=== PATIENT | female | born 1980 | race American Indian/Alaskan Native ===

== ENCOUNTER 2020-12-09 10:16 | Emergency (ER) | payer OTHER ==
[2020-12-09 11:27] VITALS: BP 180/98
--- NOTE | 2020-12-09 11:36 | Emergency Department Report ---
ED Back Pain/Injury HPI - General Chief Complaint: Back Pain/Injury Stated Complaint: BACK SPINE Time Seen by Provider: 12/09/20 11:31 Source: patient Limitations: No Limitations - History of Present Illness Initial Comments: The patient was evaluated in the emergency department for symptoms described in the history of present illness. He/she was evaluated in the context of the global COVID-19 pandemic, which necessitated consideration that the patient might be at risk for infection with the virus that causes COVID-19. Institutional protocols and algorithms that pertain to the evaluation of patients at risk for COVID-19 are in a state of rapid change based on information released by regulatory bodies including the CDC and federal and state organizations. These policies and algorithms were followed during the patient's care in the emergency department. Please note that these policies, procedures and recommendations changed on a rapid basis. 40-year-old -Tong[place] female presents to the emergency room complaining of severe back pain to the mid and upper back for 4 days. Patient states she was at work lifting boxes. She denies any falls. States that she does not have a primary care provider at this time. She reports that she has been taking ibuprofen which has not helped. She does have a past medical history of epilepsy and is currently on Keppra 500 mg twice daily. MD Complaint: back pain Onset/Timin -: days(s) Similar Symptoms Previously: No Place: work Quality: sharp, stabbing Consistency: constant Improves With: none Worsens With: none Associated Symptoms: denies other symptoms - Related Data Previous Rx's Medication Instructions Recorded Last Taken Type Baclofen [Lioresal] 10 mg PO TID #30 tab 12/09/20 Unknown Rx Naproxen 500 mg PO BID PRN #20 tablet 12/09/20 Unknown Rx Allergies Allergy/AdvReac Type Severity Reaction Status Date / Time No Known Allergies Allergy Unverified 12/09/20 11:28 ED Review of Systems ROS: Stated complaint: BACK SPINE Other details as noted in HPI Comment: All other systems reviewed and negative ED Past Medical Hx - Medications Home Medications: Home Medications Medication Instructions Recorded Confirmed Last Taken Type Baclofen [Lioresal] 10 mg PO TID #30 tab 12/09/20 Unknown Rx Naproxen 500 mg PO BID PRN #20 tablet 12/09/20 Unknown Rx ED Physical Exam - General Limitations: No Limitations General appearance: alert, in no apparent distress - Head Head exam: Present: atraumatic, normocephalic - Eye Eye exam: Present: normal appearance - ENT ENT exam: Present: mucous membranes moist - Neck Neck exam: Present: normal inspection - Respiratory Respiratory exam: Present: normal lung sounds bilaterally. Absent: accessory muscle use - Cardiovascular Cardiovascular Exam: Present: regular rate - GI/Abdominal GI/Abdominal exam: Present: soft, normal bowel sounds. Absent: distended, tenderness, guarding - Extremities Exam Extremities exam: Present: normal inspection, full ROM - Back Exam Back exam: Present: full ROM, muscle spasm. Absent: vertebral tenderness - Neurological Exam Neurological exam: Present: alert, oriented X3 - Psychiatric Psychiatric exam: Present: normal affect, normal mood - Skin Skin exam: Present: warm, dry, intact, normal color. Absent: rash ED Course Vital Signs 12/09/20 11:25 Temperature 98.3 F Pulse Rate 71 Respiratory 16 Rate Blood Pressure 180/98 [Right] O2 Sat by Pulse 100 Oximetry ED Medical Decision Making - Medical Decision Making 40-year-old -Tong[place] female presents to the emergency room complaining of severe back pain to the mid and upper back for 4 days. Patient states she was at work lifting boxes. She denies any falls. States that she does not have a primary care provider at this time. She reports that she has been taking ibuprofen which has not helped. She does have a past medical history of epilepsy and is currently on Keppra 500 mg twice daily. Patient placed on naproxen 500 mg p.o. twice daily and baclofen 10 mg p.o. 3 times daily as needed. Patient referred to her primary care provider and orthopedics. Instructed patient to increase her water intake. Critical care attestation.: If time is entered above; I have spent that time in minutes in the direct care of this critically ill patient, excluding procedure time. ED Disposition Clinical Impression: Back pain Disposition: HOME / SELF CARE / HOMELESS Is pt being admited?: No Does the pt Need Aspirin: No Condition: Stable Instructions: Acute Back Pain, Adult, Preventing Back Pain for New Parents Additional Instructions: Please take medication as prescribed. Increase your fluid intake. Follow-up with a back specialist or primary care provider Prescriptions: Baclofen [Lioresal] 10 mg PO TID #30 tab Naproxen 500 mg PO BID PRN #20 tablet PRN Reason: Pain , Severe (7-10) Referrals: ALEKS VALDOVINOS MD [Staff Physician] - 3-5 Days [facility] [Provider Group] - 3-5 Days Time of Disposition: 11:40
== END 2020-12-09 12:04 | disposition home or self-care (01) ==
LOC: ED 10:16
DX: M54.9 Dorsalgia, unspecified (principal)
CPT/HCPCS: 99281

== ENCOUNTER 2021-02-17 21:23 | Emergency (ER) | payer SELFPAY ==
[2021-02-17 21:33] VITALS: BP 138/82
[2021-02-17] MEDS ORDERED: levETIRAcetam 1000 MG/NS 0.75% 1,000 MG/100 ML BAG IV ONE (21:34)
--- NOTE | 2021-02-17 21:39 | Emergency Department Report ---
ED Seizure HPI - General Chief Complaint: Seizure Stated Complaint: SEIZURES Time Seen by Provider: 02/17/21 21:28 Source: patient Mode of arrival: Stretcher Limitations: No Limitations - History of Present Illness Initial Comments: Patient is 41 years old female with history of seizure. Patient is noncompliant with her medication. Patient stated that she is out of her Keppra for a while because she does not have insurance. Patient brought to the emergency room via EMS for evaluation of 1 episode of generalized tonic-clonic seizure. Upon arrival to the ER patient is alert, oriented x3 no acute distress. Patient has ecchymosis to the forehead. Patient denied any fever or chills. MD Complaint: seizure -: Sudden Description of Episode: loss of consciousness, tonic-clonic movement, post-event confusion Witnessed:: Yes Trauma: Yes Seizure History: known seizure disorder Possible Precipitating Event: medication Associated Symptoms: denies other symptoms Treatments Prior to Arrival: none - Related Data Previous Rx's Medication Instructions Recorded Last Taken Type Baclofen [Lioresal] 10 mg PO TID #30 tab 12/09/20 Unknown Rx Naproxen 500 mg PO BID PRN #20 tablet 12/09/20 Unknown Rx Allergies Allergy/AdvReac Type Severity Reaction Status Date / Time No Known Allergies Allergy Verified 02/17/21 21:32 ED Review of Systems ROS: Stated complaint: SEIZURES Other details as noted in HPI Comment: All other systems reviewed and negative Constitutional: denies: chills, fever Respiratory: denies: cough, orthopnea, shortness of breath, SOB with exertion, wheezing Cardiovascular: denies: chest pain, palpitations, dyspnea on exertion Gastrointestinal: denies: abdominal pain, nausea, vomiting, diarrhea, constipation, hematemesis, melena, hematochezia Musculoskeletal: denies: back pain Neurological: denies: headache, weakness, numbness, paresthesias, confusion, abnormal gait ED Past Medical Hx - Past Medical History Hx Seizures: Yes - Medications Home Medications: Home Medications Medication Instructions Recorded Confirmed Last Taken Type Baclofen [Lioresal] 10 mg PO TID #30 tab 12/09/20 Unknown Rx Naproxen 500 mg PO BID PRN #20 tablet 12/09/20 Unknown Rx ED Physical Exam - General Limitations: No Limitations General appearance: alert, in no apparent distress - Head Head exam: Present: other (Ecchymosis to the forehead.) - ENT ENT exam: Present: normal exam, normal orophraynx, mucous membranes moist - Neck Neck exam: Present: normal inspection, full ROM. Absent: tenderness, meningismus - Respiratory Respiratory exam: Present: normal lung sounds bilaterally - Cardiovascular Cardiovascular Exam: Present: regular rate, normal rhythm, normal heart sounds - GI/Abdominal GI/Abdominal exam: Present: soft, normal bowel sounds. Absent: distended, te nderness, guarding, rebound, rigid, organomegaly, mass, bruit, pulsatile mass, hernia - Extremities Exam Extremities exam: Present: normal inspection, full ROM, normal capillary refill. Absent: tenderness, pedal edema, joint swelling, calf tenderness - Back Exam Back exam: Present: normal inspection, full ROM. Absent: CVA tenderness (R), CVA tenderness (L) - Neurological Exam Neurological exam: Present: alert, oriented X3, CN II-XII intact, normal gait, reflexes normal. Absent: motor sensory deficit - Psychiatric Psychiatric exam: Present: normal mood - Skin Skin exam: Present: warm, intact, abrasion, ecchymosis ED Course Vital Signs 02/17/21 21:32 Temperature 98.2 F Pulse Rate 120 H Respiratory 16 Rate Blood Pressure 138/82 [Right] O2 Sat by Pulse 96 Oximetry ED Medical Decision Making - Lab Data Result diagrams: 02/17/21 21:41 02/17/21 21:41 - Radiology Data Radiology results: report reviewed - Medical Decision Making Patient is 41 years old female with history of seizure. Patient is noncompliant with her medication. Patient stated that she is out of her Keppra for a while because she does not have insurance. Patient brought to the emergency room via EMS for evaluation of 1 episode of generalized tonic-clonic seizure. Upon arrival to the ER patient is alert, oriented x3 no acute distress. Patient has ecchymosis to the forehead. Patient denied any fever or chills. Patient received Keppra 1 g IV. Labs reviewed and is unremarkable except for mild leukocytosis most likely secondary to seizure. CT brain is negative for acute finding. Patient given prescription for Keppra and advised to follow-up with his neurologist in the next 2 to 3 days and to return to the ER if she develop any new symptoms. Critical care attestation.: If time is entered above; I have spent that time in minutes in the direct care of this critically ill patient, excluding procedure time. ED Disposition Clinical Impression: Seizure, Acute head injury Disposition: 01 HOME / SELF CARE / HOMELESS Is pt being admited?: No Condition: Stable Instructions: Head Injury, Adult, Seizure, Adult Referrals: PRIMARY CARE, [Primary Care Provider] - 3-5 Days ELIZABETH BAGLEY MD [Referring] - 3-5 Days
[2021-02-17 21:52] LABS: Hematocrit 42.1 % (30.3-42.9); Hemoglobin 13.8 gm/dl (10.1-14.3); Mean Corpuscular HGB Conc 33 % (30-34); Mean Corpuscular Volume 92 fl (79-97); Platelet Count 221 K/mm3 (140-440); Red Cell Distribution Width 13.9 % (13.2-15.2)
[2021-02-17 22:14] LABS: Alanine Aminotransferase 26 units/L (7-56); Albumin 4.2 g/dL (3.9-5); Blood Urea Nitrogen 11 mg/dL (7-17); Calcium 9.1 mg/dL (8.4-10.2); Hemolysis Index 10
[2021-02-17 22:15] LABS: BUN/Creatinine Ratio 18; Bilirubin,Direct < 0.2 mg/dL (0-0.2)
--- NOTE | 2021-02-17 22:20 | Cat Scan Report ---
CT HEAD WITHOUT CONTRAST INDICATION / CLINICAL INFORMATION: Seizure/head injury. TECHNIQUE: All CT scans at this location are performed using CT dose reduction for ALARA by means of automated exposure control. COMPARISON: None available. FINDINGS: HEMORRHAGE: None. ACUTE INFARCTION: No Significant Abnormality MASS/MASS EFFECT: No Significant Abnormality CEREBRAL PARENCHYMA: No acute focal attenuation abnormality. VENTRICULAR SYSTEM: Normal in size and morphology for the patient's age. ORBITS: Normal as visualized. SKULL: No significant abnormality. PARANASAL SINUSES / MASTOID AIR CELLS: Normal as visualized. ADDITIONAL FINDINGS: Mild soft tissue swelling of the right forehead.. IMPRESSION: 1. No acute intracranial injury. 2. Mild soft tissue swelling right forehead Signer Name: Oniel Durham MD Signed: 02/17/2021 10:16 PM Workstation Name: [id number]
[2021-02-17] MEDS ORDERED: IBUPROFEN 600 MG TAB PO ONE (23:16)
[2021-02-18 02:01] LABS: Total Cells Counted 100
[2021-02-18 02:02] LABS: Platelet Estimate Consistent w Auto; RBC Morphology Normal
== END 2021-02-18 00:05 | disposition home or self-care (01) ==
LOC: ED 21:23
DX: R56.9 Unspecified convulsions (principal); S09.90XA Unspecified injury of head, initial encounter; X58.XXXA Exposure to other specified factors, initial encounter; Y93.89 Activity, other specified; Y92.89 Other specified places as the place of occurrence of the external cause; Y99.8 Other external cause status
CPT/HCPCS: 36415; 70450; 80048; 80076; 84703; 85007; 85025; 96374; 99284; J1953

== ENCOUNTER 2021-04-29 14:51 | Inpatient (IN) | payer SELFPAY ==
[2021-04-29] MEDS ORDERED: dexAMETHasone 20 MG/5 ML VIAL IV ONE (16:48)
[2021-04-29] MEDS ORDERED: KETOROLAC 30 MG/1 ML INJ IV ONE (16:48)
[2021-04-29] MEDS ORDERED: MORPHINE 4 MG/1 ML INJ IV ONE (16:48)
[2021-04-29] MEDS ORDERED: ONDANSETRON 4 MG/2 ML INJ IV ONE (16:48)
--- NOTE | 2021-04-29 16:59 | Emergency Department Report ---
<ROSAJOHNNY C - Last Filed: 04/29/21 20:02> ED General Adult HPI - General Chief complaint: Sore Throat Stated complaint: SORE THROAT/EAR ACHE Time Seen by Provider: 04/29/21 16:07 - Related Data Previous Rx's Medication Instructions Recorded Last Taken Type Baclofen [Lioresal] 10 mg PO TID #30 tab 12/09/20 Unknown Rx Naproxen 500 mg PO BID PRN #20 tablet 12/09/20 Unknown Rx levETIRAcetam [Keppra TAB] 500 mg PO BID #60 tablet 02/17/21 Unknown Rx Allergies Allergy/AdvReac Type Severity Reaction Status Date / Time No Known Allergies Allergy Verified 02/17/21 21:32 ED Past Medical Hx - Medications Home Medications: Home Medications Medication Instructions Recorded Confirmed Last Taken Type Baclofen [Lioresal] 10 mg PO TID #30 tab 12/09/20 Unknown Rx Naproxen 500 mg PO BID PRN #20 tablet 12/09/20 Unknown Rx levETIRAcetam [Keppra TAB] 500 mg PO BID #60 tablet 02/17/21 Unknown Rx ED Course - Consultations Consultation #1: 04/29/21 19:38 Case discussed with [facility] transfer service. [facility] is on saturation. Awaiting ENT call back to discuss case for possible transfer Consultation #2: 04/29/21 19:57 Case was discussed with [facility] ENT physician environmental services attendant Dr. Santana who advises that since patient does not have a fluid collection she does not require ENT int ervention at this time. Recommend Unasyn and Decadron 8 mg every 8 hours for least 24 to 48 hours. She anticipates that patient will improve within 24 hours. If there is no improvement, worsening, or development of abscess patient may need ENT intervention at that time and reconsideration for transfer ED Medical Decision Making - Lab Data Result diagrams: 04/29/21 17:06 04/29/21 17:06 - Medical Decision Making Went to the bedside to evaluate patient after discussion with treating provider. Patient has a hoarse/muffled voice with significant tonsillar swelling with kissing tonsils with uvula midline. I discussed case with ENT physician environmental services attendant at [facility] who states that patient does not require ENT transfer at this time. Patient will be treated with Unasyn and Decadron and admitted to the hospitalist service for further treatment. Patient also received clindamycin and pain medication. Dr. Hair informed for admission ENT recommendations: Unasyn IV antibiotic and Decadron 8 mg every 8 hours Repeat blood pressure much improved with pain reduction. Ariel informed to start patient on her Keppra doses to prevent seizure activity ED Disposition Clinical Impression: Tonsillitis, Peritonsillitis, Swelling of pharynx, Seizure disorder Disposition: ADMITTED INPATIENT Is pt being admited?: Yes Does the pt Need Aspirin: No Condition: Stable Referrals: PRIMARY CARE, [Primary Care Provider] - 3-5 Days Time of Disposition: 20:01 (Dr. Hair hospitalist, likely will be admitted by Dr Blount.) <ARIEL BUCIO - Last Filed: 04/29/21 20:34> ED General Adult HPI - General Source: patient Mode of arrival: Ambulatory Limitations: No Limitations - History of Present Illness Initial comments: 41-year-old -[place] female patient presents with complaints of throat pain and swelling x2 weeks worsening over the past few days. Past medical history includes seizure disorder. Patient states compliance with her seizure medications. She denies any fever/chills/sweats, chest pain, shortness of breath, cough. She rates her current pain as a 9/10 in severity. She states she is having great difficulty swallowing and speaking. NKDA per patient ED Review of Systems ROS: Stated complaint: SORE THROAT/EAR ACHE Other details as noted in HPI Constitutional: denies: chills, fever, malaise ENT: throat pain Respiratory: denies: cough, shortness of breath Cardiovascular: denies: chest pain Gastrointestinal: denies: nausea, vomiting Skin: denies: change in color Neurological: denies: headache, numbness, paresthesias Hematological/Lymphatic: swollen glands ED Past Medical Hx - Past Medical History Previous Medical History?: Yes Hx Seizures: Yes - Surgical History Past Surgical History?: No ED Physical Exam - General Limitations: No Limitations General appearance: alert, other (Patient appears uncomfortable) - Head Head exam: Present: atraumatic, normocephalic - Eye Eye exam: Present: normal appearance. Absent: scleral icterus - ENT ENT exam: Present: TM's normal bilaterally - Expanded ENT Exam Expanded Mouth exam: Present: muffled voice, tongue normal. Absent: drooling, trismus Throat exam: Positive: tonsillar erythema, tonsillomegaly (3+ bilaterally) - Neck Neck exam: Present: lymphadenopathy (Moderate submandibular swelling with tenderness to palpation noted; no erythema or cellulitic changes noted) - Respiratory Respiratory exam: Present: normal lung sounds bilaterally. Absent: respiratory distress - Cardiovascular Cardiovascular Exam: Present: regular rate, normal rhythm - Neurological Exam Neurological exam: Present: alert, oriented X3 - Psychiatric Psychiatric exam: Present: normal affect, normal mood - Skin Skin exam: Present: warm, dry, intact, normal color. Absent: rash ED Course Vital Signs 04/29/21 04/29/21 04/29/21 15:56 19:35 19:44 Temperature 99.2 F Pulse Rate 102 H 88 Respiratory 16 16 Rate Blood Pressure 219/129 151/89 O2 Sat by Pulse 96 94 Oximetry ED Medical Decision Making - Lab Data Result diagrams: 04/29/21 17:06 04/29/21 17:06 Lab Results 04/29/21 04/29/21 04/29/21 Range/Units 17:06 17:06 19:46 WBC 27.6 H (4.5-11.0) K/mm3 RBC 4.76 (3.65-5.03) M/mm3 Hgb 13.9 (10.1-14.3) gm/dl Hct 44.2 H (30.3-42.9) % MCV 93 (79-97) fl MCH 29 (28-32) pg MCHC 32 (30-34) % RDW 15.8 H (13.2-15.2) % Plt Count 375 (140-440) K/mm3 Add Manual Diff Complete Total Counted 100 Seg Neuts % (Manual) 87.0 H (40.0-70.0) % Band Neutrophils % 4.0 % Lymphocytes % (Manual) 8.0 L (13.4-35.0) % Reactive Lymphs % (Man) 0 % Monocytes % (Manual) 1.0 (0.0-7.3) % Eosinophils % (Manual) 0 (0.0-4.3) % Basophils % (Manual) 0 (0.0-1.8) % Metamyelocytes % 0 % Myelocytes % 0 % Promyelocytes % 0 % Blast Cells % 0 % Nucleated RBC % Not Reportable Seg Neutrophils # Man 24.0 H (1.8-7.7) K/mm3 Band Neutrophils # 1.1 K/mm3 Lymphocytes # (Manual) 2.2 (1.2-5.4) K/mm3 Abs React Lymphs (Man) 0.0 K/mm3 Monocytes # (Manual) 0.3 (0.0-0.8) K/mm3 Eosinophils # (Manual) 0.0 (0.0-0.4) K/mm3 Basophils # (Manual) 0.0 (0.0-0.1) K/mm3 Metamyelocytes # 0.0 K/mm3 Myelocytes # 0.0 K/mm3 Promyelocytes # 0.0 K/mm3 Blast Cells # 0.0 K/mm3 WBC Morphology Not Reportable Hypersegmented Neuts Not Reportable Hyposegmented Neuts Not Reportable Hypogranular Neuts Not Reportable Smudge Cells Not Reportable Toxic Granulation Not Reportable Toxic Vacuolation Not Reportable Dohle Bodies Not Reportable Pelger-Huet Anomaly Not Reportable Renny Rods Not Reportable Platelet Estimate Consistent w auto Clumped Platelets Not Reportable Plt Clumps, EDTA Not Reportable Large Platelets Not Reportable Giant Platelets Not Reportable Platelet Satelliting Not Reportable Plt Morphology Comment Not Reportable RBC Morphology Normal Dimorphic RBCs Not Reportable Polychromasia Not Reportable Hypochromasia Not Reportable Poikilocytosis Not Reportable Anisocytosis Not Reportable Microcytosis Not Reportable Macrocytosis Not Reportable Spherocytes Not Reportable Pappenheimer Bodies Not Reportable Sickle Cells Not Reportable Target Cells Not Reportable Tear Drop Cells Not Reportable Ovalocytes Not Reportable Helmet Cells Not Reportable Dav[place] Bodies Not Reportable [place] Rings Not Reportable Melvin Cells Not Reportable Bite Cells Not Reportable Crenated Cell Not Reportable Elliptocytes Not Reportable Acanthocytes (Spur) Not Reportable Rouleaux Not Reportable Hemoglobin C Crystals Not Reportable Schistocytes Not Reportable Malaria parasites Not Reportable [place] Bodies Not Reportable Hem Pathologist Commnt No Sodium 143 (137-145) mmol/L Potassium 3.5 L (3.6-5.0) mmol/L Chloride 101.7 (98-107) mmol/L Carbon Dioxide 26 (22-30) mmol/L Anion Gap 19 mmol/L BUN 3 L (7-17) mg/dL Creatinine 0.5 L (0.6-1.2) mg/dL Estimated GFR > 60 ml/min BUN/Creatinine Ratio 6 % Glucose 125 H (65-100) mg/dL Lactic Acid 1.40 (0.7-2.0) mmol/L Calcium 9.0 (8.4-10.2) mg/dL - Radiology Data Radiology results: report reviewed CT neck w con INDICATION / CLINICAL INFORMATION: 41 years Female; throat pain, swelling, muffled voice 100 ML OMNI 300 . TECHNIQUE: Contiguous thin cut axial images obtained through the neck following IV contrast. Sagittal and coronal reconstructions performed by the technologist. All CT scans at this location are performed using CT dose reduction for ALARA by means of automated exposure control. COMPARISON: None available. FINDINGS: There is notable enlargement of the left palatine soft tissues with ill-defined focus of decreased attenuation measuring 1.7 cm AP by 2.0 cm transverse by 2.5 similar sagittally and greatest dimensions most consistent with developing abscess at. There is associated mass effect with significant narrowing of the nasopharyngeal airway. MUCOSAL SPACE: The edematous changes are seen extending within the left parapharyngeal soft tissues as well as extending inferiorly with relative effacement of the left pyriform sinus. Mild fluid attenuation is also seen within the retropharyngeal space which is likely reactive given the distribution at. There is no significant surrounding enhancement within this region. The epiglottis appears appropriate in size. The laryngeal structures are otherwise unremarkable. LYMPH NODES: There is associated reactive adenopathy within the left neck, par ticularly along the jugular chain. Milder reactive changes are seen on the right. The largest node within the left jugulodigastric region measures 1.4 cm in short axis dimension. SALIVARY GLANDS: The visualized parotid and submandibular glands demonstrate fairly symmetric attenuation without calcification. THYROID GLAND: There is nodular prominence of the isthmus of the thyroid gland with focus of relative increase attenuation measuring 1 cm AP at. Findings are nonspecific and further evaluation with thyroid ultrasound may be considered. PARANASAL SINUSES: There is focal defect involving medial left orbital wall which may be related to previous trauma or possibly developmental. Otherwise, the visualized paranasal sinuses are clear. There is mild symmetric prominence of the lacrimal glands which is of unclear etiology. No definitive focal lesions are identified. SPINE: No significant abnormality of the cervical spine appreciated. VASCULAR STRUCTURES: Vascular structures are grossly normal in appearance. IMPRESSION: 1. The findings are compatible with developing left peritonsillar abscess with surrounding edema and mass effect as detailed above. - Medical Decision Making 41-year-old -[place] female patient presents with complaints of throat pain and swelling x2 weeks worsening over the past few days. Past medical history includes seizure disorder. Patient states compliance with her seizure medications. She denies any fever/chills/sweats, chest pain, shortness of breath, cough. She rates her current pain as a 9/10 in severity. She states she is having great difficulty swallowing and speaking. NKDA per patient White count is 27 on CBC. HR 102 bpm. Lactic acid is normal. CT neck shows dev eloping L peritonsillar abscess with mass effect and significant narrowing of the nasopharyngeal airway. Pt to be admitted to hospital medicine. She is non toxic appearing at this time. Symptoms somewhat improved with IV decadron and toradol. Keppra orders placed for BID. Critical care attestation.: If time is entered above; I have spent that time in minutes in the direct care of this critically ill patient, excluding procedure time.
[2021-04-29 17:42] LABS: Hematocrit 44.2 % (30.3-42.9); Hemoglobin 13.9 gm/dl (10.1-14.3); Mean Corpuscular HGB Conc 32 % (30-34); Mean Corpuscular Volume 93 fl (79-97); Platelet Count 375 K/mm3 (140-440); Red Blood Count 4.76 M/mm3 (3.65-5.03); Red Cell Distribution Width 15.8 % (13.2-15.2)
[2021-04-29 18:01] LABS: Blood Urea Nitrogen 3 mg/dL (7-17); Hemolysis Index 4
[2021-04-29 18:03] LABS: BUN/Creatinine Ratio 6
--- NOTE | 2021-04-29 19:09 | Cat Scan Report ---
CT neck w con INDICATION / CLINICAL INFORMATION: 41 years Female; throat pain, swelling, muffled voice 100 ML OMNI 300 . TECHNIQUE: Contiguous thin cut axial images obtained through the neck following IV contrast. Sagittal and zazueta l reconstructions performed by the technologist. All CT scans at this location are performed using CT dose reduction for ALARA by means of automated exposure control. COMPARISON: None available. FINDINGS: There is notable enlargement of the left palatine soft tissues with ill-defined focus of de creased attenuation measuring 1.7 cm AP by 2.0 cm transverse by 2.5 similar sagittally and greatest d imensions most consistent with developing abscess at. There is associated mass effect with significan t narrowing of the nasopharyngeal airway. MUCOSAL SPACE: The edematous changes are seen extending within the left parapharyngeal soft tissues a s well as extending inferiorly with relative effacement of the left pyriform sinus. Mild fluid attenu ation is also seen within the retropharyngeal space which is likely reactive given the distribution a t. There is no significant surrounding enhancement within this region. The epiglottis appears appropr iate in size. The laryngeal structures are otherwise unremarkable. LYMPH NODES: There is associated reactive adenopathy within the left neck, particularly along the jug ular chain. Milder reactive changes are seen on the right. The largest node within the left jugulodig astric region measures 1.4 cm in short axis dimension. SALIVARY GLANDS: The visualized parotid and submandibular glands demonstrate fairly symmetric attenua tion without calcification. THYROID GLAND: There is nodular prominence of the isthmus of the thyroid gland with focus of relative increase attenuation measuring 1 cm AP at. Findings are nonspecific and further evaluation with thyr oid ultrasound may be considered. PARANASAL SINUSES: There is focal defect involving medial left orbital wall which may be related to p revious trauma or possibly developmental. Otherwise, the visualized paranasal sinuses are clear. Ther e is mild symmetric prominence of the lacrimal glands which is of unclear etiology. No definitive foc al lesions are identified. SPINE: No significant abnormality of the cervical spine appreciated. VASCULAR STRUCTURES: Vascular structures are grossly normal in appearance. IMPRESSION: 1. The findings are compatible with developing left peritonsillar abscess with surrounding edema and mass effect as detailed above. Signer Name: Nathan Dobbs MD Signed: 04/29/2021 7:05 PM Workstation Name: [id number]
[2021-04-29] MEDS ORDERED: HYDROmorphone 1 MG/1 ML INJ IV ONE (19:34)
[2021-04-29] MEDS ORDERED: AMPICILLIN/SULBACTA 3GM/100ML 3 GM/100 ML BAG IV ONE (19:53)
[2021-04-29 20:22] LABS: Band Neutrophils # (Manual) 1.1 K/mm3; Basophils % (Manual) 0 % (0.0-1.8); Eosinophils % (Manual) 0 % (0.0-4.3); Total Cells Counted 100
[2021-04-29 20:23] LABS: Platelet Estimate Consistent w Auto; RBC Morphology Normal
[2021-04-29] MEDS ORDERED: levETIRAcetam 500 MG/5 ML ORAL LIQD PO SCH (21:00)
[2021-04-29] MEDS ORDERED: levETIRAcetam 500 MG in DEXTROSE 5% IN WATER 100 ML IV SCH (21:00)
[2021-04-29] MEDS ORDERED: ONDANSETRON 4 MG/2 ML INJ IV PRN (21:52)
[2021-04-29] MEDS ORDERED: ALBUTEROL 2.5 MG/3 ML NEBU IH PRN (21:52)
[2021-04-29] MEDS ORDERED: ACETAMINOPHEN 325 MG TAB PO PRN (21:52)
--- NOTE | 2021-04-29 22:01 | History and Physical Report ---
History of Present Illness Date of examination: 04/29/21 Date of admission: 04/29/21 Chief complaint: Throat pain and swelling History of present illness: 41-year-old -[place] female patient presents with complaints of throat pain and swelling x2 weeks worsening over the past few days. Past medical history includes seizure disorder. Patient states compliance with her seizure medications. She denies any fever/chills/sweats, chest pain, shortness of jenni th, cough. She rates her current pain as a 9/10 in severity. She states she is having great difficulty swallowing and speaking. In the emergency room CT scan of the neck shows findings are compatible with developing left peritonsillar abscess with surrounding edema and mass-effect. Went to the bedside to evaluate patient after discussion with treating provider DR sotomayor. Patient has a hoarse/muffled voice with significant tonsillar swelling with kissing tonsils with uvula midline. ER physician discussed case with ENT physician aluminum fabrication supervisor at [facility] who states that patient does not require ENT transfer at this time. Patient will be treated with Unasyn and Decadron and admitted to the hospitalist service for further treatment. Patient also received clindamycin and pain medication. Dr. Hair informed for admission. She anticipates that patient will improve within 24 hours. If there is no improvement, worsening, or development of abscess patient may need ENT intervention at that time and reconsideration for transfer Past History Past Medical History: seizures Medications and Allergies Allergies Allergy/AdvReac Type Severity Reaction Status Date / Time No Known Allergies Allergy Verified 02/17/21 21:32 Home Medications Medication Instructions Recorded Confirmed Last Taken Type Baclofen [Lioresal] 10 mg PO TID #30 tab 12/09/20 Unknown Rx Naproxen 500 mg PO BID PRN #20 tablet 12/09/20 Unknown Rx levETIRAcetam [Keppra TAB] 500 mg PO BID #60 tablet 02/17/21 Unknown Rx Active Meds: Active Medications Levetiracetam 500 mg/ Dextrose 105 mls @ 400 mls/hr IV Q12HR PAIGE Stop: 05/05/21 23:59 Last Admin: 04/29/21 21:03 Dose: 400 mls/hr Review of Systems All systems: negative Ears, nose, mouth and throat: swelling in mouth, swelling in throat, other (Tonsillitis) Exam - Constitutional Vitals: Temp Pulse Resp BP Pulse Ox 99.2 F 88 16 151/89 94 04/29/21 15:56 04/29/21 19:35 04/29/21 19:44 04/29/21 19:35 04/29/21 19:35 General appearance: Present: no acute distress, well-nourished - EENT Eyes: Present: PERRL ENT: hearing intact, clear oral mucosa, oropharyngeal erythema, other (Tonsillitis, peritonsillitis, perineal swelling) - Neck Neck: Present: supple, normal ROM - Respiratory Respiratory effort: normal Respiratory: bilateral: CTA - Cardiovascular Heart Sounds: Present: S1 & S2. Absent: rub, click - Extremities Extremities: pulses symmetrical, No edema Peripheral Pulses: within normal limits - Abdominal General gastrointestinal: Present: soft, non-tender, non-distended, normal bowel sounds Female genitourinary: Present: normal - Integumentary Integumentary: Present: clear, warm, dry - Musculoskeletal Musculoskeletal: gait normal, strength equal bilaterally - Psychiatric Psychiatric: appropriate mood/affect, intact judgment & insight - Neurologic Neurologic: CNII-XII intact, moves all extremities Results - Labs CBC & Chem 7: 04/29/21 17:06 04/29/21 17:06 Labs: Laboratory Last Values WBC 27.6 K/mm3 (4.5-11.0) H 04/29/21 17:06 RBC 4.76 M/mm3 (3.65-5.03) 04/29/21 17:06 Hgb 13.9 gm/dl (10.1-14.3) 04/29/21 17:06 Hct 44.2 % (30.3-42.9) H 04/29/21 17:06 MCV 93 fl (79-97) 04/29/21 17:06 MCH 29 pg (28-32) 04/29/21 17:06 MCHC 32 % (30-34) 04/29/21 17:06 RDW 15.8 % (13.2-15.2) H 04/29/21 17:06 Plt Count 375 K/mm3 (140-440) 04/29/21 17:06 Add Manual Diff Complete 04/29/21 17:06 Total Counted 100 04/29/21 17:06 Seg Neuts % (Manual) 87.0 % (40.0-70.0) H 04/29/21 17:06 Band Neutrophils % 4.0 % 04/29/21 17:06 Lymphocytes % (Manual) 8.0 % (13.4-35.0) L 04/29/21 17:06 Reactive Lymphs % (Man) 0 % 04/29/21 17:06 Monocytes % (Manual) 1.0 % (0.0-7.3) 04/29/21 17:06 Eosinophils % (Manual) 0 % (0.0-4.3) 04/29/21 17:06 Basophils % (Manual) 0 % (0.0-1.8) 04/29/21 17:06 Metamyelocytes % 0 % 04/29/21 17:06 Myelocytes % 0 % 04/29/21 17:06 Promyelocytes % 0 % 04/29/21 17:06 Blast Cells % 0 % 04/29/21 17:06 Nucleated RBC % Not Reportable 04/29/21 17:06 Seg Neutrophils # Man 24.0 K/mm3 (1.8-7.7) H 04/29/21 17:06 Band Neutrophils # 1.1 K/mm3 04/29/21 17:06 Lymphocytes # (Manual) 2.2 K/mm3 (1.2-5.4) 04/29/21 17:06 Abs React Lymphs (Man) 0.0 K/mm3 04/29/21 17:06 Monocytes # (Manual) 0.3 K/mm3 (0.0-0.8) 04/29/21 17:06 Eosinophils # (Manual) 0.0 K/mm3 (0.0-0.4) 04/29/21 17:06 Basophils # (Manual) 0.0 K/mm3 (0.0-0.1) 04/29/21 17:06 Metamyelocytes # 0.0 K/mm3 04/29/21 17:06 Myelocytes # 0.0 K/mm3 04/29/21 17:06 Promyelocytes # 0.0 K/mm3 04/29/21 17:06 Blast Cells # 0.0 K/mm3 04/29/21 17:06 WBC Morphology Not Reportable 04/29/21 17:06 Hypersegmented Neuts Not Reportable 04/29/21 17:06 Hyposegmented Neuts Not Reportable 04/29/21 17:06 Hypogranular Neuts Not Reportable 04/29/21 17:06 Smudge Cells Not Reportable 04/29/21 17:06 Toxic Granulation Not Reportable 04/29/21 17:06 Toxic Vacuolation Not Reportable 04/29/21 17:06 Dohle Bodies Not Reportable 04/29/21 17:06 Pelger-Huet Anomaly Not Reportable 04/29/21 17:06 Renny Rods Not Reportable 04/29/21 17:06 Platelet Estimate Consistent w auto 04/29/21 17:06 Clumped Platelets Not Reportable 04/29/21 17:06 Plt Clumps, EDTA Not Reportable 04/29/21 17:06 Large Platelets Not Reportable 04/29/21 17:06 Giant Platelets Not Reportable 04/29/21 17:06 Platelet Satelliting Not Reportable 04/29/21 17:06 Plt Morphology Comment Not Reportable 04/29/21 17:06 RBC Morphology Normal 04/29/21 17:06 Dimorphic RBCs Not Reportable 04/29/21 17:06 Polychromasia Not Reportable 04/29/21 17:06 Hypochromasia Not Reportable 04/29/21 17:06 Poikilocytosis Not Reportable 04/29/21 17:06 Anisocytosis Not Reportable 04/29/21 17:06 Microcytosis Not Reportable 04/29/21 17:06 Macrocytosis Not Reportable 04/29/21 17:06 Spherocytes Not Reportable 04/29/21 17:06 Pappenheimer Bodies Not Reportable 04/29/21 17:06 Sickle Cells Not Reportable 04/29/21 17:06 Target Cells Not Reportable 04/29/21 17:06 Tear Drop Cells Not Reportable 04/29/21 17:06 Ovalocytes Not Reportable 04/29/21 17:06 Helmet Cells Not Reportable 04/29/21 17:06 Davison-Chamisal Bodies Not Reportable 04/29/21 17:06 [place] Rings Not Reportable 04/29/21 17:06 [place] Cells Not Reportable 04/29/21 17:06 Bite Cells Not Reportable 04/29/21 17:06 Crenated Cell Not Reportable 04/29/21 17:06 Elliptocytes Not Reportable 04/29/21 17:06 Acanthocytes (Spur) Not Reportable 04/29/21 17:06 Rouleaux Not Reportable 04/29/21 17:06 Hemoglobin C Crystals Not Reportable 04/29/21 17:06 Schistocytes Not Reportable 04/29/21 17:06 Malaria parasites Not Reportable 04/29/21 17:06 Pedro Pablo Bodies Not Reportable 04/29/21 17:06 Hem Pathologist Commnt No 04/29/21 17:06 Sodium 143 mmol/L (137-145) 04/29/21 17:06 Potassium 3.5 mmol/L (3.6-5.0) L 04/29/21 17:06 Chloride 101.7 mmol/L (98-107) 04/29/21 17:06 Carbon Dioxide 26 mmol/L (22-30) 04/29/21 17:06 Anion Gap 19 mmol/L 04/29/21 17:06 BUN 3 mg/dL (7-17) L 04/29/21 17:06 Creatinine 0.5 mg/dL (0.6-1.2) L 04/29/21 17:06 Estimated GFR > 60 ml/min 04/29/21 17:06 BUN/Creatinine Ratio 6 % 04/29/21 17:06 Glucose 125 mg/dL (65-100) H 04/29/21 17:06 Lactic Acid 1.40 mmol/L (0.7-2.0) 04/29/21 19:46 Calcium 9.0 mg/dL (8.4-10.2) 04/29/21 17:06 - Imaging and Cardiology CT scan - chest: report reviewed Assessment and Plan VTE prophylaxis?: Chemical Plan of care discussed with patient/family: Yes - Patient Problems (1) Tonsillitis Current Visit: Yes Status: Acute Plan to address problem: Admit the patient to the medical floor telemetry. NPO. D5 half-normal saline at the rate of 100 cc/h. oxygen by nasal cannula 3 L/min. DuoNeb by nebulizer every 4 hours as needed. Unasyn 3 g IV every every 6 hours. Decadron 8 mg IV every 8 hours as per ENT recommendation. Blood culture throat culture. Get the patient from the evening shift Dr. Hair. ER physician unable to transfer the patient to [facility] and any other facility. As per discussion with ER physician with [facility] ENT physician on-call Dr. Santana who advises that since patient does not have a fluid collection she does not require ENT intervention at this time. Recommend Unasyn and Decadron 8 mg every 8 hours for least 24 to 48 hours. She anticipates that patient will improve within 24 hours. If there is no improvement, worsening, or development of abscess patient may need ENT intervention at that time and reconsideration for transfer (2) Peritonsillitis Current Visit: Yes Status: Acute Plan to address problem: Admit the patient to the medical telemetry. Oxygen by nasal cannula 3 L/min. DuoNeb by nebulizer every 4 hours as needed. Unasyn 3 g IV every every 6 hours. Decadron 8 mg IV every 8 hours as per ENT recommendation. Blood culture throat culture. Get the patient from the evening shift Dr. Hair. ER physician unable to transfer the patient to [facility] and any other facility. As per discussion with ER physician with [facility] ENT physician on-call Dr. Santana who advises that since patient does not have a fluid collection she does not require ENT intervention at this time. Recommend Unasyn and Decadron 8 mg every 8 hours for least 24 to 48 hours. She anticipates that patient will improve within 24 hours. If there is no improvement, worsening, or development of abscess patient may need ENT intervention at that time and reconsideration for transfer (3) Swelling of pharynx Current Visit: Yes Status: Acute Plan to address problem: Oxygen by nasal cannula 3 L/min. DuoNeb by nebulizer every 4 hours as needed. Unasyn 3 g IV every every 6 hours. Decadron 8 mg IV every 8 hours as per ENT recommendation. Blood culture throat culture. Get the patient from the evening shift Dr. Hair. ER physician unable to transfer the patient to [facility] and any other facility. As per discussion with ER physician with [facility] ENT physician on-call Dr. Santana who advises that since patient does not have a fluid collection she does not require ENT intervention at this time. Recommend Unasyn and Decadron 8 mg every 8 hours for least 24 to 48 hours. She anticipates that patient will improve within 24 hours. If there is no improvement, worsening, or development of abscess patient may need ENT intervention at that time and reconsideration for transfer (4) DVT prophylaxis Current Visit: Yes Status: Acute Plan to address problem: Heparin 5000 units subcu every 8 hours for DVT prophylaxis. Pepcid 20 mg IV every 12 hours for GI prophylaxis. Patient is a full code
[2021-04-30] MEDS: dexAMETHasone 4 MG/ML VIAL IV SCH ×3 (01:08→16:02)
[2021-04-30] MEDS: D5W/0.45% NACL 1,000 ML IV SCH ×2 (01:09→13:08)
[2021-04-30] MEDS: HYDROmorphone 1 MG/1 ML INJ IV PRN ×3 (01:09→16:49)
[2021-04-30] MEDS: IPRATROPIUM/ALBUTEROL SULFATE 3 ML AMPUL.NEB IH SCH ×3 (02:11→13:25)
[2021-04-30] MEDS: AMPICILLIN/SULBACTA 3GM/100ML 3 GM/100 ML BAG IV SCH ×3 (03:08→16:02)
[2021-04-30 06:24] LABS: Blood Urea Nitrogen 7 mg/dL (7-17); Calcium 8.9 mg/dL (8.4-10.2); Hemolysis Index 2
[2021-04-30 06:25] LABS: BUN/Creatinine Ratio 12
[2021-04-30] MEDS: MORPHINE 2 MG/1 ML INJ IV PRN ×2 (06:26→21:34)
[2021-04-30] MEDS: HEPARIN 5,000 UNIT/1 ML VIAL SUB-Q SCH ×4 (06:27→21:38)
[2021-04-30 06:28] LABS: Hematocrit 41.2 % (30.3-42.9); Hemoglobin 13.4 gm/dl (10.1-14.3); Mean Corpuscular HGB Conc 33 % (30-34); Mean Corpuscular Volume 93 fl (79-97); Platelet Count 347 K/mm3 (140-440); Red Blood Count 4.41 M/mm3 (3.65-5.03); Red Cell Distribution Width 15.5 % (13.2-15.2)
[2021-04-30] MEDS: FAMOTIDINE 20 MG/2 ML INJ IV SCH ×3 (10:14→21:34)
[2021-04-30] MEDS: levETIRAcetam 500 MG in DEXTROSE 5% IN WATER 100 ML IV SCH ×2 (11:05→21:34)
--- NOTE | 2021-04-30 15:10 | Progress Note ---
Assessment and Plan Assessment and plan: #Left peritonsillar abscess CT neck revealing surrounding edema and mass-effect but without fluid possible for draining [place] [facility] consulted in the ED, and they stated no surgical intervention is necessary at this time as the patient does not have a fluid collection. Patient endorses having multiple fractured teeth with possible overlying infection as a source of abscess Continue Unasyn 3 g every 6 hours and IV dexamethasone exams every 8 hours Continue n.p.o. status Closely monitor patient to ensure respiratory distress is not upper. If so, patient will require transfer to outside hospital for higher level of care ENT. #Possible obstructive sleep apnea #Acute hypoxic respiratory failure - etiology: Patient to be secondary to undiagnosed JUAN - baseline oxygen requirements: None - supplemental oxygen: 2 L nasal cannula when sleeping -Patient would require sleep study to be performed in outpatient setting for further evaluation -Wean oxygen as tolerated. Continue to monitor. #Seizure disorder Continue IV Keppra 500 mg twice daily #Obesity #Weight loss counseling #Exercise counseling - BMI 30.4 - Counseled patient on the importance of weight loss, incorporating exercise, and dietary changes (lean meats, fresh fruits and vegetables, and water intake). Patient expresses understanding. - Time: +10 min Disposition Plan: Continue medical management Total Time Spent with Patient (Minutes): 45 minutes History Interval history: No acute events overnight. Hospitalist Physical - Constitutional Vitals: Temp Pulse Resp BP Pulse Ox 97.4 F L 71 20 131/86 91 04/30/21 08:03 04/30/21 13:25 04/30/21 13:25 04/30/21 08:03 04/30/21 12:51 General appearance: Present: no acute distress, well-nourished - EENT Eyes: Present: PERRL, EOM intact ENT: hearing intact, clear oral mucosa, dentition normal, other (Mild palpable edema of left submandibular angle) - Neck Neck: Present: supple, normal ROM - Respiratory Respiratory effort: normal Respiratory: bilateral: diminished (2 L nasal cannula) - Cardiovascular Rhythm: regular Heart Sounds: Present: S1 & S2 - Extremities Extremities: no ischemia, pulses intact, pulses symmetrical, No edema, normal temperature, normal color, Full ROM Peripheral Pulses: within normal limits - Abdominal General gastrointestinal: soft, non-tender, non-distended, normal bowel sounds - Integumentary Integumentary: Present: clear, warm, dry - Psychiatric Psychiatric: appropriate mood/affect, intact judgment & insight, memory intact, cooperative - Neurologic Neurologic: CNII-XII intact, moves all extremities - Allied Health Allied health notes reviewed: nursing Results - Labs CBC & Chem 7: 04/30/21 05:14 04/30/21 05:14 Labs: Laboratory Last Values WBC 26.0 K/mm3 (4.5-11.0) H 04/30/21 05:14 RBC 4.41 M/mm3 (3.65-5.03) 04/30/21 05:14 Hgb 13.4 gm/dl (10.1-14.3) 04/30/21 05:14 Hct 41.2 % (30.3-42.9) 04/30/21 05:14 MCV 93 fl (79-97) 04/30/21 05:14 MCH 31 pg (28-32) 04/30/21 05:14 MCHC 33 % (30-34) 04/30/21 05:14 RDW 15.5 % (13.2-15.2) H 04/30/21 05:14 Plt Count 347 K/mm3 (140-440) 04/30/21 05:14 Add Manual Diff Complete 04/30/21 05:14 Total Counted 100 04/29/21 17:06 Seg Neutrophils % Director Of Partner Marketing 04/30/21 05:14 Seg Neuts % (Manual) 87.0 % (40.0-70.0) H 04/29/21 17:06 Band Neutrophils % 4.0 % 04/29/21 17:06 Lymphocytes % (Manual) 8.0 % (13.4-35.0) L 04/29/21 17:06 Reactive Lymphs % (Man) 0 % 04/29/21 17:06 Monocytes % (Manual) 1.0 % (0.0-7.3) 04/29/21 17:06 Eosinophils % (Manual) 0 % (0.0-4.3) 04/29/21 17:06 Basophils % (Manual) 0 % (0.0-1.8) 04/29/21 17:06 Metamyelocytes % 0 % 04/29/21 17:06 Myelocytes % 0 % 04/29/21 17:06 Promyelocytes % 0 % 04/29/21 17:06 Blast Cells % 0 % 04/29/21 17:06 Nucleated RBC % Not Reportable 04/30/21 05:14 Seg Neutrophils # Man 98.0 K/mm3 (1.8-7.7) H 04/30/21 05:14 Band Neutrophils # 1.1 K/mm3 04/29/21 17:06 Lymphocytes # (Manual) 1.0 K/mm3 (1.2-5.4) L 04/30/21 05:14 Abs React Lymphs (Man) 0.0 K/mm3 04/29/21 17:06 Monocytes # (Manual) 1.0 K/mm3 (0.0-0.8) H 04/30/21 05:14 Eosinophils # (Manual) 0.0 K/mm3 (0.0-0.4) 04/29/21 17:06 Basophils # (Manual) 0.0 K/mm3 (0.0-0.1) 04/29/21 17:06 Metamyelocytes # 0.0 K/mm3 04/29/21 17:06 Myelocytes # 0.0 K/mm3 04/29/21 17:06 Promyelocytes # 0.0 K/mm3 04/29/21 17:06 Blast Cells # 0.0 K/mm3 04/29/21 17:06 WBC Morphology Not Reportable 04/30/21 05:14 Hypersegmented Neuts Not Reportable 04/30/21 05:14 Hyposegmented Neuts Not Reportable 04/30/21 05:14 Hypogranular Neuts Not Reportable 04/30/21 05:14 Smudge Cells Not Reportable 04/30/21 05:14 Toxic Granulation Not Reportable 04/30/21 05:14 Toxic Vacuolation Not Reportable 04/30/21 05:14 Dohle Bodies Not Reportable 04/30/21 05:14 Pelger-Huet Anomaly Not Reportable 04/30/21 05:14 Renny Rods Not Reportable 04/30/21 05:14 Platelet Estimate Not Reportable 04/30/21 05:14 Clumped Platelets Not Reportable 04/30/21 05:14 Plt Clumps, EDTA Not Reportable 04/30/21 05:14 Large Platelets Not Reportable 04/30/21 05:14 Giant Platelets Not Reportable 04/30/21 05:14 Platelet Satelliting Not Reportable 04/30/21 05:14 Plt Morphology Comment Not Reportable 04/30/21 05:14 RBC Morphology Not Reportable 04/30/21 05:14 Dimorphic RBCs Not Reportable 04/30/21 05:14 Polychromasia Not Reportable 04/30/21 05:14 Hypochromasia Not Reportable 04/30/21 05:14 Poikilocytosis Not Reportable 04/30/21 05:14 Anisocytosis Not Reportable 04/30/21 05:14 Microcytosis Not Reportable 04/30/21 05:14 Macrocytosis Not Reportable 04/30/21 05:14 Spherocytes Not Reportable 04/30/21 05:14 Pappenheimer Bodies Not Reportable 04/30/21 05:14 Sickle Cells Not Reportable 04/30/21 05:14 Target Cells Not Reportable 04/30/21 05:14 Tear Drop Cells Not Reportable 04/30/21 05:14 Ovalocytes Not Reportable 04/30/21 05:14 Helmet Cells Not Reportable 04/30/21 05:14 Davison-Stearns Bodies Not Reportable 04/30/21 05:14 [place] Rings Not Reportable 04/30/21 05:14 [place] Cells Not Reportable 04/30/21 05:14 Bite Cells Not Reportable 04/30/21 05:14 Crenated Cell Not Reportable 04/30/21 05:14 Elliptocytes Not Reportable 04/30/21 05:14 Acanthocytes (Spur) Not Reportable 04/30/21 05:14 Rouleaux Not Reportable 04/30/21 05:14 Hemoglobin C Crystals Not Reportable 04/30/21 05:14 Schistocytes Not Reportable 04/30/21 05:14 Malaria parasites Not Reportable 04/30/21 05:14 Pedro Pablo Bodies Not Reportable 04/30/21 05:14 Hem Pathologist Commnt No 04/30/21 05:14 Sodium 138 mmol/L (137-145) 04/30/21 05:14 Potassium 3.8 mmol/L (3.6-5.0) 04/30/21 05:14 Chloride 97.7 mmol/L (98-107) L 04/30/21 05:14 Carbon Dioxide 26 mmol/L (22-30) 04/30/21 05:14 Anion Gap 18 mmol/L 04/30/21 05:14 BUN 7 mg/dL (7-17) 04/30/21 05:14 Creatinine 0.6 mg/dL (0.6-1.2) 04/30/21 05:14 Estimated GFR > 60 ml/min 04/30/21 05:14 BUN/Creatinine Ratio 12 % 04/30/21 05:14 Glucose 207 mg/dL (65-100) H 04/30/21 05:14 Lactic Acid 1.40 mmol/L (0.7-2.0) 04/29/21 19:46 Calcium 8.9 mg/dL (8.4-10.2) 04/30/21 05:14 Steven/IV: Voiding Method Toilet Active Medications - Current Medications Current Medications: Generic Name Dose Route Start Last Admin Trade Name Freq PRN Reason Stop Dose Admin Acetaminophen 650 mg 04/29/21 21:52 Acetaminophen 325 Mg Tab PO Q4H PRN Pain MILD(1-3)/Fever >100.5/WEBB Albuterol 2.5 mg 04/29/21 21:52 Albuterol 2.5 Mg/3 Ml Nebu IH Q3HRT PRN Shortness Of Breath Albuterol/Ipratropium 1 ampul 04/30/21 02:00 04/30/21 13:25 Ipratropium/Albuterol Sulfate 3 Ml Ampul.Neb IH 1 ampul Q6HRT PAIGE Administration Dexamethasone 8 mg 04/30/21 01:00 04/30/21 10:51 Dexamethasone 4 Mg/Ml Vial IV 8 mg Q8H PAIGE Administration Famotidine 20 mg 04/29/21 22:00 04/30/21 10:16 Famotidine 20 Mg/2 Ml Inj IV Not Given BID PAIGE Heparin Sodium (Porcine) 5,000 unit 04/29/21 22:00 04/30/21 13:08 Heparin 5,000 Unit/1 Ml Vial SUB-Q 5,000 unit Q8HR PAIGE Administration Hydromorphone HCl 0.5 mg 04/29/21 21:52 04/30/21 10:51 Hydromorphone 1 Mg/1 Ml Inj IV 0.5 mg Q3H PRN Administration Pain , Severe (7-10) Dextrose/Sodium Chloride 1,000 mls @ 100 mls/hr 04/29/21 22:00 04/30/21 13:08 D5/0.45ns IV 100 mls/hr DIRECT PAIGE Administration Ampicillin Sodium/Sulbactam Sodium 3 gm in 100 mls @ 200 mls/hr 04/30/21 03:00 04/30/21 10:13 Unasyn/Ns 3 Gm/100 Ml IV 200 mls/hr Q6H PAIGE Administration Protocol Levetiracetam 500 mg/ Dextrose 105 mls @ 400 mls/hr 04/30/21 10:00 04/30/21 11:05 IV 400 mls/hr Q12HR PAIGE Administration Morphine Sulfate 2 mg 04/29/21 21:52 04/30/21 06:26 Morphine 2 Mg/1 Ml Inj IV 2 mg Q4H PRN Administration Pain, Moderate (4-6) Ondansetron HCl 4 mg 04/29/21 21:52 Ondansetron 4 Mg/2 Ml Inj IV Q8H PRN Nausea And Vomiting Sodium Chloride 10 ml 04/29/21 22:00 04/30/21 10:15 Sodium Chloride 0.9% 10 Ml Flush Syringe IV Not Given BID PAIGE Sodium Chloride 10 ml 04/29/21 21:52 Sodium Chloride 0.9% 10 Ml Flush Syringe IV PRN PRN LINE FLUSH
[2021-05-01] MEDS: IPRATROPIUM/ALBUTEROL SULFATE 3 ML AMPUL.NEB IH SCH ×4 (00:30→15:03)
[2021-05-01] MEDS: D5W/0.45% NACL 1,000 ML IV SCH (01:18)
[2021-05-01] MEDS: dexAMETHasone 4 MG/ML VIAL IV SCH ×3 (01:18→17:28)
[2021-05-01] MEDS: HEPARIN 5,000 UNIT/1 ML VIAL SUB-Q SCH ×3 (05:52→23:11)
[2021-05-01 07:44] LABS: Hemoglobin 13.3 gm/dl (10.1-14.3); Mean Corpuscular HGB Conc 32 % (30-34); Mean Corpuscular Volume 94 fl (79-97); Platelet Count 327 K/mm3 (140-440); Red Blood Count 4.46 M/mm3 (3.65-5.03); Red Cell Distribution Width 15.6 % (13.2-15.2)
[2021-05-01 08:15] LABS: Blood Urea Nitrogen 8 mg/dL (7-17); Calcium 9.6 mg/dL (8.4-10.2); Hemolysis Index 1
[2021-05-01 08:24] LABS: BUN/Creatinine Ratio 11
[2021-05-01] MEDS: AMPICILLIN/SULBACTA 3GM/100ML 3 GM/100 ML BAG IV SCH ×2 (10:34→15:42)
[2021-05-01] MEDS: MORPHINE 2 MG/1 ML INJ IV PRN ×2 (10:38→14:18)
[2021-05-01] MEDS: FAMOTIDINE 20 MG/2 ML INJ IV SCH ×2 (10:54→23:11)
[2021-05-01] MEDS: levETIRAcetam 500 MG in DEXTROSE 5% IN WATER 100 ML IV SCH (11:12)
[2021-05-01 11:52] LABS: Basophils % (Manual) 0 % (0.0-1.8); Eosinophils % (Manual) 0 % (0.0-4.3); Monocytes % (Manual) 0 % (0.0-7.3); Platelet Estimate Consistent w Auto; RBC Morphology Normal; Total Cells Counted 100
--- NOTE | 2021-05-01 12:58 | Progress Note ---
Assessment and Plan Assessment and plan: #Left peritonsillar abscess CT neck revealing surrounding edema and mass-effect but without fluid possible for draining [place] [facility] consulted in the ED, and they stated no surgical intervention is necessary at this time as the patient does not have a fluid collection. Patient endorses having multiple fractured teeth with possible overlying infection as a source of abscess Continue Unasyn 3 g every 6 hours and IV dexamethasone exams every 8 hours Consulting infectious disease; pending recs Continue n.p.o. status Closely monitor patient to ensure respiratory distress is not upper. If so, patient will require transfer to outside hospital for higher level of care ENT. #Possible obstructive sleep apnea #Acute hypoxic respiratory failure - etiology: Patient to be secondary to undiagnosed JUAN - baseline oxygen requirements: None - supplemental oxygen: 2 L nasal cannula when sleeping -Patient would require sleep study to be performed in outpatient setting for further evaluation -Wean oxygen as tolerated. Continue to monitor. #Seizure disorder Continue IV Keppra 500 mg twice daily #Obesity #Weight loss counseling #Exercise counseling - BMI 30.4 - Counseled patient on the importance of weight loss, incorporating exercise, and dietary changes (lean meats, fresh fruits and vegetables, and water intake). Patient expresses understanding. - Time: +10 min Disposition Plan: Continue medical management Total Time Spent with Patient (Minutes): 45 min History Interval history: No acute events overnight. Hospitalist Physical - Constitutional Vitals: Temp Pulse Resp BP Pulse Ox 97.3 F L 72 20 131/66 94 05/01/21 11:38 05/01/21 11:38 05/01/21 11:38 05/01/21 11:38 05/01/21 11:38 General appearance: Present: no acute distress, well-nourished - EENT Eyes: Present: PERRL, EOM intact ENT: hearing intact, clear oral mucosa, dentition normal - Neck Neck: Present: supple, normal ROM - Respiratory Respiratory effort: normal Respiratory: bilateral: CTA - Cardiovascular Rhythm: regular Heart Sounds: Present: S1 & S2 - Extremities Extremities: no ischemia, pulses intact, pulses symmetrical, No edema, normal temperature, normal color, Full ROM Peripheral Pulses: within normal limits - Abdominal General gastrointestinal: soft, non-tender, non-distended, normal bowel sounds - Integumentary Integumentary: Present: clear, warm, dry - Psychiatric Psychiatric: appropriate mood/affect, intact judgment & insight, memory intact, cooperative - Neurologic Neurologic: CNII-XII intact, moves all extremities - Allied Health Allied health notes reviewed: nursing Results - Labs CBC & Chem 7: 05/01/21 06:58 05/01/21 06:58 Labs: Laboratory Last Values WBC 23.5 K/mm3 (4.5-11.0) H 05/01/21 06:58 RBC 4.46 M/mm3 (3.65-5.03) 05/01/21 06:58 Hgb 13.3 gm/dl (10.1-14.3) 05/01/21 06:58 Hct 42.0 % (30.3-42.9) 05/01/21 06:58 MCV 94 fl (79-97) 05/01/21 06:58 MCH 30 pg (28-32) 05/01/21 06:58 MCHC 32 % (30-34) 05/01/21 06:58 RDW 15.6 % (13.2-15.2) H 05/01/21 06:58 Plt Count 327 K/mm3 (140-440) 05/01/21 06:58 Add Manual Diff Complete 05/01/21 06:58 Total Counted 100 05/01/21 06:58 Seg Neutrophils % Hydraulic Controls Technician 05/01/21 06:58 Seg Neuts % (Manual) 87.0 % (40.0-70.0) H 04/29/21 17:06 Band Neutrophils % 0 % 05/01/21 06:58 Lymphocytes % (Manual) 3.0 % (13.4-35.0) L 05/01/21 06:58 Reactive Lymphs % (Man) 4.0 % 05/01/21 06:58 Monocytes % (Manual) 0 % (0.0-7.3) 05/01/21 06:58 Eosinophils % (Manual) 0 % (0.0-4.3) 05/01/21 06:58 Basophils % (Manual) 0 % (0.0-1.8) 05/01/21 06:58 Metamyelocytes % 0 % 05/01/21 06:58 Myelocytes % 0 % 05/01/21 06:58 Promyelocytes % 0 % 05/01/21 06:58 Blast Cells % 0 % 05/01/21 06:58 Nucleated RBC % Not Reportable 05/01/21 06:58 Seg Neutrophils # Man 21.9 K/mm3 (1.8-7.7) H 05/01/21 06:58 Band Neutrophils # 0.0 K/mm3 05/01/21 06:58 Lymphocytes # (Manual) 0.7 K/mm3 (1.2-5.4) L 05/01/21 06:58 Abs React Lymphs (Man) 0.9 K/mm3 05/01/21 06:58 Monocytes # (Manual) 0.0 K/mm3 (0.0-0.8) 05/01/21 06:58 Eosinophils # (Manual) 0.0 K/mm3 (0.0-0.4) 05/01/21 06:58 Basophils # (Manual) 0.0 K/mm3 (0.0-0.1) 05/01/21 06:58 Metamyelocytes # 0.0 K/mm3 05/01/21 06:58 Myelocytes # 0.0 K/mm3 05/01/21 06:58 Promyelocytes # 0.0 K/mm3 05/01/21 06:58 Blast Cells # 0.0 K/mm3 05/01/21 06:58 WBC Morphology Not Reportable 05/01/21 06:58 Hypersegmented Neuts Not Reportable 05/01/21 06:58 Hyposegmented Neuts Not Reportable 05/01/21 06:58 Hypogranular Neuts Not Reportable 05/01/21 06:58 Smudge Cells Not Reportable 05/01/21 06:58 Toxic Granulation Not Reportable 05/01/21 06:58 Toxic Vacuolation Not Reportable 05/01/21 06:58 Dohle Bodies Not Reportable 05/01/21 06:58 Pelger-Huet Anomaly Not Reportable 05/01/21 06:58 Renny Rods Not Reportable 05/01/21 06:58 Platelet Estimate Consistent w auto 05/01/21 06:58 Clumped Platelets Not Reportable 05/01/21 06:58 Plt Clumps, EDTA Not Reportable 05/01/21 06:58 Large Platelets Not Reportable 05/01/21 06:58 Giant Platelets Not Reportable 05/01/21 06:58 Platelet Satelliting Not Reportable 05/01/21 06:58 Plt Morphology Comment Not Reportable 05/01/21 06:58 RBC Morphology Normal 05/01/21 06:58 Dimorphic RBCs Not Reportable 05/01/21 06:58 Polychromasia Not Reportable 05/01/21 06:58 Hypochromasia Not Reportable 05/01/21 06:58 Poikilocytosis Not Reportable 05/01/21 06:58 Anisocytosis Not Reportable 05/01/21 06:58 Microcytosis Not Reportable 05/01/21 06:58 Macrocytosis Not Reportable 05/01/21 06:58 Spherocytes Not Reportable 05/01/21 06:58 Pappenheimer Bodies Not Reportable 05/01/21 06:58 Sickle Cells Not Reportable 05/01/21 06:58 Target Cells Not Reportable 05/01/21 06:58 Tear Drop Cells Not Reportable 05/01/21 06:58 Ovalocytes Not Reportable 05/01/21 06:58 Helmet Cells Not Reportable 05/01/21 06:58 Davison-[place] Bodies Not Reportable 05/01/21 06:58 [place] Rings Not Reportable 05/01/21 06:58 Melvin Cells Not Reportable 05/01/21 06:58 Bite Cells Not Reportable 05/01/21 06:58 Crenated Cell Not Reportable 05/01/21 06:58 Elliptocytes Not Reportable 05/01/21 06:58 Acanthocytes (Spur) Not Reportable 05/01/21 06:58 Rouleaux Not Reportable 05/01/21 06:58 Hemoglobin C Crystals Not Reportable 05/01/21 06:58 Schistocytes Not Reportable 05/01/21 06:58 Malaria parasites Not Reportable 05/01/21 06:58 Pedro [place] Bodies Not Reportable 05/01/21 06:58 Hem Pathologist Commnt No 05/01/21 06:58 Sodium 139 mmol/L (137-145) 05/01/21 06:58 Potassium 4.1 mmol/L (3.6-5.0) 05/01/21 06:58 Chloride 102.1 mmol/L (98-107) 05/01/21 06:58 Carbon Dioxide 28 mmol/L (22-30) 05/01/21 06:58 Anion Gap 13 mmol/L 05/01/21 06:58 BUN 8 mg/dL (7-17) 05/01/21 06:58 Creatinine 0.7 mg/dL (0.6-1.2) 05/01/21 06:58 Estimated GFR > 60 ml/min 05/01/21 06:58 BUN/Creatinine Ratio 11 % 05/01/21 06:58 Glucose 161 mg/dL (65-100) H 05/01/21 06:58 Lactic Acid 1.40 mmol/L (0.7-2.0) 04/29/21 19:46 Calcium 9.6 mg/dL (8.4-10.2) 05/01/21 06:58 Steven/IV: Voiding Method Toilet Active Medications - Current Medications Current Medications: Generic Name Dose Route Start Last Admin Trade Name Freq PRN Reason Stop Dose Admin Acetaminophen 650 mg 04/29/21 21:52 Acetaminophen 325 Mg Tab PO Q4H PRN Pain MILD(1-3)/Fever >100.5/WEBB Albuterol 2.5 mg 04/29/21 21:52 Albuterol 2.5 Mg/3 Ml Nebu IH Q3HRT PRN Shortness Of Breath Albuterol/Ipratropium 1 ampul 04/30/21 02:00 05/01/21 08:11 Ipratropium/Albuterol Sulfate 3 Ml Ampul.Neb IH 1 ampul Q6HRT PAIGE Administration Dexamethasone 8 mg 04/30/21 01:00 05/01/21 10:36 Dexamethasone 4 Mg/Ml Vial IV 8 mg Q8H PAIGE Administration Famotidine 20 mg 04/29/21 22:00 05/01/21 10:54 Famotidine 20 Mg/2 Ml Inj IV 20 mg BID PAIGE Administration Heparin Sodium (Porcine) 5,000 unit 04/29/21 22:00 05/01/21 05:52 Heparin 5,000 Unit/1 Ml Vial SUB-Q Not Given Q8HR PAIGE Hydromorphone HCl 0.5 mg 04/29/21 21:52 04/30/21 16:49 Hydromorphone 1 Mg/1 Ml Inj IV 0.5 mg Q3H PRN Administration Pain , Severe (7-10) Dextrose/Sodium Chloride 1,000 mls @ 100 mls/hr 04/29/21 22:00 05/01/21 01:18 D5/0.45ns IV 100 mls/hr DIRECT PAIGE Administration Ampicillin Sodium/Sulbactam Sodium 3 gm in 100 mls @ 200 mls/hr 04/30/21 03:00 05/01/21 10:34 Unasyn/Ns 3 Gm/100 Ml IV 200 mls/hr Q6H PAIGE Administration Protocol Levetiracetam 500 mg/ Dextrose 105 mls @ 400 mls/hr 04/30/21 10:00 05/01/21 11:12 IV 400 mls/hr Q12HR PAIGE Administration Morphine Sulfate 2 mg 04/29/21 21:52 05/01/21 10:38 Morphine 2 Mg/1 Ml Inj IV 2 mg Q4H PRN Administration Pain, Moderate (4-6) Ondansetron HCl 4 mg 04/29/21 21:52 Ondansetron 4 Mg/2 Ml Inj IV Q8H PRN Nausea And Vomiting Sodium Chloride 10 ml 04/29/21 22:00 05/01/21 10:35 Sodium Chloride 0.9% 10 Ml Flush Syringe IV 10 ml BID PAIGE Administration Sodium Chloride 10 ml 04/29/21 21:52 Sodium Chloride 0.9% 10 Ml Flush Syringe IV PRN PRN LINE FLUSH
[2021-05-01] MEDS: HYDROmorphone 1 MG/1 ML INJ IV PRN (23:05)
[2021-05-02] MEDS: levETIRAcetam 500 MG in DEXTROSE 5% IN WATER 100 ML IV SCH ×4 (01:21→22:33)
[2021-05-02] MEDS: IPRATROPIUM/ALBUTEROL SULFATE 3 ML AMPUL.NEB IH SCH ×5 (02:57→21:54)
[2021-05-02 06:33] LABS: Basophils % (Auto) 0.2 % (0.0-1.8); Hemoglobin 11.9 gm/dl (10.1-14.3); Lymphocytes # (Auto) 1.8 K/mm3 (1.2-5.4); Lymphocytes % (Auto) 12.5 % (13.4-35.0); Mean Corpuscular HGB Conc 32 % (30-34); Mean Corpuscular Volume 94 fl (79-97); Monocytes # (Auto) 0.8 K/mm3 (0.0-0.8); Monocytes % (Auto) 5.7 % (0.0-7.3); Platelet Count 279 K/mm3 (140-440); Red Blood Count 3.95 M/mm3 (3.65-5.03); Red Cell Distribution Width 15.5 % (13.2-15.2)
[2021-05-02 06:55] LABS: Blood Urea Nitrogen 9 mg/dL (7-17); Calcium 8.8 mg/dL (8.4-10.2); Hemolysis Index 5
[2021-05-02 06:56] LABS: BUN/Creatinine Ratio 13
[2021-05-02] MEDS: HEPARIN 5,000 UNIT/1 ML VIAL SUB-Q SCH ×3 (06:56→22:32)
[2021-05-02] MEDS: dexAMETHasone 4 MG/ML VIAL IV SCH ×3 (06:59→18:47)
[2021-05-02] MEDS: MORPHINE 2 MG/1 ML INJ IV PRN ×3 (07:12→22:33)
[2021-05-02] MEDS: FAMOTIDINE 20 MG/2 ML INJ IV SCH ×2 (10:15→22:32)
[2021-05-02] MEDS: HYDROmorphone 1 MG/1 ML INJ IV PRN (10:28)
[2021-05-02] MEDS: AMPICILLIN/SULBACTA 3GM/100ML 3 GM/100 ML BAG IV SCH ×3 (10:31→22:47)
--- NOTE | 2021-05-02 12:40 | Progress Note ---
Assessment and Plan Assessment and plan: #Left peritonsillar abscess CT neck revealing surrounding edema and mass-effect but without fluid possible for draining [place] [facility] consulted in the ED, and they stated no surgical intervention is necessary at this time as the patient does not have a fluid collection. Patient endorses having multiple fractured teeth with possible overlying infection as a source of abscess Continue Unasyn 3 g every 6 hours and IV dexamethasone exams every 8 hours Consulting infectious disease; pending recs Starting clear liquid diet Closely monitor patient to ensure respiratory distress is not upper. If so, patient will require transfer to outside hospital for higher level of care ENT. #Possible obstructive sleep apnea #Acute hypoxic respiratory failure - etiology: Patient to be secondary to undiagnosed JUAN - baseline oxygen requirements: None - supplemental oxygen: 2 L nasal cannula when sleeping -Patient would require sleep study to be performed in outpatient setting for further evaluation -Wean oxygen as tolerated. Continue to monitor. #Seizure disorder Continue IV Keppra 500 mg twice daily #Obesity #Weight loss counseling #Exercise counseling - BMI 30.4 - Counseled patient on the importance of weight loss, incorporating exercise, and dietary changes (lean meats, fresh fruits and vegetables, and water intake). Patient expresses understanding. - Time: +10 min Disposition Plan: Continue medical management Total Time Spent with Patient (Minutes): 45 min History Interval history: No acute events overnight. Hospitalist Physical - Constitutional Vitals: Temp Pulse Resp BP Pulse Ox 98.0 F 68 14 132/79 92 05/02/21 06:17 05/02/21 12:04 05/02/21 12:04 05/02/21 06:17 05/02/21 06:17 General appearance: Present: no acute distress, well-nourished - EENT Eyes: Present: PERRL, EOM intact ENT: hearing intact, clear oral mucosa - Neck Neck: Present: supple, normal ROM - Respiratory Respiratory effort: normal Respiratory: bilateral: CTA - Cardiovascular Rhythm: regular Heart Sounds: Present: S1 & S2 - Extremities Extremities: no ischemia, pulses intact, pulses symmetrical, No edema, normal temperature, normal color, Full ROM Peripheral Pulses: within normal limits - Abdominal General gastrointestinal: soft, non-tender, non-distended, normal bowel sounds - Integumentary Integumentary: Present: clear, warm, dry - Psychiatric Psychiatric: appropriate mood/affect, intact judgment & insight, memory intact, cooperative - Neurologic Neurologic: CNII-XII intact, moves all extremities - Allied Health Allied health notes reviewed: nursing Results - Labs CBC & Chem 7: 05/02/21 04:29 05/02/21 04:29 Labs: Laboratory Last Values WBC 14.3 K/mm3 (4.5-11.0) H 05/02/21 04:29 RBC 3.95 M/mm3 (3.65-5.03) 05/02/21 04:29 Hgb 11.9 gm/dl (10.1-14.3) 05/02/21 04:29 Hct 37.0 % (30.3-42.9) 05/02/21 04:29 MCV 94 fl (79-97) 05/02/21 04:29 MCH 30 pg (28-32) 05/02/21 04:29 MCHC 32 % (30-34) 05/02/21 04:29 RDW 15.5 % (13.2-15.2) H 05/02/21 04:29 Plt Count 279 K/mm3 (140-440) 05/02/21 04:29 Lymph % (Auto) 12.5 % (13.4-35.0) L 05/02/21 04:29 [place] % (Auto) 5.7 % (0.0-7.3) 05/02/21 04:29 Eos % (Auto) 0.0 % (0.0-4.3) 05/02/21 04:29 Baso % (Auto) 0.2 % (0.0-1.8) 05/02/21 04:29 Lymph # (Auto) 1.8 K/mm3 (1.2-5.4) 05/02/21 04:29 [place] # (Auto) 0.8 K/mm3 (0.0-0.8) 05/02/21 04:29 Eos # (Auto) 0.0 K/mm3 (0.0-0.4) 05/02/21 04:29 Baso # (Auto) 0.0 K/mm3 (0.0-0.1) 05/02/21 04:29 Add Manual Diff Complete 05/01/21 06:58 Total Counted 100 05/01/21 06:58 Seg Neutrophils % 81.6 % (40.0-70.0) H 05/02/21 04:29 Seg Neuts % (Manual) 87.0 % (40.0-70.0) H 04/29/21 17:06 Band Neutrophils % 0 % 05/01/21 06:58 Lymphocytes % (Manual) 3.0 % (13.4-35.0) L 05/01/21 06:58 Reactive Lymphs % (Man) 4.0 % 05/01/21 06:58 Monocytes % (Manual) 0 % (0.0-7.3) 05/01/21 06:58 Eosinophils % (Manual) 0 % (0.0-4.3) 05/01/21 06:58 Basophils % (Manual) 0 % (0.0-1.8) 05/01/21 06:58 Metamyelocytes % 0 % 05/01/21 06:58 Myelocytes % 0 % 05/01/21 06:58 Promyelocytes % 0 % 05/01/21 06:58 Blast Cells % 0 % 05/01/21 06:58 Nucleated RBC % Not Reportable 05/01/21 06:58 Seg Neutrophils # 11.7 K/mm3 (1.8-7.7) H 05/02/21 04:29 Seg Neutrophils # Man 21.9 K/mm3 (1.8-7.7) H 05/01/21 06:58 Band Neutrophils # 0.0 K/mm3 05/01/21 06:58 Lymphocytes # (Manual) 0.7 K/mm3 (1.2-5.4) L 05/01/21 06:58 Abs React Lymphs (Man) 0.9 K/mm3 05/01/21 06:58 Monocytes # (Manual) 0.0 K/mm3 (0.0-0.8) 05/01/21 06:58 Eosinophils # (Manual) 0.0 K/mm3 (0.0-0.4) 05/01/21 06:58 Basophils # (Manual) 0.0 K/mm3 (0.0-0.1) 05/01/21 06:58 Metamyelocytes # 0.0 K/mm3 05/01/21 06:58 Myelocytes # 0.0 K/mm3 05/01/21 06:58 Promyelocytes # 0.0 K/mm3 05/01/21 06:58 Blast Cells # 0.0 K/mm3 05/01/21 06:58 WBC Morphology Not Reportable 05/01/21 06:58 Hypersegmented Neuts Not Reportable 05/01/21 06:58 Hyposegmented Neuts Not Reportable 05/01/21 06:58 Hypogranular Neuts Not Reportable 05/01/21 06:58 Smudge Cells Not Reportable 05/01/21 06:58 Toxic Granulation Not Reportable 05/01/21 06:58 Toxic Vacuolation Not Reportable 05/01/21 06:58 Dohle Bodies Not Reportable 05/01/21 06:58 Pelger-Huet Anomaly Not Reportable 05/01/21 06:58 Renny Rods Not Reportable 05/01/21 06:58 Platelet Estimate Consistent w auto 05/01/21 06:58 Clumped Platelets Not Reportable 05/01/21 06:58 Plt Clumps, EDTA Not Reportable 05/01/21 06:58 Large Platelets Not Reportable 05/01/21 06:58 Giant Platelets Not Reportable 05/01/21 06:58 Platelet Satelliting Not Reportable 05/01/21 06:58 Plt Morphology Comment Not Reportable 05/01/21 06:58 RBC Morphology Normal 05/01/21 06:58 Dimorphic RBCs Not Reportable 05/01/21 06:58 Polychromasia Not Reportable 05/01/21 06:58 Hypochromasia Not Reportable 05/01/21 06:58 Poikilocytosis Not Reportable 05/01/21 06:58 Anisocytosis Not Reportable 05/01/21 06:58 Microcytosis Not Reportable 05/01/21 06:58 Macrocytosis Not Reportable 05/01/21 06:58 Spherocytes Not Reportable 05/01/21 06:58 Pappenheimer Bodies Not Reportable 05/01/21 06:58 Sickle Cells Not Reportable 05/01/21 06:58 Target Cells Not Reportable 05/01/21 06:58 Tear Drop Cells Not Reportable 05/01/21 06:58 Ovalocytes Not Reportable 05/01/21 06:58 Helmet Cells Not Reportable 05/01/21 06:58 Davison-[place] Bodies Not Reportable 05/01/21 06:58 [place] Rings Not Reportable 05/01/21 06:58 Melvin Cells Not Reportable 05/01/21 06:58 Bite Cells Not Reportable 05/01/21 06:58 Crenated Cell Not Reportable 05/01/21 06:58 Elliptocytes Not Reportable 05/01/21 06:58 Acanthocytes (Spur) Not Reportable 05/01/21 06:58 Rouleaux Not Reportable 05/01/21 06:58 Hemoglobin C Crystals Not Reportable 05/01/21 06:58 Schistocytes Not Reportable 05/01/21 06:58 Malaria parasites Not Reportable 05/01/21 06:58 [place] Bodies Not Reportable 05/01/21 06:58 Hem Pathologist Commnt No 05/01/21 06:58 Sodium 142 mmol/L (137-145) 05/02/21 04:29 Potassium 3.7 mmol/L (3.6-5.0) 05/02/21 04:29 Chloride 102.4 mmol/L (98-107) 05/02/21 04:29 Carbon Dioxide 26 mmol/L (22-30) 05/02/21 04:29 Anion Gap 17 mmol/L 05/02/21 04:29 BUN 9 mg/dL (7-17) 05/02/21 04:29 Creatinine 0.7 mg/dL (0.6-1.2) 05/02/21 04:29 Estimated GFR > 60 ml/min 05/02/21 04:29 BUN/Creatinine Ratio 13 % 05/02/21 04:29 Glucose 185 mg/dL (65-100) H 05/02/21 04:29 Lactic Acid 1.40 mmol/L (0.7-2.0) 04/29/21 19:46 Calcium 8.8 mg/dL (8.4-10.2) 05/02/21 04:29 Steven/IV: Voiding Method Toilet Active Medications - Current Medications Current Medications: Generic Name Dose Route Start Last Admin Trade Name Freq PRN Reason Stop Dose Admin Acetaminophen 650 mg 04/29/21 21:52 Acetaminophen 325 Mg Tab PO Q4H PRN Pain MILD(1-3)/Fever >100.5/WEBB Albuterol 2.5 mg 04/29/21 21:52 Albuterol 2.5 Mg/3 Ml Nebu IH Q3HRT PRN Shortness Of Breath Albuterol/Ipratropium 1 ampul 04/30/21 02:00 05/02/21 12:07 Ipratropium/Albuterol Sulfate 3 Ml Ampul.Neb IH 1 ampul Q6HRT PAIGE Administration Dexamethasone 8 mg 04/30/21 01:00 05/02/21 10:15 Dexamethasone 4 Mg/Ml Vial IV 8 mg Q8H PAIGE Administration Famotidine 20 mg 04/29/21 22:00 05/02/21 10:15 Famotidine 20 Mg/2 Ml Inj IV 20 mg BID PAIGE Administration Heparin Sodium (Porcine) 5,000 unit 04/29/21 22:00 05/02/21 06:56 Heparin 5,000 Unit/1 Ml Vial SUB-Q 5,000 unit Q8HR PAIGE Administration Hydromorphone HCl 0.5 mg 04/29/21 21:52 05/02/21 10:28 Hydromorphone 1 Mg/1 Ml Inj IV 0.5 mg Q3H PRN Administration Pain , Severe (7-10) Dextrose/Sodium Chloride 1,000 mls @ 100 mls/hr 04/29/21 22:00 05/01/21 23:24 D5/0.45ns IV Infused DIRECT PAIGE Infusion Ampicillin Sodium/Sulbactam Sodium 3 gm in 100 mls @ 200 mls/hr 04/30/21 03:00 05/02/21 10:31 Unasyn/Ns 3 Gm/100 Ml IV 200 mls/hr Q6H PAIGE Administration Protocol Levetiracetam 500 mg/ Dextrose 105 mls @ 400 mls/hr 04/30/21 10:00 05/02/21 10:18 IV 400 mls/hr Q12HR PAIGE Administration Morphine Sulfate 2 mg 04/29/21 21:52 05/02/21 07:12 Morphine 2 Mg/1 Ml Inj IV 2 mg Q4H PRN Administration Pain, Moderate (4-6) Ondansetron HCl 4 mg 04/29/21 21:52 Ondansetron 4 Mg/2 Ml Inj IV Q8H PRN Nausea And Vomiting Sodium Chloride 10 ml 04/29/21 22:00 05/02/21 10:31 Sodium Chloride 0.9% 10 Ml Flush Syringe IV 10 ml BID PAIGE Administration Sodium Chloride 10 ml 04/29/21 21:52 Sodium Chloride 0.9% 10 Ml Flush Syringe IV PRN PRN LINE FLUSH
[2021-05-02] MEDS: D5W/0.45% NACL 1,000 ML IV SCH (15:23)
[2021-05-03] MEDS: dexAMETHasone 4 MG/ML VIAL IV SCH ×2 (01:13→09:37)
[2021-05-03] MEDS: HYDROmorphone 1 MG/1 ML INJ IV PRN ×2 (01:22→08:45)
[2021-05-03] MEDS: D5W/0.45% NACL 1,000 ML IV SCH (02:54)
[2021-05-03 05:23] LABS: Basophils % (Auto) 0.1 % (0.0-1.8); Blood Urea Nitrogen 6 mg/dL (7-17); Calcium 8.2 mg/dL (8.4-10.2); Hematocrit 36.3 % (30.3-42.9); Hemoglobin 11.7 gm/dl (10.1-14.3); Hemolysis Index 2; Lymphocytes # (Auto) 1.3 K/mm3 (1.2-5.4); Lymphocytes % (Auto) 12.7 % (13.4-35.0); Mean Corpuscular HGB Conc 32 % (30-34); Mean Corpuscular Volume 94 fl (79-97); Monocytes # (Auto) 0.3 K/mm3 (0.0-0.8); Monocytes % (Auto) 2.7 % (0.0-7.3); Platelet Count 238 K/mm3 (140-440); Red Blood Count 3.88 M/mm3 (3.65-5.03); Red Cell Distribution Width 15.4 % (13.2-15.2)
[2021-05-03 05:34] LABS: BUN/Creatinine Ratio 9
[2021-05-03] MEDS: HEPARIN 5,000 UNIT/1 ML VIAL SUB-Q SCH (05:35)
[2021-05-03] MEDS: AMPICILLIN/SULBACTA 3GM/100ML 3 GM/100 ML BAG IV SCH ×3 (05:35→09:38)
[2021-05-03] MEDS: FAMOTIDINE 20 MG/2 ML INJ IV SCH (09:36)
--- NOTE | 2021-05-03 09:51 | Discharge Summary ---
Providers - Providers Date of Admission: 04/29/21 21:52 Date of discharge: 05/03/21 Attending physician: RAYMOND MORENO MD 05/01/21 12:58 Consult to Physician [CONS] Routine Comment: Consulting Provider: NICKY HAMILTON Physician Instructions: Reason For Exam: L peritonsillar abscess Primary care physician: [employer] Hospitalization Reason for admission: Left peritonsillar abscess Condition: Stable Pertinent studies: Reviewed. Procedures: None. Hospital course: The patient is a 41-year-old female with past medical history of seizure disorder and obesi who presented with worsening bilateral throat pain, edema, and difficulty with swallowing oral intake for approximately 2 weeks. As a result, the patient was unable to tolerate oral intake. The patient was evaluated in the emergency room with CT neck with contrast revealing a left peritonsillar abscess with surrounding edema and mass-effect without purulent drainage present. The ER physician discussed the case with ENT [place] who did not recommend ENT transfer at this point in time the patient was initiated on Unasyn and Decadron for management. The patient was made n.p.o. and was monitored in order to assess for possible respiratory distress. The patient has seen a slight improvement of symptoms, and yesterday was able to tolerate clear liquid diet. The patient will be discharged home with an additional 6-day course of Augmentin 875 mg every 12 hours and p.o. dexamethasone 4 mg daily for 6 days. The patient was counseled on monitoring for worsening symptoms such as respiratory distress, worsening pain, inability to tolerate oral intake, and she expresses understanding. During her hospitalization, the patient was found to become hypoxic when sleeping, which ends at possible obstructive sleep apnea. This will need to be evaluated with a sleep study in the outpatient setting. Patient expresses understanding. Patient is medically cleared for discharge. Disposition: HOME / SELF CARE / HOMELESS Final Discharge Diagnosis (Prints w/discharge instructions): Left peritonsillar abscess, possible obstructive sleep apnea, seizure disorder, obesity. Time spent for discharge: 45 min Core Measure Documentation - Palliative Care Palliative Care/ Comfort Measures: Not Applicable - Core Measures Any of the following diagnoses?: none Exam - Constitutional Vitals: Temp Pulse Resp BP Pulse Ox 97.9 F 42 L 16 130/68 97 05/03/21 04:59 05/03/21 04:59 05/03/21 04:59 05/03/21 04:59 05/03/21 04:59 General appearance: Present: no acute distress, well-nourished - EENT Eyes: Present: PERRL, EOM intact ENT: hearing intact, clear oral mucosa, other (Mild tenderness and swelling of left anterior neck) - Neck Neck: Present: supple, normal ROM - Respiratory Respiratory effort: normal Respiratory: bilateral: CTA - Cardiovascular Rhythm: regular Heart Sounds: Present: S1 & S2 - Extremities Extremities: no ischemia, pulses intact, pulses symmetrical, No edema, normal temperature, normal color, Full ROM Peripheral Pulses: within normal limits - Abdominal General gastrointestinal: Present: soft, non-tender, non-distended, normal bowel sounds Female genitourinary: Present: deferred - Rectal Rectal Exam: deferred - Integumentary Integumentary: Present: clear, warm, dry - Musculoskeletal Musculoskeletal: strength equal bilaterally - Psychiatric Psychiatric: appropriate mood/affect, intact judgment & insight, memory intact, cooperative - Neurologic Neurologic: CNII-XII intact, moves all extremities - Allied Health Allied health notes reviewed: nursing Plan Activity: no restrictions Diet: regular, advance as tolerated Additional Instructions: The patient is a 41-year-old female with past medical history of seizure disorder and obesi who presented with worsening bilateral throat pain, edema, and difficulty with swallowing oral intake for approximately 2 weeks. As a result, the patient was unable to tolerate oral intake. The patient was evaluated in the emergency room with CT neck with contrast revealing a left peritonsillar abscess with surrounding edema and mass-effect without purulent drainage present. The ER physician discussed the case with ENT [place] who did not recommend ENT transfer at this point in time the patient was initiated on Unasyn and Decadron for management. The patient was made n.p.o. and was monitored in order to assess for possible respiratory distress. The patient has seen a slight improvement of symptoms, and yesterday was able to tolerate clear liquid diet. The patient will be discharged home with an additional 6-day course of Augmentin 875 mg every 12 hours and p.o. dexamethasone 4 mg daily for 6 days. The patient was counseled on monitoring for worsening symptoms such as respiratory distress, worsening pain, inability to tolerate oral intake, and she expresses understanding. During her hospitalization, the patient was found to become hypoxic when sleeping, which ends at possible obstructive sleep apnea. This will need to be evaluated with a sleep study in the outpatient setting. Patient expresses understanding. Patient is medically cleared for discharge. Care Plan Goals: Patient is medically cleared for discharge Health Concerns: If the patient experiences shortness of breath, difficulty breathing, worsening pain, or inability to tolerate oral intake, the patient should return to the emergency room of a hospital that has ENT subspecialty ([facility], [facility], [facility], [facility], [facility]). Assessment: The patient is a 41-year-old female with past medical history of seizure d isorder and obesi who presented with worsening bilateral throat pain, edema, and difficulty with swallowing oral intake for approximately 2 weeks. As a result, the patient was unable to tolerate oral intake. The patient was evaluated in the emergency room with CT neck with contrast revealing a left peritonsillar abscess with surrounding edema and mass-effect without purulent drainage present. The ER physician discussed the case with ENT [place] who did not recommend ENT transfer at this point in time the patient was initiated on Unasyn and Decadron for management. The patient was made n.p.o. and was monitored in order to assess for possible respiratory distress. The patient has seen a slight improvement of symptoms, and yesterday was able to tolerate clear liquid diet. The patient will be discharged home with an additional 6-day course of Augmentin 875 mg every 12 hours and p.o. dexamethasone 4 mg daily for 6 days. The patient was counseled on monitoring for worsening symptoms such as respiratory distress, worsening pain, inability to tolerate oral intake, and she expresses understanding. During her hospitalization, the patient was found to become hypoxic when sleeping, which ends at possible obstructive sleep apnea. This will need to be evaluated with a sleep study in the outpatient setting. Patient expresses understanding. Patient is medically cleared for discharge. Follow up with: PRIMARY CAREMD [Primary Care Provider] - 3-5 Days Forms: Work/School Release Form
[2021-05-03] MEDS: levETIRAcetam 500 MG in DEXTROSE 5% IN WATER 100 ML IV SCH (10:34)
[2021-05-03] MEDS: MORPHINE 2 MG/1 ML INJ IV PRN (10:34)
[2021-05-03 12:21] VITALS: BP 129/90
--- NOTE | 2021-05-03 14:44 | Consultation ---
History of Present Illness - Reason for Consult Consult date: 05/03/21 - History of Present Illness 41-year-old female past medical history seizure presented to the hospital complaining of throat pain swelling for 2 weeks which is been acutely worse. She otherwise denies any other complaints aside from pain on swallowing and speaking. CT scan was compatible with peritonsillar abscess. Emergency room discussed with ENT and MRI to define transfer for surgical treatment. Afebrile, white count resolved after being elevated 27.6 on admission. She is currently on Unasyn. Imaging personally viewed: Neck CT: Left peritonsillar abscess Review of Systems: Bold if positive, otherwise negative General: fevers, chills, rigors HEENT: visual disturbance, diplopia, eye pain Respiratory: cough, sputum, hemoptysis, shortness of breath Cardiovascular: chest pain, syncope Gastrointestinal: nausea, vomiting, diarrhea, abdominal pain Genitourinary: dysuria, hematuria, flank pain Musculoskeletal: neck pain, back pain, joint pain, edema Neurologic: headaches, seizures Hematologic: easy bruising or bleeding Endocrine: night sweats, acute weight loss Skin: rash, jaundice, redness Psychiatric: suicidal, homicidal ideation Past History Past Medical History: seizures Past Surgical History: No surgical history Social history: no significant social history Family history: hypertension Medications and Allergies Allergies Allergy/AdvReac Type Severity Reaction Status Date / Time No Known Allergies Allergy Verified 04/30/21 08:16 Home Medications Medication Instructions Recorded Confirmed Last Taken Type Baclofen [Lioresal] 10 mg PO TID #30 tab 12/09/20 04/30/21 04/28/21 Rx levETIRAcetam [Keppra TAB] 500 mg PO BID #60 tablet 02/17/21 04/30/21 04/29/21 Rx Aspirin/Caffeine [Bc Pain Relief 2 each PO QDAY 04/30/21 04/30/21 04/29/21 History Powder Packet] Amoxicillin/K Clav Tab [Augmentin 1 tab PO Q12HR #12 tab 05/03/21 Unknown Rx 875 mg] HYDROcodone/APAP 5-325 [[place] 1 each PO Q6HR PRN #24 tablet 05/03/21 Unknown Rx 5/325] dexAMETHasone [Decadron] 4 mg PO DAILY #6 tab 05/03/21 Unknown Rx Active Meds: Active Medications Acetaminophen (Acetaminophen 325 Mg Tab) 650 mg PO Q4H PRN PRN Reason: Pain MILD(1-3)/Fever >100.5/WEBB Albuterol (Albuterol 2.5 Mg/3 Ml Nebu) 2.5 mg IH Q3HRT PRN PRN Reason: Shortness Of Breath Dexamethasone (Dexamethasone 4 Mg/Ml Vial) 8 mg IV Q8H [facility] Last Admin: 05/03/21 09:37 Dose: 8 mg Famotidine (Famotidine 20 Mg/2 Ml Inj) 20 mg IV BID [facility] Last Admin: 05/03/21 09:36 Dose: 20 mg Heparin Sodium (Porcine) (Heparin 5,000 Unit/1 Ml Vial) 5,000 unit SUB-Q Q8HR [facility] Last Admin: 05/03/21 05:35 Dose: 5,000 unit Hydromorphone HCl (Hydromorphone 1 Mg/1 Ml Inj) 0.5 mg IV Q3H PRN PRN Reason: Pain , Severe (7-10) Last Admin: 05/03/21 08:45 Dose: 0.5 mg Dextrose/Sodium Chloride (D5/0.45ns) 1,000 mls @ 100 mls/hr IV DIRECT [facility] Last Admin: 05/03/21 02:54 Dose: 100 mls/hr Ampicillin Sodium/Sulbactam Sodium (Unasyn/Ns 3 Gm/100 Ml) 3 gm in 100 mls @ 200 mls/hr IV Q6H [facility]; Protocol Last Admin: 05/03/21 09:38 Dose: 200 mls/hr Levetiracetam 500 mg/ Dextrose 105 mls @ 400 mls/hr IV Q12HR [facility] Last Admin: 05/03/21 10:34 Dose: 400 mls/hr Morphine Sulfate (Morphine 2 Mg/1 Ml Inj) 2 mg IV Q4H PRN PRN Reason: Pain, Moderate (4-6) Last Admin: 05/03/21 10:34 Dose: 2 mg Ondansetron HCl (Ondansetron 4 Mg/2 Ml Inj) 4 mg IV Q8H PRN PRN Reason: Nausea And Vomiting Sodium Chloride (Sodium Chloride 0.9% 10 Ml Flush Syringe) 10 ml IV BID [facility] Last Admin: 05/03/21 09:37 Dose: 10 ml Sodium Chloride (Sodium Chloride 0.9% 10 Ml Flush Syringe) 10 ml IV PRN PRN PRN Reason: LINE FLUSH Last Admin: 05/03/21 01:14 Dose: 10 ml Physical Examination - Physical Exam Narrative exam: Physical Exam: Constitutional: Alert, cooperative. No acute distress Head, Ears, Nose: Normocephalic, atraumatic. External ears, nose normal Eyes: Conjunctivae/corneas clear. No icterus. No ptosis. Neck: Swollen Oral: dentition fair, no thrush Cardiovascular: S1, S2 normal. Respiratory: Good air entry, clear to auscultation bilaterally GI: Soft, non-tender; bowel sounds normal. No peritoneal signs. Musculoskeletal: No pedal edema, no cyanosis. Skin: No rash or abscess Hem/Lymphatic: No palpable cervical or supraclavicular nodes. No lymphangitis Psych: Mood ok. Affect normal Neurological: Awake, alert, oriented. No gross abnormality - Constitutional Vitals: Vital Signs Temp Pulse Resp BP Pulse Ox 98.7 F 49 L 98 H 129/90 98 05/03/21 12:15 05/03/21 12:15 05/03/21 12:15 05/03/21 12:15 05/03/21 12:15 Temperature -Last 24 Hours Temperature 98.7 F Temperature 97.9 F Temperature 98.1 F Temperature 97.9 F Temperature 98.3 F Results - Labs CBC & Chem 7: 05/03/21 04:25 05/03/21 04:25 Labs: Abnormal lab results 05/03/21 05/03/21 Range/Units 04:25 04:25 RDW 15.4 H (13.2-15.2) % Lymph % (Auto) 12.7 L (13.4-35.0) % Seg Neutrophils % 84.5 H (40.0-70.0) % Seg Neutrophils # 8.9 H (1.8-7.7) K/mm3 Sodium 135 L (137-145) mmol/L BUN 6 L (7-17) mg/dL Glucose 283 H (65-100) mg/dL Calcium 8.2 L (8.4-10.2) mg/dL Assessment and Plan Cultures: None A/P: 41-year-old female past medical history seizure disorder presents with left peritonsillar abscess. #Acute sepsis: Present on admission with tachycardia and leukocytosis. Secondary to peritonsillar abscess. Resolved #Left peritonsillar abscess: No surgical intervention planned #Seizure disorder: compliant with medications Recs: -Continue Unsyn while inpatient -Would discharge with Augmentin 875/125mg q12h x10 days Thank you for the consult, we will continue to follow. Abhay Acevedo MD [facility] O: [phone] F: [phone]
== END 2021-05-03 17:48 | disposition home or self-care (01) | DRG 871 ==
LOC: ED 14:51 → 4A 21:52
PROVIDERS: ADMIT Hospitalist; ATTEND Student in an Organized Health Care Education/Training Program
DX: A41.9 Sepsis, unspecified organism (principal); J96.01 Acute respiratory failure with hypoxia; J36 Peritonsillar abscess; G47.33 Obstructive sleep apnea (adult) (pediatric); G40.909 Epilepsy, unspecified, not intractable, without status epilepticus; E66.9 Obesity, unspecified; Z68.30 Body mass index [BMI] 30.0-30.9, adult; Z71.89 Other specified counseling; Z82.49 Family history of ischemic heart disease and other diseases of the circulatory system
CPT/HCPCS: 36415; 70491; 80048; 82140; 85007; 85025; 94640; G0378; J3490; J7060; J7070; J7502; J0295; J1100; J1170; J1644; J1885; J1953; J2270; J2405; Q9967

== ENCOUNTER 2021-07-01 22:57 | Emergency (ER) | payer SELFPAY ==
[2021-07-02] MEDS ORDERED: KETOROLAC 30 MG/1 ML INJ IV ONE (01:04)
[2021-07-02] MEDS ORDERED: SODIUM CHLORIDE 0.9% 500 ML 500 ML IV ONE (01:09)
[2021-07-02 01:21] LABS: Amphetamine Screen,Urine Negative; Benzodiazepines Screen,Urine Negative; Cannabinoid Screen,Urine Negative; Cocaine Screen,Urine Negative; Methadone Screen,Urine Negative; Opiate Screen,Urine Negative
[2021-07-02 01:26] LABS: Bilirubin,Urine NEG (Negative); Blood,Urine LG (Negative); Color,Urine Yellow (Yellow); Hyaline Casts,Urine 11 /LPF; Mucus,Urine 3+ /HPF; Urobilinogen,Urine < 2.0 mg/dL (<2.0)
[2021-07-02] MEDS ORDERED: levETIRAcetam 500 MG in DEXTROSE 5% IN WATER 100 ML IV ONE (01:36)
[2021-07-02 02:03] LABS: Basophils % (Auto) 0.2 % (0.0-1.8); Eosinophils % (Auto) 0.2 % (0.0-4.3); Lymphocytes # (Auto) 2.2 K/mm3 (1.2-5.4); Lymphocytes % (Auto) 13.1 % (13.4-35.0); Mean Corpuscular HGB Conc 33 % (30-34); Mean Corpuscular Volume 93 fl (79-97); Monocytes # (Auto) 0.8 K/mm3 (0.0-0.8); Monocytes % (Auto) 4.8 % (0.0-7.3); Platelet Count 291 K/mm3 (140-440); Red Blood Count 4.96 M/mm3 (3.65-5.03); Red Cell Distribution Width 15.3 % (13.2-15.2)
[2021-07-02 02:22] LABS: Alanine Aminotransferase 20 units/L (7-56); Albumin 4.1 g/dL (3.9-5); Blood Urea Nitrogen 7 mg/dL (7-17); Calcium 9.1 mg/dL (8.4-10.2); Hemolysis Index 10
[2021-07-02 02:26] LABS: BUN/Creatinine Ratio 10
[2021-07-02] MEDS ORDERED: KETOROLAC 30 MG/1 ML INJ ONE ×2 (03:17→03:18)
--- NOTE | 2021-07-02 07:39 | Emergency Department Report ---
ED General Adult HPI - General Chief complaint: Seizure Stated complaint: SEIZURE Source: patient, EMS Mode of arrival: Stretcher Limitations: No Limitations - History of Present Illness Initial comments: This patient thinks he has a seizure this morning. She is on Keppra and states that she is compliant with the medication. The patient apparently has a history of sickle cell. She denies fever chills nausea or vomiting. Review of nurse's notes show that the patient had not been compliant with her seizure medication. The seizure apparently lasted approximately 1 minute per the daughter. -: Sudden Location: back Radiation: non-radiation Severity scale (0 -10): 8 Quality: aching Improves with: none Worsens with: movement Associated Symptoms: denies: confusion, chest pain, cough, diaphoresis, fever/chills - Related Data Home Medications Medication Instructions Recorded Confirmed Last Taken Aspirin/Caffeine [Bc Pain Relief 2 each PO QDAY 04/30/21 04/30/21 04/29/21 Powder Packet] Previous Rx's Medication Instructions Recorded Last Taken Type Baclofen [Lioresal] 10 mg PO TID #30 tab 12/09/20 04/28/21 Rx levETIRAcetam [Keppra TAB] 500 mg PO BID #60 tablet 02/17/21 04/29/21 Rx Amoxicillin/K Clav Tab [Augmentin 1 tab PO Q12HR #12 tab 05/03/21 Unknown Rx 875 mg] HYDROcodone/APAP 5-325 [[place] 1 each PO Q6HR PRN #24 tablet 05/03/21 Unknown Rx 5/325] dexAMETHasone [Decadron] 4 mg PO DAILY #6 tab 05/03/21 Unknown Rx Ketorolac [Toradol] 10 mg PO Q6H PRN #10 tab 07/02/21 Unknown Rx Allergies Allergy/AdvReac Type Severity Reaction Status Date / Time No Known Allergies Allergy Verified 04/30/21 08:16 ED Review of Systems ROS: Stated complaint: SEIZURE Other details as noted in HPI Comment: All other systems reviewed and negative Constitutional: denies: chills, fever Eyes: denies: eye pain, eye discharge, vision change Respiratory: denies: cough, shortness of breath, wheezing Cardiovascular: denies: chest pain, palpitations Neurological: denies: headache, weakness, paresthesias, confusion, abnormal gait Psychiatric: denies: anxiety, depression Hematological/Lymphatic: denies: easy bleeding ED Past Medical Hx - Past Medical History Hx Seizures: Yes Hx HIV: No - Social History Smoking Status: Current Every Day Smoker - Medications Home Medications: Home Medications Medication Instructions Recorded Confirmed Last Taken Type Baclofen [Lioresal] 10 mg PO TID #30 tab 12/09/20 04/30/21 04/28/21 Rx levETIRAcetam [Keppra TAB] 500 mg PO BID #60 tablet 02/17/21 04/30/21 04/29/21 Rx Aspirin/Caffeine [Bc Pain Relief 2 each PO QDAY 04/30/21 04/30/21 04/29/21 History Powder Packet] Amoxicillin/K Clav Tab [Augmentin 1 tab PO Q12HR #12 tab 05/03/21 Unknown Rx 875 mg] HYDROcodone/APAP 5-325 [[place] 1 each PO Q6HR PRN #24 tablet 05/03/21 Unknown Rx 5/325] dexAMETHasone [Decadron] 4 mg PO DAILY #6 tab 05/03/21 Unknown Rx Ketorolac [Toradol] 10 mg PO Q6H PRN #10 tab 07/02/21 Unknown Rx ED Physical Exam - General Limitations: No Limitations General appearance: alert, in no apparent distress - Head Head exam: Present: atraumatic, normocephalic - Eye Eye exam: Present: normal appearance, PERRL, EOMI - ENT ENT exam: Present: normal exam, mucous membranes moist - Neck Neck exam: Present: normal inspection, full ROM. Absent: tenderness - Respiratory Respiratory exam: Present: normal lung sounds bilaterally. Absent: respiratory distress - Cardiovascular Cardiovascular Exam: Present: regular rate, normal rhythm. Absent: systolic murmur, diastolic murmur, rubs, gallop - GI/Abdominal GI/Abdominal exam: Present: soft. Absent: distended, tenderness - Rectal Rectal exam: Present: deferred - Extremities Exam Extremities exam: Present: normal inspection, full ROM - Back Exam Back exam: Present: normal inspection, full ROM, tenderness (Mild to palpation of the upper back). Absent: CVA tenderness (R), CVA tenderness (L) - Neurological Exam Neurological exam: Present: alert, oriented X3 - Psychiatric Psychiatric exam: Present: normal affect, normal mood - Skin Skin exam: Present: warm, dry, intact, normal color. Absent: rash ED Course Vital Signs 07/01/21 07/02/21 23:19 04:31 Temperature 97.6 F 97.9 F Pulse Rate 95 H 79 Respiratory 18 16 Rate Blood Pressure 143/94 142/80 [Left] O2 Sat by Pulse 100 100 Oximetry ED Medical Decision Making - Lab Data Result diagrams: 07/02/21 01:16 07/02/21 01:16 Critical care attestation.: If time is entered above; I have spent that time in minutes in the direct care of this critically ill patient, excluding procedure time. ED Disposition Clinical Impression: Seizure, Back pain Disposition: HOME / SELF CARE / HOMELESS Is pt being admited?: No Does the pt Need Aspirin: No Condition: Stable Additional Instructions: Please take your seizure medications as prescribed. Follow-up with your neurologist or primary care physician next available appointment. Return to the emergency department if any problems Prescriptions: Ketorolac [Toradol] 10 mg PO Q6H PRN #10 tab PRN Reason: Pain Referrals: ALEKS VALDOVINOS MD [Primary Care Provider] - 3-5 Days
[2021-07-02 08:29] VITALS: BP 130/78
== END 2021-07-02 07:35 | disposition home or self-care (01) ==
LOC: ED 22:57
DX: R56.9 Unspecified convulsions (principal); M54.6 Pain in thoracic spine; F17.200 Nicotine dependence, unspecified, uncomplicated; Z79.82 Long term (current) use of aspirin; Z79.899 Other long term (current) drug therapy
CPT/HCPCS: 36415; 80053; 80307; 81001; 85025; 96374; 96375; 99284; J1885; J1953; J7040; J7060; 96361

== ENCOUNTER 2021-09-06 13:34 | Emergency (ER) | payer SELFPAY ==
[2021-09-06] MEDS ORDERED: levETIRAcetam 1000 MG/NS 0.75% 1,000 MG/100 ML BAG IV ONE (14:01)
--- NOTE | 2021-09-06 14:04 | Emergency Department Report ---
ED Seizure HPI - General Chief Complaint: Seizure Stated Complaint: SEIZURE Time Seen by Provider: 09/06/21 14:01 Source: patient, EMS Mode of arrival: Stretcher Limitations: No Limitations - History of Present Illness Initial Comments: Patient is 41 years old female with history of seizure on Keppra. Patient is not compliant with her medication. Patient brought to the emergency room via EMS from home for evaluation after 1 episode of seizure that happened this morning. Patient daughter stated that her mother is noncompliant with her Keppra. She denies any fever or chills. No head injury. MD Complaint: seizure, loss of consciousness -: Sudden, This morning Description of Episode: loss of consciousness, tonic-clonic movement, bladder incontinence, post-event confusion Witnessed:: No Seizure History: known seizure disorder Place: home - Related Data Home Medications Medication Instructions Recorded Confirmed Last Taken Aspirin/Caffeine [Bc Pain Relief 2 each PO QDAY 04/30/21 04/30/21 04/29/21 Powder Packet] Previous Rx's Medication Instructions Recorded Last Taken Type Baclofen [Lioresal] 10 mg PO TID #30 tab 12/09/20 04/28/21 Rx levETIRAcetam [Keppra TAB] 500 mg PO BID #60 tablet 02/17/21 09/06/21 09:00 Rx HYDROcodone/APAP 5-325 [[place] 1 each PO Q6HR PRN #24 tablet 05/03/21 Unknown Rx 5/325] dexAMETHasone [Decadron] 4 mg PO DAILY #6 tab 05/03/21 Unknown Rx Ketorolac [Toradol] 10 mg PO Q6H PRN #10 tab 07/02/21 Unknown Rx Allergies Allergy/AdvReac Type Severity Reaction Status Date / Time No Known Allergies Allergy Verified 04/30/21 08:16 ED Review of Systems ROS: Stated complaint: SEIZURE Other details as noted in HPI Comment: All other systems reviewed and negative Constitutional: denies: chills, fever Respiratory: denies: cough, shortness of breath, SOB with exertion Cardiovascular: denies: chest pain, palpitations Gastrointestinal: denies: abdominal pain, nausea, vomiting, diarrhea Musculoskeletal: denies: back pain Neurological: denies: headache, weakness, numbness, paresthesias, confusion ED Past Medical Hx - Past Medical History Previous Medical History?: Yes Hx Seizures: Yes Hx HIV: No - Surgical History Past Surgical History?: No - Social History Smoking Status: Current Every Day Smoker Substance Use Type: None - Medications Home Medications: Home Medications Medication Instructions Recorded Confirmed Last Taken Type Baclofen [Lioresal] 10 mg PO TID #30 tab 12/09/20 04/30/21 04/28/21 Rx levETIRAcetam [Keppra TAB] 500 mg PO BID #60 tablet 02/17/21 04/30/21 09/06/21 09:00 Rx Aspirin/Caffeine [Bc Pain Relief 2 each PO QDAY 04/30/21 04/30/21 04/29/21 History Powder Packet] HYDROcodone/APAP 5-325 [[place] 1 each PO Q6HR PRN #24 tablet 05/03/21 Unknown Rx 5/325] dexAMETHasone [Decadron] 4 mg PO DAILY #6 tab 05/03/21 Unknown Rx Ketorolac [Toradol] 10 mg PO Q6H PRN #10 tab 07/02/21 Unknown Rx ED Physical Exam - General Limitations: No Limitations General appearance: alert, in no apparent distress - Head Head exam: Present: atraumatic, normocephalic, normal inspection - Eye Eye exam: Present: normal appearance - ENT ENT exam: Present: normal exam, normal orophraynx, mucous membranes moist - Neck Neck exam: Present: normal inspection, full ROM. Absent: tenderness, meningismus - Respiratory Respiratory exam: Present: normal lung sounds bilaterally - Cardiovascular Cardiovascular Exam: Present: regular rate, normal rhythm, normal heart sounds - GI/Abdominal GI/Abdominal exam: Present: soft, normal bowel sounds. Absent: distended, te nderness, guarding, rebound, rigid, organomegaly, mass, bruit, pulsatile mass, hernia - Extremities Exam Extremities exam: Present: normal inspection, full ROM, normal capillary refill. Absent: tenderness - Back Exam Back exam: Present: normal inspection, full ROM. Absent: CVA tenderness (R), CVA tenderness (L) - Neurological Exam Neurological exam: Present: alert, oriented X3, CN II-XII intact, normal gait, reflexes normal. Absent: motor sensory deficit - Psychiatric Psychiatric exam: Present: normal mood - Skin Skin exam: Present: warm, intact, normal color, abrasion (tongue) ED Course Vital Signs 09/06/21 18:01 Pulse Rate 80 Respiratory 18 Rate Blood Pressure 105/66 [Left] O2 Sat by Pulse 99 Oximetry ED Medical Decision Making - Lab Data Result diagrams: 09/06/21 14:46 09/06/21 14:46 - Medical Decision Making Patient is 41 years old female with history of seizure on Keppra. Patient is not compliant with her medication. Patient brought to the emergency room via EMS from home for evaluation after 1 episode of seizure that happened this morning. Patient daughter stated that her mother is noncompliant with her Keppra. She denies any fever or chills. No head injury. Patient received Keppra 1 g IV. Labs reviewed and is unremarkable except for mild leukocytosis which is most likely related to her seizure episode. Patient also found to be positive for methamphetamine. Patient counseled about her drug abuse. No seizure activity observed in the ER. Patient advised to follow-up with her neurologist in the next 2 to 3 days and to return to the ER if she develop any new symptoms. Critical care attestation.: If time is entered above; I have spent that time in minutes in the direct care of this critically ill patient, excluding procedure time. ED Disposition Clinical Impression: Seizure, Methamphetamine abuse Disposition: HOME / SELF CARE / HOMELESS Is pt being admited?: No Condition: Stable Instructions: Seizure, Adult, [id number], Amphetamines Use Disorder Referrals: PRIMARY CARE, [Primary Care Provider] - 3-5 Days
[2021-09-06 14:59] LABS: Basophils # (Auto) 0.1 K/mm3 (0.0-0.1); Basophils % (Auto) 0.4 % (0.0-1.8); Eosinophils % (Auto) 0.2 % (0.0-4.3); Hemoglobin 13.9 gm/dl (10.1-14.3); Lymphocytes # (Auto) 1.3 K/mm3 (1.2-5.4); Lymphocytes % (Auto) 10.7 % (13.4-35.0); Mean Corpuscular HGB Conc 32 % (30-34); Mean Corpuscular Volume 95 fl (79-97); Monocytes # (Auto) 0.4 K/mm3 (0.0-0.8); Monocytes % (Auto) 3.1 % (0.0-7.3); Platelet Count 258 K/mm3 (140-440); Red Blood Count 4.54 M/mm3 (3.65-5.03); Red Cell Distribution Width 15.2 % (13.2-15.2)
[2021-09-06 15:22] LABS: Alanine Aminotransferase 27 units/L (7-56); Albumin 4.5 g/dL (3.9-5); Blood Urea Nitrogen 4 mg/dL (7-17); Hemolysis Index 30
[2021-09-06 15:29] LABS: BUN/Creatinine Ratio 6; Bilirubin,Direct < 0.2 mg/dL (0-0.2)
[2021-09-06 17:14] LABS: Bilirubin,Urine NEG (Negative); Blood,Urine SM (Negative); Color,Urine Straw (Yellow); Hyaline Casts,Urine 2 /LPF; Mucus,Urine FEW /HPF; RBC,Urine < 1.0 /HPF (0.0-6.0); Urobilinogen,Urine < 2.0 mg/dL (<2.0); WBC,Urine < 1.0 /HPF (0.0-6.0)
[2021-09-06 17:17] LABS: Benzodiazepines Screen,Urine Negative; Cannabinoid Screen,Urine Negative; Cocaine Screen,Urine Negative; Methadone Screen,Urine Negative; Opiate Screen,Urine Negative
[2021-09-06] MEDS ORDERED: SODIUM CHLORIDE 0.9% 1000 ML 1,000 ML IV ONE (17:32)
[2021-09-06 17:54] LABS: Amphetamine Screen,Urine Positive
[2021-09-06 19:16] VITALS: BP 118/69
== END 2021-09-06 19:16 | disposition home or self-care (01) ==
LOC: ED 13:34
DX: R56.9 Unspecified convulsions (principal); F19.10 Other psychoactive substance abuse, uncomplicated; F17.200 Nicotine dependence, unspecified, uncomplicated; Z79.899 Other long term (current) drug therapy
CPT/HCPCS: 36415; 80048; 80076; 80307; 81001; 84703; 85025; 96361; 96374; 99284; J1953; J7030

== ENCOUNTER 2021-11-11 10:04 | Emergency (ER) | payer SELFPAY ==
[2021-11-11 10:14] VITALS: BP 180/104
[2021-11-11] MEDS ORDERED: KETOROLAC 30 MG/1 ML INJ IM ONE (11:39)
[2021-11-11] MEDS ORDERED: diazePAM 5 MG TAB PO ONE (11:39)
--- NOTE | 2021-11-11 11:44 | Emergency Department Report ---
ED Seizure HPI - General Chief Complaint: Seizure Stated Complaint: SEIZURE Time Seen by Provider: 11/11/21 11:15 Source: EMS Mode of arrival: Ambulatory Limitations: No Limitations - History of Present Illness Initial Comments: 41-year-old female with a history of seizure disorder presents to the emergency department after a witnessed seizure this morning. Patient does not remember that she was, but feels as if she had a seizure because she has a small tongue abrasion and headache and myalgias. Denies any other symptoms. Patient reports compliance with her Keppra, and does not know what brought on the seizure, but has not had a evaluation by a neurologist. Patient states that the seizures happen on and off without any known trigger. Denies any known alleviating or aggravating factors. Patient does not know if she took her Keppra, this morning, does not want any Keppra, now. - Related Data Home Medications Medication Instructions Recorded Confirmed Last Taken Aspirin/Caffeine [Bc Pain Relief 2 each PO QDAY 04/30/21 04/30/21 04/29/21 Powder Packet] Previous Rx's Medication Instructions Recorded Last Taken Type Baclofen [Lioresal] 10 mg PO TID #30 tab 12/09/20 04/28/21 Rx levETIRAcetam [Keppra TAB] 500 mg PO BID #60 tablet 02/17/21 09/06/21 09:00 Rx HYDROcodone/APAP 5-325 [[place] 1 each PO Q6HR PRN #24 tablet 05/03/21 Unknown Rx 5/325] dexAMETHasone [Decadron] 4 mg PO DAILY #6 tab 05/03/21 Unknown Rx Ketorolac [Toradol] 10 mg PO Q6H PRN #10 tab 07/02/21 Unknown Rx Ibuprofen [Motrin] 600 mg PO Q8H PRN #20 tablet 11/11/21 Unknown Rx levETIRAcetam [Keppra TAB] 500 mg PO BID #60 tablet 11/11/21 Unknown Rx Allergies Allergy/AdvReac Type Severity Reaction Status Date / Time No Known Allergies Allergy Verified 11/11/21 10:14 ED Review of Systems ROS: Stated complaint: SEIZURE Other details as noted in HPI Comment: All other systems reviewed and negative Constitutional: denies: chills, fever, weakness Eyes: denies: eye pain, eye discharge, vision change ENT: other (Tongue pain). denies: ear pain, throat pain Respiratory: no symptoms reported. denies: cough, shortness of breath, wheezing Cardiovascular: denies: chest pain, palpitations Endocrine: no symptoms reported Gastrointestinal: denies: abdominal pain, nausea, diarrhea Genitourinary: denies: urgency, dysuria, discharge Musculoskeletal: myalgia. denies: back pain, joint swelling, arthralgia Skin: denies: rash, lesions Neurological: headache, other (Witnessed seizure). denies: weakness, paresthesias Psychiatric: denies: anxiety, depression Hematological/Lymphatic: denies: easy bleeding, easy bruising ED Past Medical Hx - Past Medical History Previous Medical History?: Yes Hx Seizures: Yes - Social History Smoking Status: Current Every Day Smoker Substance Use Type: None - Medications Home Medications: Home Medications Medication Instructions Recorded Confirmed Last Taken Type Baclofen [Lioresal] 10 mg PO TID #30 tab 12/09/20 04/30/21 04/28/21 Rx levETIRAcetam [Keppra TAB] 500 mg PO BID #60 tablet 02/17/21 04/30/21 09/06/21 09:00 Rx Aspirin/Caffeine [Bc Pain Relief 2 each PO QDAY 04/30/21 04/30/21 04/29/21 History Powder Packet] HYDROcodone/APAP 5-325 [[place] 1 each PO Q6HR PRN #24 tablet 05/03/21 Unknown Rx 5/325] dexAMETHasone [Decadron] 4 mg PO DAILY #6 tab 05/03/21 Unknown Rx Ketorolac [Toradol] 10 mg PO Q6H PRN #10 tab 07/02/21 Unknown Rx Ibuprofen [Motrin] 600 mg PO Q8H PRN #20 tablet 11/11/21 Unknown Rx levETIRAcetam [Keppra TAB] 500 mg PO BID #60 tablet 11/11/21 Unknown Rx ED Physical Exam - General Limitations: No Limitations General appearance: alert, in no apparent distress - Head Head exam: Present: atraumatic, normocephalic - Eye Eye exam: Present: normal appearance - ENT ENT exam: Present: mucous membranes moist, other (Abrasions to the left side of the tongue consistent with tongue biting after seizure) - Neck Neck exam: Present: normal inspection - Respiratory Respiratory exam: Present: normal lung sounds bilaterally. Absent: respiratory distress, wheezes - Cardiovascular Cardiovascular Exam: Present: regular rate, normal rhythm. Absent: systolic murmur, diastolic murmur, rubs, gallop - GI/Abdominal GI/Abdominal exam: Present: soft, normal bowel sounds. Absent: distended, tende rness, guarding - Extremities Exam Extremities exam: Present: normal inspection - Back Exam Back exam: Present: normal inspection - Neurological Exam Neurological exam: Present: alert, oriented X3, CN II-XII intact, normal gait, motor sensory deficit - Psychiatric Psychiatric exam: Present: normal affect, normal mood - Skin Skin exam: Present: warm, dry, intact, normal color. Absent: rash ED Course Vital Signs 11/11/21 10:12 Temperature 98.4 F Pulse Rate 90 Respiratory 16 Rate Blood Pressure 180/104 [Left] O2 Sat by Pulse 96 Oximetry - Reevaluation(s) Reevaluation #1: 11/11/21 12:39 Patient did not have another seizure while in the emergency department, and will be discharged home, now. Critical care attestation.: If time is entered above; I have spent that time in minutes in the direct care of this critically ill patient, excluding procedure time. ED Disposition Clinical Impression: Seizure, Tongue biting, Myalgia Disposition: 01 HOME / SELF CARE / HOMELESS Is pt being admited?: No Condition: Stable Instructions: Musculoskeletal Pain, Seizure, Adult Prescriptions: levETIRAcetam [Keppra TAB] 500 mg PO BID #60 tablet Ibuprofen [Motrin] 600 mg PO Q8H PRN #20 tablet PRN Reason: Pain Referrals: PRIMARY CAREMD [Primary Care Provider] - 3-5 Days BAIRON KITCHEN MD [Staff Physician] - 3-5 Days Time of Disposition: 12:41
== END 2021-11-11 12:59 | disposition home or self-care (01) ==
LOC: ED 10:04
DX: G40.909 Epilepsy, unspecified, not intractable, without status epilepticus (principal); S01.552A Open bite of oral cavity, initial encounter; M79.10 Myalgia, unspecified site; F17.200 Nicotine dependence, unspecified, uncomplicated
CPT/HCPCS: 96372; 99283; J1885

== ENCOUNTER 2021-12-10 13:21 | Inpatient (IN) | payer SELFPAY ==
[2021-12-10] MEDS: DOPamine 800 MG/D5W 250ML 800 MG/250 ML BAG IV ONE ×2 (13:30→22:47)
--- NOTE | 2021-12-10 13:44 | Emergency Department Report ---
HPI - General Time Seen by Provider: 12/10/21 13:31 - HPI HPI: Room 2 The patient is a 41-year-old female presenting status post cardiac arrest. 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 Approximately 10 minutes later staff went to check on the patient and found her unresponsive on the ground outside. EMS was called and arrived on scene at 12: 55 to find the patient in PEA. ACLS protocols were initiated and patient was intubated using a Kristian airway. Per EMS they achieved ROSC 3 times the last which just prior to arrival to the ED. Patient was defibrillated once, administered 4 rounds of epi, 1 amp of sodium bicarb, 1 calcium and Narcan 2 mg prior to arrival. Upon arrival to the ED the Kristian airway was removed and the patient was intubated by myself using the glidescope, patient was found in asystole and ACLS protocols were continued with eventual ROSC ED Past Medical Hx - Past Medical History Hx Seizures: Yes - Surgical History Past Surgical History?: No - Family History Family history: no significant - Social History Smoking Status: Unknown if ever smoked Substance Use Type: None - Medications Home Medications: Home Medications Medication Instructions Recorded Confirmed Last Taken Type Baclofen [Lioresal] 10 mg PO TID #30 tab 12/09/20 04/30/21 04/28/21 Rx levETIRAcetam [Keppra TAB] 500 mg PO BID #60 tablet 02/17/21 04/30/21 09/06/21 09:00 Rx Aspirin/Caffeine [Bc Pain Relief 2 each PO QDAY 04/30/21 04/30/21 04/29/21 History Powder Packet] HYDROcodone/APAP 5-325 [Noonan 1 each PO Q6HR PRN #24 tablet 05/03/21 Unknown Rx 5/325] dexAMETHasone [Decadron] 4 mg PO DAILY #6 tab 05/03/21 Unknown Rx Ketorolac [Toradol] 10 mg PO Q6H PRN #10 tab 07/02/21 Unknown Rx Ibuprofen [Motrin] 600 mg PO Q8H PRN #20 tablet 11/11/21 Unknown Rx levETIRAcetam [Keppra TAB] 500 mg PO BID #60 tablet 11/11/21 Unknown Rx ED Review of Systems ROS: Stated complaint: CARDIAC ARREST Other details as noted in HPI Comment: Unobtainable due to pts medical conditions Physical Exam - Physical Exam Physical Exam: GENERAL: The patient is well-developed well-nourished female lying on stretcher being bagged via Kristian airway HEENT: Normocephalic. Atraumatic. NECK: Supple. Trachea midline CHEST/LUNGS: No spontaneous respirations. Breath sounds equally bilaterally with bagging after intubation by myself HEART/CARDIOVASCULAR: No heart sounds. Asystole on monitor ABDOMEN: Abdomen is soft, nontender. Patient has normal bowel sounds. There is no abdominal distention. SKIN: There is no rash. There is no edema. There is no diaphoresis. NEURO: GCS 3 T MUSCULOSKELETAL: There is no evidence of acute injury. - Central Line Placement Right Femoral Consent Obtained: emergent situation Time Out Performed: No Patient Placed on Monitor/Pulse Ox: Yes MD Prep: mask, gown, gloves Central Line Prep: Chlorhexidine scrub Local Anesthesia Used: Lidocaine 1% Amount of Anesthesia Used (mls): 5 Ultrasound Used for Placement: No Central Line Lumen Inserted: triple Reason for Insertion: High Alert Medication Bloods Obtained for Lab: No Central Line Position: good blood return, all ports aspirated, flus Dressing Applied: Tegaderm Patient Tolerated Procedure: well, no complications Complications: none - Intubation Time Out Performed: No Sedative: none Laryngoscope: fiberoptic video scope Size: 3 Assist Device Used: fiberoptic device ET Tube Size: 7 Tube Secured Depth (cm): 21 Tube Secured Location: lips Tube Placement Confirmation: visualized tube passing t, equal breath sounds bilat, no breath sounds over epi, confirmation by capnometr Patient Tolerated Procedure: no complications Intubation Complications: none ED Medical Decision Making - Lab Data Result diagrams: 12/10/21 13:46 12/10/21 13:46 Laboratory Tests 12/10/21 12/10/21 12/10/21 13:27 13:46 13:46 WBC 13.0 H RBC 4.03 Hgb 12.3 Hct 42.4 MCV 105 H MCH 31 MCHC 29 L RDW 18.3 H Plt Count 154 Lymph % (Auto) Investment Advisor Starke % (Auto) Investment Advisor Eos % (Auto) Investment Advisor Baso % (Auto) Investment Advisor Lymph # (Auto) Investment Advisor Starke # (Auto) Investment Advisor Eos # (Auto) Investment Advisor Baso # (Auto) Investment Advisor Add Manual Diff Complete Total Counted 100 Seg Neutrophils % Investment Advisor Seg Neuts % (Manual) 71.0 H Band Neutrophils % 0 Lymphocytes % (Manual) 25.0 Reactive Lymphs % (Man) 0 Monocytes % (Manual) 3.0 Eosinophils % (Manual) 0 Basophils % (Manual) 0 Metamyelocytes % 0 Myelocytes % 1.0 Promyelocytes % 0 Blast Cells % 0 Nucleated RBC % Not Reportable Seg Neutrophils # Investment Advisor Seg Neutrophils # Man 9.2 H Band Neutrophils # 0.0 Lymphocytes # (Manual) 3.3 Abs React Lymphs (Man) 0.0 Monocytes # (Manual) 0.4 Eosinophils # (Manual) 0.0 Basophils # (Manual) 0.0 Metamyelocytes # 0.0 Myelocytes # 0.1 Promyelocytes # 0.0 Blast Cells # 0.0 WBC Morphology Not Reportable Hypersegmented Neuts Not Reportable Hyposegmented Neuts Not Reportable Hypogranular Neuts Not Reportable Smudge Cells Not Reportable Toxic Granulation Not Reportable Toxic Vacuolation Not Reportable Dohle Bodies Not Reportable Pelger-Huet Anomaly Not Reportable Renny Rods Not Reportable Platelet Estimate Consistent w auto Clumped Platelets Not Reportable Plt Clumps, EDTA Not Reportable Large Platelets Not Reportable Giant Platelets Not Reportable Platelet Satelliting Not Reportable Plt Morphology Comment Not Reportable RBC Morphology Normal Dimorphic RBCs Not Reportable Polychromasia Not Reportable Hypochromasia Not Reportable Poikilocytosis Not Reportable Anisocytosis Not Reportable Microcytosis Not Reportable Macrocytosis Not Reportable Spherocytes Not Reportable Pappenheimer Bodies Not Reportable Sickle Cells Not Reportable Target Cells Not Reportable Tear Drop Cells Not Reportable Ovalocytes Not Reportable Helmet Cells Not Reportable Davison-Sholes Bodies Not Reportable Bradshaw Rings Not Reportable Melvin Cells Not Reportable Bite Cells Not Reportable Crenated Cell Not Reportable Elliptocytes Not Reportable Acanthocytes (Spur) Not Reportable Rouleaux Not Reportable Hemoglobin C Crystals Not Reportable Schistocytes Not Reportable Malaria parasites Not Reportable Pedro Pbalo Bodies Not Reportable Hem Pathologist Commnt No ABG pH ABG pCO2 ABG pO2 ABG HCO3 ABG O2 Saturation ABG O2 Content ABG Base Excess ABG Hemoglobin ABG Carboxyhemoglobin ABG Methemoglobin VBG pH Oxyhemoglobin FiO2 Sodium 140 Potassium 3.4 L Chloride 92.6 L Carbon Dioxide 15 L Anion Gap 36 BUN 6 L Creatinine 1.0 Estimated GFR > 60 BUN/Creatinine Ratio 6 Glucose 349 H POC Glucose 354 H Lactic Acid Calcium 11.2 H Magnesium 2.30 Total Bilirubin 0.20 AST 76 H ALT 36 Alkaline Phosphatase 110 Total Creatine Kinase 170 H CK-MB (CK-2) 1.4 CK-MB (CK-2) Rel Index 0.8 Troponin T < 0.010 Total Protein 5.8 L Albumin 3.6 L Albumin/Globulin Ratio 1.6 TSH Free T4 HCG, Qual Urine Color Urine Turbidity Specific [place] (Man) Ur Protein (Man) Ur Ketones (Man) Ur Nitrite (Man) Ur Reducing Substances Urine Bilirubin (Man) Urine Ictotest Leukocyte Esterase (Man) Urine WBC (Auto) Urine RBC (Auto) U Epithel Cells (Auto) Urine Bacteria (Auto) Urine RBC (Manual) Urine Mucus Urine Opiates Screen Urine Methadone Screen Ur Barbiturates Screen Ur Phencyclidine Scrn Ur Amphetamines Screen U Benzodiazepines Scrn Urine Cocaine Screen U Marijuana (THC) Screen Drugs of Abuse Note Plasma/Serum Alcohol 12/10/21 12/10/21 12/10/21 13:46 13:46 14:12 WBC RBC Hgb Hct MCV MCH MCHC RDW Plt Count Lymph % (Auto) Starke % (Auto) Eos % (Auto) Baso % (Auto) Lymph # (Auto) Starke # (Auto) Eos # (Auto) Baso # (Auto) Add Manual Diff Total Counted Seg Neutrophils % Seg Neuts % (Manual) Band Neutrophils % Lymphocytes % (Manual) Reactive Lymphs % (Man) Monocytes % (Manual) Eosinophils % (Manual) Basophils % (Manual) Metamyelocytes % Myelocytes % Promyelocytes % Blast Cells % Nucleated RBC % Seg Neutrophils # Seg Neutrophils # Man Band Neutrophils # Lymphocytes # (Manual) Abs React Lymphs (Man) Monocytes # (Manual) Eosinophils # (Manual) Basophils # (Manual) Metamyelocytes # Myelocytes # Promyelocytes # Blast Cells # WBC Morphology Hypersegmented Neuts Hyposegmented Neuts Hypogranular Neuts Smudge Cells Toxic Granulation Toxic Vacuolation Dohle Bodies Pelger-Huet Anomaly Renny Rods Platelet Estimate Clumped Platelets Plt Clumps, EDTA Large Platelets Giant Platelets Platelet Satelliting Plt Morphology Comment RBC Morphology Dimorphic RBCs Polychromasia Hypochromasia Poikilocytosis Anisocytosis Microcytosis Macrocytosis Spherocytes Pappenheimer Bodies Sickle Cells Target Cells Tear Drop Cells Ovalocytes Helmet Cells Davison-Sholes Bodies Bradshaw Rings Grand[place] Cells Bite Cells Crenated Cell Elliptocytes Acanthocytes (Spur) Rouleaux Hemoglobin C Crystals Schistocytes Malaria parasites Pedro Pablo Bodies Hem Pathologist Commnt ABG pH ABG pCO2 ABG pO2 ABG HCO3 ABG O2 Saturation ABG O2 Content ABG Base Excess ABG Hemoglobin ABG Carboxyhemoglobin ABG Methemoglobin VBG pH Oxyhemoglobin FiO2 Sodium Potassium Chloride Carbon Dioxide Anion Gap BUN Creatinine Estimated GFR BUN/Creatinine Ratio Glucose POC Glucose Lactic Acid Calcium Magnesium Total Bilirubin AST ALT Alkaline Phosphatase Total Creatine Kinase CK-MB (CK-2) CK-MB (CK-2) Rel Index Troponin T Total Protein Albumin Albumin/Globulin Ratio TSH 3.160 Free T4 0.70 L HCG, Qual Negative Urine Color Urine Turbidity Specific [place] (Man) Ur Protein (Man) Ur Ketones (Man) Ur Nitrite (Man) Ur Reducing Substances Urine Bilirubin (Man) Urine Ictotest Leukocyte Esterase (Man) Urine WBC (Auto) Urine RBC (Auto) U Epithel Cells (Auto) Urine Bacteria (Auto) Urine RBC (Manual) Urine Mucus Urine Opiates Screen Urine Methadone Screen Ur Barbiturates Screen Ur Phencyclidine Scrn Ur Amphetamines Screen U Benzodiazepines Scrn Urine Cocaine Screen U Marijuana (THC) Screen Drugs of Abuse Note Plasma/Serum Alcohol < 0.01 12/10/21 12/10/21 12/10/21 14:12 14:12 14:21 WBC RBC Hgb Hct MCV MCH MCHC RDW Plt Count Lymph % (Auto) Starke % (Auto) Eos % (Auto) Baso % (Auto) Lymph # (Auto) Starke # (Auto) Eos # (Auto) Baso # (Auto) Add Manual Diff Total Counted Seg Neutrophils % Seg Neuts % (Manual) Band Neutrophils % Lymphocytes % (Manual) Reactive Lymphs % (Man) Monocytes % (Manual) Eosinophils % (Manual) Basophils % (Manual) Metamyelocytes % Myelocytes % Promyelocytes % Blast Cells % Nucleated RBC % Seg Neutrophils # Seg Neutrophils # Man Band Neutrophils # Lymphocytes # (Manual) Abs React Lymphs (Man) Monocytes # (Manual) Eosinophils # (Manual) Basophils # (Manual) Metamyelocytes # Myelocytes # Promyelocytes # Blast Cells # WBC Morphology Hypersegmented Neuts Hyposegmented Neuts Hypogranular Neuts Smudge Cells Toxic Granulation Toxic Vacuolation Dohle Bodies Pelger-Huet Anomaly Renny Rods Platelet Estimate Clumped Platelets Plt Clumps, EDTA Large Platelets Giant Platelets Platelet Satelliting Plt Morphology Comment RBC Morphology Dimorphic RBCs Polychromasia Hypochromasia Poikilocytosis Anisocytosis Microcytosis Macrocytosis Spherocytes Pappenheimer Bodies Sickle Cells Target Cells Tear Drop Cells Ovalocytes Helmet Cells Davison-Sholes Bodies Bradshaw Rings Grandin Cells Bite Cells Crenated Cell Elliptocytes Acanthocytes (Spur) Rouleaux Hemoglobin C Crystals Schistocytes Malaria parasites Pedro Pablo Bodies Hem Pathologist Commnt ABG pH ABG pCO2 ABG pO2 ABG HCO3 ABG O2 Saturation ABG O2 Content ABG Base Excess ABG Hemoglobin ABG Carboxyhemoglobin ABG Methemoglobin VBG pH 6.888 L* Oxyhemoglobin FiO2 Sodium Potassium Chloride Carbon Dioxide Anion Gap BUN Creatinine Estimated GFR BUN/Creatinine Ratio Glucose POC Glucose Lactic Acid 17.70 H* Calcium Magnesium Total Bilirubin AST ALT Alkaline Phosphatase Total Creatine Kinase CK-MB (CK-2) CK-MB (CK-2) Rel Index Troponin T Total Protein Albumin Albumin/Globulin Ratio TSH Free T4 HCG, Qual Urine Color Yellow Urine Turbidity Slightly cloudy Specific [place] (Man) 1.010 Ur Protein (Man) Negative Ur Ketones (Man) Negative Ur Nitrite (Man) Negative Ur Reducing Substances Not Reportable Urine Bilirubin (Man) Negative Urine Ictotest Not Reportable Leukocyte Esterase (Man) Negative Urine WBC (Auto) 125.0 H Urine RBC (Auto) 14.0 U Epithel Cells (Auto) 7.0 Urine Bacteria (Auto) 2+ Urine RBC (Manual) 2+ Urine Mucus Few Urine Opiates Screen Urine Methadone Screen Ur Barbiturates Screen Ur Phencyclidine Scrn Ur Amphetamines Screen U Benzodiazepines Scrn Urine Cocaine Screen U Marijuana (THC) Screen Drugs of Abuse Note Plasma/Serum Alcohol 12/10/21 12/10/21 12/10/21 14:21 14:40 15:31 WBC RBC Hgb Hct MCV MCH MCHC RDW Plt Count Lymph % (Auto) Starke % (Auto) Eos % (Auto) Baso % (Auto) Lymph # (Auto) Starke # (Auto) Eos # (Auto) Baso # (Auto) Add Manual Diff Total Counted Seg Neutrophils % Seg Neuts % (Manual) Band Neutrophils % Lymphocytes % (Manual) Reactive Lymphs % (Man) Monocytes % (Manual) Eosinophils % (Manual) Basophils % (Manual) Metamyelocytes % Myelocytes % Promyelocytes % Blast Cells % Nucleated RBC % Seg Neutrophils # Seg Neutrophils # Man Band Neutrophils # Lymphocytes # (Manual) Abs React Lymphs (Man) Monocytes # (Manual) Eosinophils # (Manual) Basophils # (Manual) Metamyelocytes # Myelocytes # Promyelocytes # Blast Cells # WBC Morphology Hypersegmented Neuts Hyposegmented Neuts Hypogranular Neuts Smudge Cells Toxic Granulation Toxic Vacuolation Dohle Bodies Pelger-Huet Anomaly Renny Rods Platelet Estimate Clumped Platelets Plt Clumps, EDTA Large Platelets Giant Platelets Platelet Satelliting Plt Morphology Comment RBC Morphology Dimorphic RBCs Polychromasia Hypochromasia Poikilocytosis Anisocytosis Microcytosis Macrocytosis Spherocytes Pappenheimer Bodies Sickle Cells Target Cells Tear Drop Cells Ovalocytes Helmet Cells Davison-Sholes Bodies Bradshaw Rings Melvin Cells Bite Cells Crenated Cell Elliptocytes Acanthocytes (Spur) Rouleaux Hemoglobin C Crystals Schistocytes Malaria parasites Pedro Pablo Bodies Hem Pathologist Commnt ABG pH 6.969 L* ABG pCO2 73.3 ABG pO2 163.5 H ABG HCO3 16.5 L ABG O2 Saturation 98.3 ABG O2 Content 18.1 ABG Base Excess -16.2 L ABG Hemoglobin 13.3 ABG Carboxyhemoglobin 2.8 ABG Methemoglobin 0.7 VBG pH Oxyhemoglobin 94.9 L FiO2 100 Sodium Potassium Chloride Carbon Dioxide Anion Gap BUN Creatinine Estimated GFR BUN/Creatinine Ratio Glucose POC Glucose Lactic Acid 11.40 H* Calcium Magnesium Total Bilirubin AST ALT Alkaline Phosphatase Total Creatine Kinase CK-MB (CK-2) CK-MB (CK-2) Rel Index Troponin T Total Protein Albumin Albumin/Globulin Ratio TSH Free T4 HCG, Qual Urine Color Urine Turbidity Specific [place] (Man) Ur Protein (Man) Ur Ketones (Man) Ur Nitrite (Man) Ur Reducing Substances Urine Bilirubin (Man) Urine Ictotest Leukocyte Esterase (Man) Urine WBC (Auto) Urine RBC (Auto) U Epithel Cells (Auto) Urine Bacteria (Auto) Urine RBC (Manual) Urine Mucus Urine Opiates Screen Negative Urine Methadone Screen Negative Ur Barbiturates Screen Negative Ur Phencyclidine Scrn Negative Ur Amphetamines Screen Negative U Benzodiazepines Scrn Negative Urine Cocaine Screen Negative U Marijuana (THC) Screen Negative Drugs of Abuse Note Disclamer Plasma/Serum Alcohol 12/10/21 16:23 WBC RBC Hgb Hct MCV MCH MCHC RDW Plt Count Lymph % (Auto) Starke % (Auto) Eos % (Auto) Baso % (Auto) Lymph # (Auto) Starke # (Auto) Eos # (Auto) Baso # (Auto) Add Manual Diff Total Counted Seg Neutrophils % Seg Neuts % (Manual) Band Neutrophils % Lymphocytes % (Manual) Reactive Lymphs % (Man) Monocytes % (Manual) Eosinophils % (Manual) Basophils % (Manual) Metamyelocytes % Myelocytes % Promyelocytes % Blast Cells % Nucleated RBC % Seg Neutrophils # Seg Neutrophils # Man Band Neutrophils # Lymphocytes # (Manual) Abs React Lymphs (Man) Monocytes # (Manual) Eosinophils # (Manual) Basophils # (Manual) Metamyelocytes # Myelocytes # Promyelocytes # Blast Cells # WBC Morphology Hypersegmented Neuts Hyposegmented Neuts Hypogranular Neuts Smudge Cells Toxic Granulation Toxic Vacuolation Dohle Bodies Pelger-Huet Anomaly Renny Rods Platelet Estimate Clumped Platelets Plt Clumps, EDTA Large Platelets Giant Platelets Platelet Satelliting Plt Morphology Comment RBC Morphology Dimorphic RBCs Polychromasia Hypochromasia Poikilocytosis Anisocytosis Microcytosis Macrocytosis Spherocytes Pappenheimer Bodies Sickle Cells Target Cells Tear Drop Cells Ovalocytes Helmet Cells Davison-Sholes Bodies Bradshaw Rings Melvin Cells Bite Cells Crenated Cell Elliptocytes Acanthocytes (Spur) Rouleaux Hemoglobin C Crystals Schistocytes Malaria parasites Pedro Pablo Bodies Hem Pathologist Commnt ABG pH ABG pCO2 ABG pO2 ABG HCO3 ABG O2 Saturation ABG O2 Content ABG Base Excess ABG Hemoglobin ABG Carboxyhemoglobin ABG Methemoglobin VBG pH Oxyhemoglobin FiO2 Sodium Potassium Chloride Carbon Dioxide Anion Gap BUN Creatinine Estimated GFR BUN/Creatinine Ratio Glucose POC Glucose Lactic Acid 10.30 H* Calcium Magnesium Total Bilirubin AST ALT Alkaline Phosphatase Total Creatine Kinase CK-MB (CK-2) CK-MB (CK-2) Rel Index Troponin T Total Protein Albumin Albumin/Globulin Ratio TSH Free T4 HCG, Qual Urine Color Urine Turbidity Specific [place] (Man) Ur Protein (Man) Ur Ketones (Man) Ur Nitrite (Man) Ur Reducing Substances Urine Bilirubin (Man) Urine Ictotest Leukocyte Esterase (Man) Urine WBC (Auto) Urine RBC (Auto) U Epithel Cells (Auto) Urine Bacteria (Auto) Urine RBC (Manual) Urine Mucus Urine Opiates Screen Urine Methadone Screen Ur Barbiturates Screen Ur Phencyclidine Scrn Ur Amphetamines Screen U Benzodiazepines Scrn Urine Cocaine Screen U Marijuana (THC) Screen Drugs of Abuse Note Plasma/Serum Alcohol - EKG Data -: EKG Interpreted by Me EKG shows normal: sinus rhythm Rate: normal - EKG Data When compared to previous EKG there are: previous EKG unavailable Interpretation: nonspecific ST-T wave genevieve, subendocardial ischemia - Radiology Data Radiology results: report reviewed (CT head, chest x-ray), image reviewed (CT head, CT cervical spine, chest x-ray) interpreted by me: Chest x-ray-no definite focal infiltrates, no pneumothorax. ET tube in appr opriate position [facility] [address] [place] [address] Cat Scan Report Signed Patient: LUKASJuly MR#: [id number] 66 : 1980 Acct:[id number] Age/Sex: 41 / F ADM Date: 12/10/21 Loc: ED Attending Dr: Ordering Physician: VEROINCA EDWARDS MD Date of Service: 12/10/21 Procedure(s): CT head/brain wo con Accession Number(s): [id number] cc: VERONICA EDWARDS MD CT HEAD WITHOUT CONTRAST INDICATION / CLINICAL INFORMATION: Found down/cardiac arrest. TECHNIQUE: All CT scans at this location are performed using CT dose reduction for ALARA by means of automated exposure control. COMPARISON: Head CT 02/17/2021 FINDINGS: HEMORRHAGE: No evidence of intracranial hemorrhage or extra-axial fluid collection. Increased attenuation in the interhemispheric fissure, sylvian cisterns and sylvian fissures represent normal vascular structures accentuated by surrounding diffusely decreased brain parenchymal attenuation. EXTRA-AXIAL SPACES: There is effacement of cortical sulci over both cerebral hemispheres. In addition the basilar cisterns are effaced. There is partial effacement of the superior cerebellar cistern in comparison to previous study. Prepontine cistern is effaced. The suprasellar cistern is largely effaced in comparison to previous study. This may indicate presence of bilateral uncal herniation. These findings represent a manifestation of mass effect secondary to diffuse brain edema. VENTRICULAR SYSTEM: The third and lateral ventricles are slitlike, decreased in size compared to baseline study 02/17/2021. This is a manifestation of diffuse cerebral edema. CEREBRAL PARENCHYMA: Complete absence of new-white distinction is noted. Brain parenchyma is diffusely decreased in attenuation. Findings suggest the presence of severe global anoxic injury. MIDLINE SHIFT OR HERNIATION: There is no midline shift. Mass effect secondary to diffuse cerebral edema is bilaterally symmetrical. CEREBELLUM / BRAINSTEM: As noted above there is effacement of the prepontine cistern, quadrigeminal plate cistern and partial effacement of the superior cerebellar cistern. Loss of new-white distinction is noted in both cerebellar hemispheres. Diffusely decreased brain parenchymal attenuation is seen within the mesencephalon and yumiko. MIDLINE STRUCTURES:No abnormalities of the pituitary gland or pineal region are identified. INTRACRANIAL VESSELS:No abnormalities are identified on this noncontrast head CT. ORBITS: visualized portions of the orbits have an unremarkable appearance. SOFT TISSUES of HEAD: No significant abnormality. CALVARIUM: Evaluation of bone windows reveals no abnormalities. PARANASAL SINUSES / MASTOID AIR CELLS: Visualized portions of the paranasal sinuses are free from inflammatory mucosal disease. Mastoid air cells are normally pneumatized. IMPRESSION: 1. Loss of new-white differentiation and diffuse mass effect with effacement of cortical sulci and basilar cisterns as described in detail above. These findings indicate the presence of severe global anoxic injury involving both cerebral hemispheres and cerebellar hemispheres.. CRITICAL RESULT: Time of Discovery (TRAILER TRUCK DRIVER/CDT): 1640 Central standard time Time of Communication (TRAILER TRUCK DRIVER/CDT): 1648 Central standard time Licensed Practitioner Receiving Report: Dr. Edwards Read-Back Performed: Not applicable. Signer Name: Sarath Boothe MD Signed: 12/10/2021 5:55 PM Workstation Name: [id number] Transcribed By: Dictated By: Sarath Boothe MD Electronically Authenticated By: Sarath Boothe MD Signed Date/Time: 12/10/21 1755 DD/ 174 TD/TT: [facility] [address] [place] [address] XRay Report Signed Patient: LUKASJuly MR#: [id number] 66 : 1980 Acct:[id number] Age/Sex: 41 / F ADM Date: 12/10/21 Loc: ED Attending Dr: Ordering Physician: VERONICA EDWARDS MD Date of Service: 12/10/21 Procedure(s): XR chest 1V ap Accession Number(s): [id number] cc: VERONICA EDWARDS MD Fluoro Time In Minutes: CHEST 1 VIEW 12/10/2021 1:50 PM INDICATION / CLINICAL INFORMATION: Cardiac arrest, status post intubated. COMPARISON: None available. FINDINGS: SUPPORT DEVICES: Endotracheal tube is in adequate position terminating 3.1 cm superior to the mackenzie. Nasogastric tube terminates in the fundus of the stomach in adequate position. HEART / MEDIASTINUM: No significant abnormality. LUNGS / PLEURA: There is poor inspiratory effort. No significant pulmonary or pleural abnormality. No pneumothorax. ADDITIONAL FINDINGS: No significant additional findings. IMPRESSION: 1. No acute findings. Adequate placement of lines and tubes. Signer Name: Brando Plummer Jr, MD Signed: 12/10/2021 2:54 PM Workstation Name: [id number] Transcribed By: TTR Dictated By: BRANDO PLUMMER JR, MD Electronically Authenticated By: BRANDO PLUMMER JR, MD Signed Date/Time: 12/10/21 1454 DD/ 1453 TD/TT: - Differential Diagnosis Cardiac arrest Critical care attestation.: If time is entered above; I have spent that time in minutes in the direct care of this critically ill patient, excluding procedure time. ED Disposition Clinical Impression: Cardiac arrest Disposition: ADMITTED INPATIENT Is pt being admited?: Yes Does the pt Need Aspirin: No Condition: Serious Time of Disposition: 18:03 (Care transferred to hospitalist (Dr. Hair))
[2021-12-10] MEDS ORDERED: SODIUM CHLORIDE 0.9% 1000 ML 1,000 ML ONE (14:02)
[2021-12-10] MEDS ORDERED: SODIUM BICARB 8.4% 50 MEQ/50 ML SYRINGE IV ONE ×2 (14:50→23:35)
[2021-12-10 14:55] LABS: Alanine Aminotransferase 36 units/L (7-56); Albumin 3.6 g/dL (3.9-5); BUN/Creatinine Ratio 6; Blood Urea Nitrogen 6 mg/dL (7-17); Calcium 11.2 mg/dL (8.4-10.2); Creatine Kinase MB 1.4 ng/mL (0.0-4.0); Hemolysis Index 71
--- NOTE | 2021-12-10 14:58 | XRay Report ---
CHEST 1 VIEW 12/10/2021 1:50 PM INDICATION / CLINICAL INFORMATION: Cardiac arrest, status post intubated. COMPARISON: None available. FINDINGS: SUPPORT DEVICES: Endotracheal tube is in adequate position terminating 3.1 cm superior to the mackenzie. Nasogastric tube terminates in the fundus of the stomach in adequate position. HEART / MEDIASTINUM: No significant abnormality. LUNGS / PLEURA: There is poor inspiratory effort. No significant pulmonary or pleural abnormality. No pneumothorax. ADDITIONAL FINDINGS: No significant additional findings. IMPRESSION: 1. No acute findings. Adequate placement of lines and tubes. Signer Name: Brando Plummer Jr, MD Signed: 12/10/2021 2:54 PM Workstation Name: [id number]
[2021-12-10 15:00] LABS: ABG Base Excess -16.2 mmol/L (-2.0-3.0); ABG HCO3 16.5 mmol/L (20.0-26.0); ABG Methemoglobin 0.7 % (0.0-1.5); ABG Oxygen Saturation 98.3 % (95.0-99.0); ABG PCO2 73.3 mm Hg; ABG PO2 163.5 mm Hg (80.0-90.0)
[2021-12-10 15:05] LABS: Amphetamine Screen,Urine Negative; Bacteria,Urine 2+ /HPF (Negative); Benzodiazepines Screen,Urine Negative; Cannabinoid Screen,Urine Negative; Cocaine Screen,Urine Negative; Methadone Screen,Urine Negative; Mucus,Urine FEW /HPF; Opiate Screen,Urine Negative
[2021-12-10 15:06] LABS: ABG PH 6.969 pH Units (7.350-7.450)
[2021-12-10 15:18] LABS: Free T4 (Free Thyroxine) 0.7 ng/dL (0.76-1.46)
[2021-12-10 15:37] LABS: Color,Urine Yellow (Yellow)
[2021-12-10 15:48] LABS: Mean Corpuscular HGB Conc 29 % (30-34); Mean Corpuscular Volume 105 fl (79-97); Platelet Count 154 K/mm3 (140-440); Red Blood Count 4.03 M/mm3 (3.65-5.03); Red Cell Distribution Width 18.3 % (13.2-15.2)
[2021-12-10 15:49] LABS: Hematocrit 42.4 % (30.3-42.9); Hemoglobin 12.3 gm/dl (10.1-14.3)
[2021-12-10 17:46] LABS: Basophils % (Manual) 0 % (0.0-1.8); Eosinophils % (Manual) 0 % (0.0-4.3); Myelocytes # (Manual) 0.1 K/mm3; Platelet Estimate Consistent w Auto; RBC Morphology Normal; Total Cells Counted 100
--- NOTE | 2021-12-10 18:00 | Cat Scan Report ---
CT HEAD WITHOUT CONTRAST INDICATION / CLINICAL INFORMATION: Found down/cardiac arrest. TECHNIQUE: All CT scans at this location are performed using CT dose reduction for ALARA by means of automated e xposure control. COMPARISON: Head CT 02/17/2021 FINDINGS: HEMORRHAGE: No evidence of intracranial hemorrhage or extra-axial fluid collection. Increased attenua tion in the interhemispheric fissure, sylvian cisterns and sylvian fissures represent normal vascular structures accentuated by surrounding diffusely decreased brain parenchymal attenuation. EXTRA-AXIAL SPACES: There is effacement of cortical sulci over both cerebral hemispheres. In addition the basilar cisterns are effaced. There is partial effacement of the superior cerebellar cistern in comparison to previous study. Prepontine cistern is effaced. The suprasellar cistern is largely effac ed in comparison to previous study. This may indicate presence of bilateral uncal herniation. These f indings represent a manifestation of mass effect secondary to diffuse brain edema. VENTRICULAR SYSTEM: The third and lateral ventricles are slitlike, decreased in size compared to base line study 02/17/2021. This is a manifestation of diffuse cerebral edema. CEREBRAL PARENCHYMA: Complete absence of new-white distinction is noted. Brain parenchyma is diffuse ly decreased in attenuation. Findings suggest the presence of severe global anoxic injury. MIDLINE SHIFT OR HERNIATION: There is no midline shift. Mass effect secondary to diffuse cerebral guerline ma is bilaterally symmetrical. CEREBELLUM / BRAINSTEM: As noted above there is effacement of the prepontine cistern, quadrigeminal p late cistern and partial effacement of the superior cerebellar cistern. Loss of new-white distinctio n is noted in both cerebellar hemispheres. Diffusely decreased brain parenchymal attenuation is seen within the mesencephalon and yumiko. MIDLINE STRUCTURES:No abnormalities of the pituitary gland or pineal region are identified. INTRACRANIAL VESSELS:No abnormalities are identified on this noncontrast head CT. ORBITS: visualized portions of the orbits have an unremarkable appearance. SOFT TISSUES of HEAD: No significant abnormality. CALVARIUM: Evaluation of bone windows reveals no abnormalities. PARANASAL SINUSES / MASTOID AIR CELLS: Visualized portions of the paranasal sinuses are free from inf lammatory mucosal disease. Mastoid air cells are normally pneumatized. IMPRESSION: 1. Loss of new-white differentiation and diffuse mass effect with effacement of cortical sulci and b asilar cisterns as described in detail above. These findings indicate the presence of severe global a noxic injury involving both cerebral hemispheres and cerebellar hemispheres.. CRITICAL RESULT: Time of Discovery (BACK STRIP MACHINE OPERATOR/CDT): 1640 Central standard time Time of Communication (BACK STRIP MACHINE OPERATOR/CDT): 1648 Central standard time Licensed Practitioner Receiving Report: Dr. Santamaria Read-Back Performed: Not applicable. Signer Name: Sarath Boothe MD Signed: 12/10/2021 5:55 PM Workstation Name: [id number]
--- NOTE | 2021-12-10 18:00 | Cat Scan Report ---
CT HEAD WITHOUT CONTRAST INDICATION / CLINICAL INFORMATION: Found down/cardiac arrest. TECHNIQUE: All CT scans at this location are performed using CT dose reduction for ALARA by means of automated e xposure control. COMPARISON: Head CT 02/17/2021 FINDINGS: HEMORRHAGE: No evidence of intracranial hemorrhage or extra-axial fluid collection. Increased attenua tion in the interhemispheric fissure, sylvian cisterns and sylvian fissures represent normal vascular structures accentuated by surrounding diffusely decreased brain parenchymal attenuation. EXTRA-AXIAL SPACES: There is effacement of cortical sulci over both cerebral hemispheres. In addition the basilar cisterns are effaced. There is partial effacement of the superior cerebellar cistern in comparison to previous study. Prepontine cistern is effaced. The suprasellar cistern is largely effac ed in comparison to previous study. This may indicate presence of bilateral uncal herniation. These f indings represent a manifestation of mass effect secondary to diffuse brain edema. VENTRICULAR SYSTEM: The third and lateral ventricles are slitlike, decreased in size compared to base line study 02/17/2021. This is a manifestation of diffuse cerebral edema. CEREBRAL PARENCHYMA: Complete absence of new-white distinction is noted. Brain parenchyma is diffuse ly decreased in attenuation. Findings suggest the presence of severe global anoxic injury. MIDLINE SHIFT OR HERNIATION: There is no midline shift. Mass effect secondary to diffuse cerebral guerline ma is bilaterally symmetrical. CEREBELLUM / BRAINSTEM: As noted above there is effacement of the prepontine cistern, quadrigeminal p late cistern and partial effacement of the superior cerebellar cistern. Loss of new-white distinctio n is noted in both cerebellar hemispheres. Diffusely decreased brain parenchymal attenuation is seen within the mesencephalon and yumiko. MIDLINE STRUCTURES:No abnormalities of the pituitary gland or pineal region are identified. INTRACRANIAL VESSELS:No abnormalities are identified on this noncontrast head CT. ORBITS: visualized portions of the orbits have an unremarkable appearance. SOFT TISSUES of HEAD: No significant abnormality. CALVARIUM: Evaluation of bone windows reveals no abnormalities. PARANASAL SINUSES / MASTOID AIR CELLS: Visualized portions of the paranasal sinuses are free from inf lammatory mucosal disease. Mastoid air cells are normally pneumatized. IMPRESSION: 1. Loss of new-white differentiation and diffuse mass effect with effacement of cortical sulci and b asilar cisterns as described in detail above. These findings indicate the presence of severe global a noxic injury involving both cerebral hemispheres and cerebellar hemispheres.. CRITICAL RESULT: Time of Discovery (REO ASSET MANAGER/CDT): 1640 Central standard time Time of Communication (REO ASSET MANAGER/CDT): 1648 Central standard time Licensed Practitioner Receiving Report: Dr. Santamaria Read-Back Performed: Not applicable. Signer Name: Sarath Boothe MD Signed: 12/10/2021 5:55 PM Workstation Name: [id number]
[2021-12-10] MEDS: NORepinephrine/NS 8 MG-250 ML 8 MG/250 ML INFUS..BTL IV SCH (21:10)
[2021-12-10] MEDS ORDERED: MORPHINE 2 MG/1 ML INJ IV PRN (21:37)
[2021-12-10] MEDS ORDERED: ONDANSETRON 4 MG/2 ML INJ IV PRN (21:37)
[2021-12-10] MEDS ORDERED: VANCOMYCIN 1,750 MG in SODIUM CHLORIDE 0.9% 500 ML 500 ML IV ONE (22:00)
[2021-12-10] MEDS ORDERED: VANCOMYCIN PHARMACY TO DOSE IV SCH (22:00)
[2021-12-10] MEDS: CEFEPIME/NS 2 GM/100 ML 2 GM/100 ML BAG IV SCH (22:36)
[2021-12-10] MEDS: HEPARIN 5,000 UNIT/1 ML VIAL SUB-Q SCH (22:39)
[2021-12-10] MEDS: POTASSIUM CHLORIDE 10 MEQ 10 MEQ/100 ML BAG IV SCH (22:39)
[2021-12-10] MEDS ORDERED: EPINEPHrine 1 MG/10 ML SYRINGE ONE (23:35)
[2021-12-10] MEDS ORDERED: DOPamine DRIP 800 MG/D5W 250ML PreMix IV ONE (23:35)
[2021-12-10] MEDS ORDERED: ATROPINE 0.1% (1 MG/10 ML) CARDIAC SYRINGE ONE (23:35)
[2021-12-11] MEDS: POTASSIUM CHLORIDE 10 MEQ 10 MEQ/100 ML BAG IV SCH (01:10)
[2021-12-11] MEDS: SODIUM CHLORIDE 0.9% 1000 ML 1,000 ML IV SCH ×2 (03:31→15:35)
[2021-12-11 05:11] LABS: Basophils % (Auto) 0.2 % (0.0-1.8); Eosinophils % (Auto) 0.1 % (0.0-4.3); Hematocrit 46.1 % (30.3-42.9); Hemoglobin 14.7 gm/dl (10.1-14.3); Lymphocytes # (Auto) 0.8 K/mm3 (1.2-5.4); Mean Corpuscular HGB Conc 32 % (30-34); Mean Corpuscular Volume 95 fl (79-97); Monocytes # (Auto) 0.4 K/mm3 (0.0-0.8); Monocytes % (Auto) 4.1 % (0.0-7.3); Platelet Count 208 K/mm3 (140-440); Red Blood Count 4.84 M/mm3 (3.65-5.03); Red Cell Distribution Width 17.8 % (13.2-15.2)
[2021-12-11 05:31] LABS: Albumin 3.4 g/dL (3.9-5); Calcium 7.6 mg/dL (8.4-10.2)
--- NOTE | 2021-12-11 06:05 | History and Physical Report ---
History of Present Illness Date of examination: 12/10/21 Date of admission: 12/10/21 21:37 Chief complaint: Status postcardiac arrest History of present illness: The patient is a 41-year-old female presenting status post cardiac arrest. 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 Approximately 10 minutes later staff went to check on the patient and found her unresponsive on the ground outside. EMS was called and arrived on scene at 12: 55 to find the patient in PEA. ACLS protocols were initiated and patient was intubated using a Kristian airway. Per EMS they achieved ROSC 3 times the last which just prior to arrival to the ED. Patient was defibrillated once, administered 4 rounds of epi, 1 amp of sodium bicarb, 1 calcium and Narcan 2 mg prior to arrival. Upon arrival to the ED the Kristian airway was removed and the patient was intubated by ED Kayli Santamaria using the glidescope, patient was found in asystole and ACLS protocols were continued with eventual ROSC. Patient unresponsive,. Patient on pressors. Patient was supposed to be taking Keppra 5 mg twice a day but she was taking only once at nighttime. Other than seizure disorder patient does not have any other medical problems. 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 Has children who are out of state. Had conversation with her niece who is at bedside. And talked with the daughter on the phone regarding prognosis and diagnosis. - Past Medical History --Seizures: Yes - Surgical History --Past Surgical History?: No - Family History --Family history: no significant - Social History --Smoking Status: Unknown if ever smoked --Substance Use Type: None - Medications --Home Medications: Home Medications Medication Instructions Recorded Confirmed Last Taken Type Baclofen [Lioresal] 10 mg PO TID #30 tab 12/09/20 04/30/21 04/28/21 Rx levETIRAcetam [Keppra TAB] 500 mg PO BID #60 tablet 02/17/21 04/30/21 09/06/21 09:00 Rx Aspirin/Caffeine [Bc Pain Relief 2 each PO QDAY 04/30/21 04/30/21 04/29/21 History Powder Packet] HYDROcodone/APAP 5-325 [[place] 1 each PO Q6HR PRN #24 tablet 05/03/21 Unknown Rx 5/325] dexAMETHasone [Decadron] 4 mg PO DAILY #6 tab 05/03/21 Unknown Rx Ketorolac [Toradol] 10 mg PO Q6H PRN #10 tab 07/02/21 Unknown Rx Ibuprofen [Motrin] 600 mg PO Q8H PRN #20 tablet 11/11/21 Unknown Rx levETIRAcetam [Keppra TAB] 500 mg PO BID #60 tablet 11/11/21 Unknown Rx Review of Systems ROS: Stated complaint: CARDIAC ARREST Other details as noted in HPI Comment: Unobtainable due to pts medical conditions Medications and Allergies Allergies Allergy/AdvReac Type Severity Reaction Status Date / Time No Known Allergies Allergy Verified 11/11/21 10:14 Home Medications Medication Instructions Recorded Confirmed Last Taken Type Baclofen [Lioresal] 10 mg PO TID #30 tab 12/09/20 04/30/21 04/28/21 Rx levETIRAcetam [Keppra TAB] 500 mg PO BID #60 tablet 02/17/21 04/30/21 09/06/21 09:00 Rx Aspirin/Caffeine [Bc Pain Relief 2 each PO QDAY 04/30/21 04/30/21 04/29/21 History Powder Packet] HYDROcodone/APAP 5-325 [[place] 1 each PO Q6HR PRN #24 tablet 05/03/21 Unknown Rx 5/325] dexAMETHasone [Decadron] 4 mg PO DAILY #6 tab 05/03/21 Unknown Rx Ketorolac [Toradol] 10 mg PO Q6H PRN #10 tab 07/02/21 Unknown Rx Ibuprofen [Motrin] 600 mg PO Q8H PRN #20 tablet 11/11/21 Unknown Rx levETIRAcetam [Keppra TAB] 500 mg PO BID #60 tablet 11/11/21 Unknown Rx Active Meds: Active Medications Acetaminophen (Acetaminophen 325 Mg Tab) 650 mg PO Q4H PRN PRN Reason: Pain MILD(1-3)/Fever >100.5/WEBB Heparin Sodium (Porcine) (Heparin 5,000 Unit/1 Ml Vial) 5,000 unit SUB-Q Q12HR PAIGE Last Admin: 12/10/21 22:39 Dose: 5,000 unit Dopamine HCl/Dextrose (Dopamine 800 Mg/D5w 250ml) 800 mg in 250 mls @ 15.75 mls/hr IV TITR ONE; Protocol Stop: 12/11/21 07:52 Last Admin: 12/10/21 22:47 Dose: 20 mcg/kg/min, 31.5 mls/hr NORepinephrine/NS 8 MG-250 ML (Norepinephrine/Ns 8 Mg-250 Ml (Double Conc)) 8 mg in 250 mls @ 11.25 mls/hr IV TITRATE PAIGE; Protocol Last Titration: 12/11/21 03:43 Dose: Infused Sodium Chloride (Nacl 0.9% 1000 Ml) 1,000 mls @ 75 mls/hr IV DIRECT PAIGE Last Admin: 12/11/21 03:31 Dose: 75 mls/hr Cefepime HCl (Cefepime/Ns 2 Gm/100 Ml) 2 gm in 100 mls @ 200 mls/hr IV Q8H PAIGE; Protocol Last Admin: 12/10/21 22:36 Dose: 200 mls/hr Vancomycin HCl 1,250 mg/ (Sodium Chloride) 275 mls @ 166.667 mls/hr IV Q12H PAIGE Morphine Sulfate (Morphine 2 Mg/1 Ml Inj) 2 mg IV Q4H PRN PRN Reason: Pain, Moderate (4-6) Ondansetron HCl (Ondansetron 4 Mg/2 Ml Inj) 4 mg IV Q8H PRN PRN Reason: Nausea And Vomiting Sodium Chloride (Sodium Chloride 0.9% 10 Ml Flush Syringe) 10 ml IV BID PAIGE Last Admin: 12/10/21 22:49 Dose: 10 ml Sodium Chloride (Sodium Chloride 0.9% 10 Ml Flush Syringe) 10 ml IV PRN PRN PRN Reason: LINE FLUSH Exam - Physical Exam Narrative exam: Patient intubated and on vent management. Also on IV fluids and pressors. - Constitutional Vitals: Temp Pulse Resp BP Pulse Ox 103.1 F H 139 H 20 88/36 98 12/11/21 04:00 12/11/21 05:00 12/11/21 05:00 12/11/21 05:00 12/11/21 05:00 General appearance: Present: no acute distress, severe distress, well-nourished - EENT Eyes: Present: PERRL ENT: hearing intact, clear oral mucosa - Neck Neck: Present: supple, normal ROM - Respiratory Respiratory effort: normal Respiratory: bilateral: CTA - Cardiovascular Heart rate: 108 Rhythm: regular Heart Sounds: Present: S1 & S2. Absent: rub, click - Extremities Extremities: pulses symmetrical, No edema Peripheral Pulses: within normal limits - Abdominal General gastrointestinal: Present: soft, non-tender, non-distended, normal bowel sounds Female genitourinary: Present: normal - Integumentary Integumentary: Present: clear, warm, dry - Musculoskeletal Musculoskeletal: generalized weakness - Psychiatric Psychiatric: other (Unresponsive) - Neurologic Neurologic: other (Unresponsive) - Allied Health Allied health notes reviewed: nursing, case management HEART Score - HEART Score History: Slightly suspicious Age: < 45 Risk factors: 1-2 risk factors Troponin: Troponin T < 0.010 ng/mL (0.00-0.029) 12/10/21 13:46 Troponin: < normal limit - Critical Actions Critical Actions: 0-3 pts:0.9-1.7%risk of adverse cardiac event.Candidate for discharge Results - Labs CBC & Chem 7: 12/11/21 04:22 12/11/21 04:00 Labs: Laboratory Last Values WBC 10.3 K/mm3 (4.5-11.0) 12/11/21 04:22 RBC 4.84 M/mm3 (3.65-5.03) 12/11/21 04:22 Hgb 14.7 gm/dl (10.1-14.3) H 12/11/21 04:22 Hct 46.1 % (30.3-42.9) H 12/11/21 04:22 MCV 95 fl (79-97) 12/11/21 04:22 MCH 30 pg (28-32) 12/11/21 04:22 MCHC 32 % (30-34) 12/11/21 04:22 RDW 17.8 % (13.2-15.2) H 12/11/21 04:22 Plt Count 208 K/mm3 (140-440) 12/11/21 04:22 Lymph % (Auto) 8.0 % (13.4-35.0) L 12/11/21 04:22 [place] % (Auto) 4.1 % (0.0-7.3) 12/11/21 04:22 Eos % (Auto) 0.1 % (0.0-4.3) 12/11/21 04:22 Baso % (Auto) 0.2 % (0.0-1.8) 12/11/21 04:22 Lymph # (Auto) 0.8 K/mm3 (1.2-5.4) L 12/11/21 04:22 [place] # (Auto) 0.4 K/mm3 (0.0-0.8) 12/11/21 04:22 Eos # (Auto) 0.0 K/mm3 (0.0-0.4) 12/11/21 04:22 Baso # (Auto) 0.0 K/mm3 (0.0-0.1) 12/11/21 04:22 Add Manual Diff Complete 12/10/21 13:46 Total Counted 100 12/10/21 13:46 Seg Neutrophils % 87.6 % (40.0-70.0) H 12/11/21 04:22 Seg Neuts % (Manual) 71.0 % (40.0-70.0) H 12/10/21 13:46 Band Neutrophils % 0 % 12/10/21 13:46 Lymphocytes % (Manual) 25.0 % (13.4-35.0) 12/10/21 13:46 Reactive Lymphs % (Man) 0 % 12/10/21 13:46 Monocytes % (Manual) 3.0 % (0.0-7.3) 12/10/21 13:46 Eosinophils % (Manual) 0 % (0.0-4.3) 12/10/21 13:46 Basophils % (Manual) 0 % (0.0-1.8) 12/10/21 13:46 Metamyelocytes % 0 % 12/10/21 13:46 Myelocytes % 1.0 % 12/10/21 13:46 Promyelocytes % 0 % 12/10/21 13:46 Blast Cells % 0 % 12/10/21 13:46 Nucleated RBC % Not Reportable 12/10/21 13:46 Seg Neutrophils # 9.1 K/mm3 (1.8-7.7) H 12/11/21 04:22 Seg Neutrophils # Man 9.2 K/mm3 (1.8-7.7) H 12/10/21 13:46 Band Neutrophils # 0.0 K/mm3 12/10/21 13:46 Lymphocytes # (Manual) 3.3 K/mm3 (1.2-5.4) 12/10/21 13:46 Abs React Lymphs (Man) 0.0 K/mm3 12/10/21 13:46 Monocytes # (Manual) 0.4 K/mm3 (0.0-0.8) 12/10/21 13:46 Eosinophils # (Manual) 0.0 K/mm3 (0.0-0.4) 12/10/21 13:46 Basophils # (Manual) 0.0 K/mm3 (0.0-0.1) 12/10/21 13:46 Metamyelocytes # 0.0 K/mm3 12/10/21 13:46 Myelocytes # 0.1 K/mm3 12/10/21 13:46 Promyelocytes # 0.0 K/mm3 12/10/21 13:46 Blast Cells # 0.0 K/mm3 12/10/21 13:46 WBC Morphology Not Reportable 12/10/21 13:46 Hypersegmented Neuts Not Reportable 12/10/21 13:46 Hyposegmented Neuts Not Reportable 12/10/21 13:46 Hypogranular Neuts Not Reportable 12/10/21 13:46 Smudge Cells Not Reportable 12/10/21 13:46 Toxic Granulation Not Reportable 12/10/21 13:46 Toxic Vacuolation Not Reportable 12/10/21 13:46 Dohle Bodies Not Reportable 12/10/21 13:46 Pelger-Huet Anomaly Not Reportable 12/10/21 13:46 Renny Rods Not Reportable 12/10/21 13:46 Platelet Estimate Consistent w auto 12/10/21 13:46 Clumped Platelets Not Reportable 12/10/21 13:46 Plt Clumps, EDTA Not Reportable 12/10/21 13:46 Large Platelets Not Reportable 12/10/21 13:46 Giant Platelets Not Reportable 12/10/21 13:46 Platelet Satelliting Not Reportable 12/10/21 13:46 Plt Morphology Comment Not Reportable 12/10/21 13:46 RBC Morphology Normal 12/10/21 13:46 Dimorphic RBCs Not Reportable 12/10/21 13:46 Polychromasia Not Reportable 12/10/21 13:46 Hypochromasia Not Reportable 12/10/21 13:46 Poikilocytosis Not Reportable 12/10/21 13:46 Anisocytosis Not Reportable 12/10/21 13:46 Microcytosis Not Reportable 12/10/21 13:46 Macrocytosis Not Reportable 12/10/21 13:46 Spherocytes Not Reportable 12/10/21 13:46 Pappenheimer Bodies Not Reportable 12/10/21 13:46 Sickle Cells Not Reportable 12/10/21 13:46 Target Cells Not Reportable 12/10/21 13:46 Tear Drop Cells Not Reportable 12/10/21 13:46 Ovalocytes Not Reportable 12/10/21 13:46 Helmet Cells Not Reportable 12/10/21 13:46 [place] Bodies Not Reportable 12/10/21 13:46 [place] Rings Not Reportable 12/10/21 13:46 Melvin Cells Not Reportable 12/10/21 13:46 Bite Cells Not Reportable 12/10/21 13:46 Crenated Cell Not Reportable 12/10/21 13:46 Elliptocytes Not Reportable 12/10/21 13:46 Acanthocytes (Spur) Not Reportable 12/10/21 13:46 Rouleaux Not Reportable 12/10/21 13:46 Hemoglobin C Crystals Not Reportable 12/10/21 13:46 Schistocytes Not Reportable 12/10/21 13:46 Malaria parasites Not Reportable 12/10/21 13:46 Pedro Pablo Bodies Not Reportable 12/10/21 13:46 Hem Pathologist Commnt No 12/10/21 13:46 ABG pH 6.969 pH Units (7.350-7.450) L* 12/10/21 14:40 ABG pCO2 73.3 mm Hg 12/10/21 14:40 ABG pO2 163.5 mm Hg (80.0-90.0) H 12/10/21 14:40 ABG HCO3 16.5 mmol/L (20.0-26.0) L 12/10/21 14:40 ABG O2 Saturation 98.3 % (95.0-99.0) 12/10/21 14:40 ABG O2 Content 18.1 (0.0-44) 12/10/21 14:40 ABG Base Excess -16.2 mmol/L (-2.0-3.0) L 12/10/21 14:40 ABG Hemoglobin 13.3 gm/dl (12.0-16.0) 12/10/21 14:40 ABG Carboxyhemoglobin 2.8 % (0.0-5.0) 12/10/21 14:40 ABG Methemoglobin 0.7 % (0.0-1.5) 12/10/21 14:40 VBG pH 6.888 (7.320-7.420) L* 12/10/21 14:12 Oxyhemoglobin 94.9 % (95.0-99.0) L 12/10/21 14:40 FiO2 100 % 12/10/21 14:40 Sodium 141 mmol/L (137-145) 12/11/21 04:00 Potassium 3.6 mmol/L (3.6-5.0) 12/11/21 04:00 Chloride 105.6 mmol/L (98-107) 12/11/21 04:00 Carbon Dioxide 21 mmol/L (22-30) L 12/11/21 04:00 Anion Gap 18 mmol/L 12/11/21 04:00 BUN 23 mg/dL (7-17) H 12/11/21 04:00 Creatinine 3.0 mg/dL (0.6-1.2) H D 12/11/21 04:00 Estimated GFR 21 ml/min 12/11/21 04:00 BUN/Creatinine Ratio 8 % 12/11/21 04:00 Glucose 202 mg/dL (65-100) H 12/11/21 04:00 POC Glucose 187 mg/dL (70-105) H 12/11/21 02:23 Lactic Acid 1.70 mmol/L (0.7-2.0) 12/11/21 Unknown Calcium 7.6 mg/dL (8.4-10.2) L D 12/11/21 04:00 Magnesium 2.30 mg/dL (1.7-2.3) 12/10/21 13:46 Total Bilirubin 0.40 mg/dL (0.1-1.2) 12/11/21 04:00 AST 319 units/L (5-40) H 12/11/21 04:00 ALT 123 units/L (7-56) H 12/11/21 04:00 Alkaline Phosphatase 119 units/L (35-129) 12/11/21 04:00 Total Creatine Kinase 170 units/L (30-135) H 12/10/21 13:46 CK-MB (CK-2) 1.4 ng/mL (0.0-4.0) 12/10/21 13:46 CK-MB (CK-2) Rel Index 0.8 (0-4) 12/10/21 13:46 Troponin T < 0.010 ng/mL (0.00-0.029) 12/10/21 13:46 Total Protein 5.7 g/dL (6.3-8.2) L 12/11/21 04:00 Albumin 3.4 g/dL (3.9-5) L 12/11/21 04:00 Albumin/Globulin Ratio 1.5 % 12/11/21 04:00 TSH 3.160 mlU/mL (0.270-4.200) 12/10/21 14:12 Free T4 0.70 ng/dL (0.76-1.46) L 12/10/21 14:12 HCG, Qual Negative (Negative) 12/10/21 13:46 Urine Color Yellow (Yellow) 12/10/21 14:21 Urine Turbidity Slightly cloudy (Clear) 12/10/21 14:21 Specific [place] (Man) 1.010 (1.003-1.030) 12/10/21 14:21 Ur Protein (Man) Negative mg/dL (Negative) 12/10/21 14:21 Ur Ketones (Man) Negative (Negative) 12/10/21 14:21 Ur Nitrite (Man) Negative (Negative) 12/10/21 14:21 Ur Reducing Substances Not Reportable 12/10/21 14:21 Urine Bilirubin (Man) Negative (Negative) 12/10/21 14:21 Urine Ictotest Not Reportable 12/10/21 14:21 Leukocyte Esterase (Man) Negative (Negative) 12/10/21 14:21 Urine WBC (Auto) 125.0 /HPF (0.0-6.0) H 12/10/21 14:21 Urine RBC (Auto) 14.0 /HPF (0.0-6.0) 12/10/21 14:21 U Epithel Cells (Auto) 7.0 /HPF (0-13.0) 12/10/21 14:21 Urine Bacteria (Auto) 2+ /HPF (Negative) 12/10/21 14:21 Urine RBC (Manual) 2+ (Negative) 12/10/21 14:21 Urine Mucus Few /HPF 12/10/21 14:21 Urine Opiates Screen Negative 12/10/21 14:21 Urine Methadone Screen Negative 12/10/21 14:21 Ur Barbiturates Screen Negative 12/10/21 14:21 Ur Phencyclidine Scrn Negative 12/10/21 14:21 Ur Amphetamines Screen Negative 12/10/21 14:21 U Benzodiazepines Scrn Negative 12/10/21 14:21 Urine Cocaine Screen Negative 12/10/21 14:21 U Marijuana (THC) Screen Negative 12/10/21 14:21 Drugs of Abuse Note Disclamer 12/10/21 14:21 Plasma/Serum Alcohol < 0.01 % (0-0.07) 12/10/21 13:46 - Imaging and Cardiology EKG: report reviewed (80 EKG sinus tachycardia no acute ST-T wave changes) Imaging and Cardiology: Head CT Loss of new-white differentiation and decreased mass-effect with effacement of cortical sulci and basilar cisterns as described in detail above. These findings indicate the presence of severe global anoxic injury involving both c erebral hemispheres and cerebellar hemispheres. Cervical spine CT C-spine Loss of new-white differentiation and diffuse mass-effect with effacement of cortical sulci and basilar cisterns as described these findings indicate the presence of severe global anoxic injury both cerebral hemispheres and cerebellar hemispheres. Chest x-ray no acute findings. Adequate placement of lines and tubes. Steven/IV: Voiding Method Indwelling Catheter Assessment and Plan Assessment and plan: Critical care statement The high probability OF a clinically significant sudden or life-threatening deterioration of the cardiorespiratory system and endocrine system required my full and direct attention, intervention and postoperative management. The aggregate critical care time was 62 minutes the time is in addition to time spent performing reported procedures but includes the followin: Data review and interpretation 2: Patient assessment and monitoring of vital signs 3: Documentation 4:: Medication orders and management Advance Directives: Yes (Full code) VTE prophylaxis?: Chemical Plan of care discussed with patient/family: Yes - Patient Problems (1) Cardiac arrest Current Visit: Yes Status: Acute Plan to address problem: Patient had ACLS for about 4 times Patient arrived and intubated. Patient unresponsive. Patient was in sinus tachycardia with low blood pressure. (2) Anoxic encephalopathy Current Visit: Yes Status: Acute Plan to address problem: Taking the history into consideration and possible aspiration and cardiac arrest and prolonged CPR patient may have been anoxic encephalopathy CAT scan shows cerebral edema bilaterally. Poor prognosis. Neurology consulted. (3) Seizure disorder Current Visit: No Status: Acute Plan to address problem: Patient initiated on IV Keppra. (4) Hypotension Current Visit: Yes Status: Acute Plan to address problem: Pressors as necessary (5) Aspiration pneumonia Current Visit: Yes Status: Acute Qualifiers: Lung location: unspecified part of lung Plan to address problem: Patient possibly aspirated after seizures while in the parking lot And went into PEA/cardiac arrest/cardiac arrest IV cefepime and vancomycin empirically (6) Lactic acidosis Current Visit: Yes Status: Acute Plan to address problem: Multifactorial Due to cardiac arrest: Possible sepsis and hypoxia IV antibiotics and vent support for now (7) Transaminitis Current Visit: Yes Status: Acute Plan to address problem: Secondary to hepatic congestion Hepatic profile requested (8) Malnutrition Current Visit: Yes Status: Acute Qualifiers: Protein-calorie malnutrition severity: mild Plan to address problem: Dietary supplements requested (9) DVT prophylaxis Current Visit: Yes Status: Acute Plan to address problem: On anticoagulation GI prophylaxis (10) Advance care planning Current Visit: Yes Status: Acute Plan to address problem: Discussed with daughter about disease education care plan diagnosis and prognosis. Patient is full code this pain. Daughter and understands her prognosis which is at. Patient daughter also understands with the care plan +30 minutes. Very poor prognosis.
[2021-12-11 06:20] LABS: ABG HCO3 15.7 mmol/L (20.0-26.0); ABG PCO2 34.5 mm Hg; ABG PH 7.276 pH Units (7.350-7.450)
[2021-12-11 06:21] LABS: ABG Methemoglobin 0.1 % (0.0-1.5); ABG Oxygen Saturation 98.4 % (95.0-99.0)
[2021-12-11] MEDS: ACETAMINOPHEN 325 MG TAB PO PRN ×3 (06:56→20:36)
[2021-12-11] MEDS: CEFEPIME/NS 2 GM/100 ML 2 GM/100 ML BAG IV SCH (06:57)
[2021-12-11] MEDS: NORepinephrine/NS 8 MG-250 ML 8 MG/250 ML INFUS..BTL IV SCH ×5 (06:57→23:14)
[2021-12-11] MEDS: VASOPRESSIN 20 UNIT in SODIUM CHLORIDE 0.9% 100 ML IV SCH ×2 (09:08→18:32)
[2021-12-11] MEDS: HEPARIN 5,000 UNIT/1 ML VIAL SUB-Q SCH ×2 (10:12→21:01)
[2021-12-11] MEDS ORDERED: VANCOMYCIN 1,250 MG in SODIUM CHLORIDE 0.9% 250ML 250 ML IV SCH (11:00)
[2021-12-11] MEDS ORDERED: PHENYLEPHRINE 100 MG in SODIUM CHLORIDE 0.9% 90 ML IV SCH (12:00)
--- NOTE | 2021-12-11 12:19 | Consultation ---
History of Present Illness Consult date: 12/11/21 History of present illness: I was not called about this patient on yesterday. My charge nurse notified me that this patient was in the ED but no call was ever made. 41 y/o female, found down outside of her place of employment. Cardiac arrest, ROSC achieved after an extended period of time. Had a pH of less than 7 on arrival. Intubated, not on sedation. Pupils are fixed and dilated. She has no cough and no gag. She is maxed on Levophed and Vaso and we are about to add a 3rd pressor. She is also in renal failure. Past History Past Medical History: seizures Past Surgical History: Other (UNABLE TO OBTAIN) Social history: smoking Medications and Allergies Allergies Allergy/AdvReac Type Severity Reaction Status Date / Time No Known Allergies Allergy Verified 11/11/21 10:14 Home Medications Medication Instructions Recorded Confirmed Last Taken Type Baclofen [Lioresal] 10 mg PO TID #30 tab 12/09/20 04/30/21 04/28/21 Rx levETIRAcetam [Keppra TAB] 500 mg PO BID #60 tablet 02/17/21 04/30/21 09/06/21 09:00 Rx Aspirin/Caffeine [Bc Pain Relief 2 each PO QDAY 04/30/21 04/30/21 04/29/21 History Powder Packet] HYDROcodone/APAP 5-325 [Jerome 1 each PO Q6HR PRN #24 tablet 05/03/21 Unknown Rx 5/325] dexAMETHasone [Decadron] 4 mg PO DAILY #6 tab 05/03/21 Unknown Rx Ketorolac [Toradol] 10 mg PO Q6H PRN #10 tab 07/02/21 Unknown Rx Ibuprofen [Motrin] 600 mg PO Q8H PRN #20 tablet 11/11/21 Unknown Rx levETIRAcetam [Keppra TAB] 500 mg PO BID #60 tablet 11/11/21 Unknown Rx Active Meds: Active Medications Acetaminophen (Acetaminophen 325 Mg Tab) 650 mg PO Q4H PRN PRN Reason: Pain MILD(1-3)/Fever >100.5/WEBB Last Admin: 12/11/21 06:56 Dose: 650 mg Heparin Sodium (Porcine) (Heparin 5,000 Unit/1 Ml Vial) 5,000 unit SUB-Q Q12HR PAIGE Last Admin: 12/11/21 10:12 Dose: 5,000 unit NORepinephrine/NS 8 MG-250 ML (Norepinephrine/Ns 8 Mg-250 Ml (Double Conc)) 8 mg in 250 mls @ 11.25 mls/hr IV TITRATE PAIGE; Protocol Last Admin: 12/11/21 11:05 Dose: 30 mcg/min, 56.25 mls/hr Sodium Chloride (Nacl 0.9% 1000 Ml) 1,000 mls @ 75 mls/hr IV DIRECT PAIGE Last Admin: 12/11/21 03:31 Dose: 75 mls/hr Cefepime HCl (Cefepime/Ns 2 Gm/100 Ml) 2 gm in 100 mls @ 200 mls/hr IV Q24H PAIGE; Protocol Vasopressin 20 unit/ Sodium (Chloride) 101 mls @ 9.09 mls/hr IV TITR PAIGE; Protocol Last Admin: 12/11/21 09:08 Dose: 0.03 units/min, 9.09 mls/hr Phenylephrine HCl 100 mg/ (Sodium Chloride) 100 mls @ 3 mls/hr IV TITR PAIGE; Protocol Morphine Sulfate (Morphine 2 Mg/1 Ml Inj) 2 mg IV Q4H PRN PRN Reason: Pain, Moderate (4-6) Ondansetron HCl (Ondansetron 4 Mg/2 Ml Inj) 4 mg IV Q8H PRN PRN Reason: Nausea And Vomiting Sodium Chloride (Sodium Chloride 0.9% 10 Ml Flush Syringe) 10 ml IV BID PAIGE Last Admin: 12/11/21 10:13 Dose: 10 ml Sodium Chloride (Sodium Chloride 0.9% 10 Ml Flush Syringe) 10 ml IV PRN PRN PRN Reason: LINE FLUSH Review of Systems ROS unobtainable: due to endotracheal tube, due to mental status Physical Examination Vital signs: Vital Signs BP 109/49 12/10/21 13:48 General appearance: comatose Eyes: other (PUPILS FIXED AND DILATED) ENT: other (ORALLY INTUBATED, NO COUGH, NO GAG) Neck: supple Effort: normal Ascultation: Bilateral: clear Results - Laboratory Findings CBC and BMP: 12/11/21 04:22 12/11/21 04:00 ABG ABG pH 7.276 pH Units (7.350-7.450) L 12/11/21 05:47 ABG pCO2 34.5 mm Hg 12/11/21 05:47 ABG pO2 111.0 mm Hg (80.0-90.0) H 12/11/21 05:47 ABG O2 Saturation 98.4 % (95.0-99.0) 12/11/21 05:47 Abnormal lab findings: Abnormal Labs 12/10/21 12/10/21 12/10/21 13:27 13:46 13:46 WBC 13.0 H Hgb Hct MCV 105 H MCHC 29 L RDW 18.3 H Lymph % (Auto) Lymph # (Auto) Seg Neutrophils % Seg Neuts % (Manual) 71.0 H Seg Neutrophils # Seg Neutrophils # Man 9.2 H ABG pH ABG pO2 ABG HCO3 ABG Base Excess ABG Hemoglobin VBG pH Oxyhemoglobin Potassium 3.4 L Chloride 92.6 L Carbon Dioxide 15 L BUN 6 L Creatinine Glucose 349 H POC Glucose 354 H Lactic Acid Calcium 11.2 H AST 76 H ALT Total Creatine Kinase 170 H Total Protein 5.8 L Albumin 3.6 L Free T4 Urine WBC (Auto) 12/10/21 12/10/21 12/10/21 14:12 14:12 14:12 WBC Hgb Hct MCV MCHC RDW Lymph % (Auto) Lymph # (Auto) Seg Neutrophils % Seg Neuts % (Manual) Seg Neutrophils # Seg Neutrophils # Man ABG pH ABG pO2 ABG HCO3 ABG Base Excess ABG Hemoglobin VBG pH 6.888 L* Oxyhemoglobin Potassium Chloride Carbon Dioxide BUN Creatinine Glucose POC Glucose Lactic Acid 17.70 H* Calcium AST ALT Total Creatine Kinase Total Protein Albumin Free T4 0.70 L Urine WBC (Auto) 12/10/21 12/10/21 12/10/21 14:21 14:40 15:31 WBC Hgb Hct MCV MCHC RDW Lymph % (Auto) Lymph # (Auto) Seg Neutrophils % Seg Neuts % (Manual) Seg Neutrophils # Seg Neutrophils # Man ABG pH 6.969 L* ABG pO2 163.5 H ABG HCO3 16.5 L ABG Base Excess -16.2 L ABG Hemoglobin VBG pH Oxyhemoglobin 94.9 L Potassium Chloride Carbon Dioxide BUN Creatinine Glucose POC Glucose Lactic Acid 11.40 H* Calcium AST ALT Total Creatine Kinase Total Protein Albumin Free T4 Urine WBC (Auto) 125.0 H 09/12/2312/10/21 12/11/21 16:23 22:54 02:23 WBC Hgb Hct MCV MCHC RDW Lymph % (Auto) Lymph # (Auto) Seg Neutrophils % Seg Neuts % (Manual) Seg Neutrophils # Seg Neutrophils # Man ABG pH ABG pO2 ABG HCO3 ABG Base Excess ABG Hemoglobin VBG pH Oxyhemoglobin Potassium Chloride Carbon Dioxide BUN Creatinine Glucose POC Glucose 187 H Lactic Acid 10.30 H* 2.20 H* Calcium AST ALT Total Creatine Kinase Total Protein Albumin Free T4 Urine WBC (Auto) 12/11/21 12/11/21 12/11/21 04:00 04:22 05:47 WBC Hgb 14.7 H Hct 46.1 H MCV MCHC RDW 17.8 H Lymph % (Auto) 8.0 L Lymph # (Auto) 0.8 L Seg Neutrophils % 87.6 H Seg Neuts % (Manual) Seg Neutrophils # 9.1 H Seg Neutrophils # Man ABG pH 7.276 L ABG pO2 111.0 H ABG HCO3 15.7 L ABG Base Excess -10.0 L ABG Hemoglobin 16.1 H VBG pH Oxyhemoglobin Potassium Chloride Carbon Dioxide 21 L BUN 23 H Creatinine 3.0 H D Glucose 202 H POC Glucose Lactic Acid Calcium 7.6 L D AST 319 H ALT 123 H Total Creatine Kinase Total Protein 5.7 L Albumin 3.4 L Free T4 Urine WBC (Auto) 12/11/21 06:06 WBC Hgb Hct MCV MCHC RDW Lymph % (Auto) Lymph # (Auto) Seg Neutrophils % Seg Neuts % (Manual) Seg Neutrophils # Seg Neutrophils # Man ABG pH ABG pO2 ABG HCO3 ABG Base Excess ABG Hemoglobin VBG pH Oxyhemoglobin Potassium Chloride Carbon Dioxide BUN Creatinine Glucose POC Glucose 189 H Lactic Acid Calcium AST ALT Total Creatine Kinase Total Protein Albumin Free T4 Urine WBC (Auto) - Diagnostic Findings Chest x-ray: image reviewed Additional studies: rEVIEWED HEAD CT AND REPORT Assessment and Plan 41 Y/O FEMALE WITH OUT OF HOSPITAL CARDIAC ARREST, UNKNOWN DOWNTIME WITH ROSC FOUND TO HAVE SEVERE ANOXIC BRAIN INJURY, RENAL FAILURE AND CARDIOVASCULAR COLLAPSE 1. ECHO 2. NEUROLOGY CONSULT 3. SUPPORTIVE CARE 4. GIVEN THE CLINICAL FINDINGS AND IMAGING, LIKELIHOOD OF RECOVERY IS NONE. WILL DISCUSS WITH FAMILY. POOR PROGNOSIS.
--- NOTE | 2021-12-11 14:22 | Progress Note ---
Assessment and Plan Assessment and plan: This is a 41-year-old female with seizure disorder and nicotine abuse admitted s/p cardiac arrest with acute hypoxic respiratory failure Neuro: Anoxic brain injury -CT C-spine showed no indication of cervical fracture, subluxation or significant degenerative change -CT head shows loss of new/white differentiation and diffuse mass-effect with effacement of cortical sulci and basilar cisterns, findings indicate the presence of severe global anoxic injury involving both cerebral hemispheres and cerebellar hemispheres. -Neurology consulted, appreciate recommendations -No cough/gag, no pupillary response, pupils dilated Cardiac: S/p cardiac arrest -Per EMS she received 4 rounds of epinephrine, 1 amp of bicarb, 1 calcium connate, amiodarone 200 mg and Narcan 2 mg and was defibrillated 1 time, ach ievement of ROSC x3 -Suffered another cardiac arrest in the emergency department with ROSC after 5 m inutes -Stat echocardiogram pending -Blood pressure monitoring per protocol -Vasopressor support with Levophed and vasopressin -MAP goal greater than 65 Respiratory: Acute hypoxic respiratory failure -CCM consulted, appreciate recommendations -Intubated on 7.0 ETT at 21 cm of the right lip -A.m. vent settings: Assist-control rate 20, tidal volume 450, FiO2 80%, PEEP 8 -See RT notes for titration -A.m. ABG and CXR noted -VAP bundle -SPO2 monitoring GI: Transaminitis, moderate protein calorie malnutrition, obesity -24 hours +480 ml -PPI -NPO for pressor requirements : Acute kidney injury secondary to vasomotor nephropathy, metabolic acidosis -monitor intake and output -Renally dose medications -Avoid nephrotoxic medications ID: SIRS (POA) -presented with tachycardia, febrile illness, leukocytosis -Antibiotic therapy with cefepime, vancomycin -f/u blood culture -Monitor WBC and temperature curve Endo: NAD -Avoid hypoglycemia Heme: Leukocytosis -Trend CBC -Transfuse hemoglobin less than 7 -SCDs to BLE while in bed The high probability of a clinically significant, sudden or life threatening deterioration of the [] system(s) required my full and direct attention, intervention and personal management. The aggregate critical care time was [] minutes. This time is in addition to time spent performing reported procedures but includes the following: [x] Data Review and interpretation [x] Patient assessment and monitoring of vital signs [x] Documentation [x] Medication orders and management Disposition Plan: icu Total Time Spent with Patient (Minutes): 60 History Interval history: This is a 41-year-old female with seizure disorder and smoker who presented to the emergency department via EMS after being found in cardiac arrest. 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 ACLS was initiated and the patient was intubated using a Kristian airway and ROSC was achieved 3 times with the last just prior to arrival to the ED and was defibrillated once. She did receive 4 rounds of epinephrine, 1 amp of bicarbonate, 1 calcium, amiodarone 300mg and 2 mg of Narcan by EMS. Upon arrival to the emergency department patient was intubated and was found to be in asystole and ACLS protocols were continued with eventual ROSC after 5 minutes. Patient was also started on a dopamine drip in the ED. Patient was admitted to the hospitalist service with consults to [facility] s/p cardiac arrest with acute hypoxic respiratory failure, lactic acidosis, hypokalemia, metabolic acidosis. Hospital course to date: 12/11: Morning lab work showed worsening renal function with transaminitis and resolution of leukocytosis. Family at bedside. Patient maxed on Levophed and started on vasopressin. Stat echocardiogram ordered with a neurology consult. Hospitalist Physical - Constitutional Vitals: Temp Pulse Resp BP Pulse Ox 103.4 F H 101 H 20 99/53 97 12/11/21 12:00 12/11/21 14:00 12/11/21 14:00 12/11/21 14:00 12/11/21 14:00 General appearance: Present: no acute distress, severe distress, well-nourished - EENT Eyes: Absent: PERRL, EOM intact ENT: dentition normal - Respiratory Respiratory effort: normal Respiratory: bilateral: diminished - Cardiovascular Rhythm: regular Heart Sounds: Present: S1 & S2. Absent: systolic murmur, diastolic murmur - Extremities Extremities: no ischemia, pulses intact, pulses symmetrical, normal color Peripheral Pulses: within normal limits - Abdominal General gastrointestinal: soft, non-tender, non-distended, normal bowel sounds - Integumentary Integumentary: Present: warm, dry - Psychiatric Psychiatric: other - Neurologic Neurologic: other (Pupils dilated, not reactive to light, no cough/gag, no response to painful stimuli) - Allied Health Allied health notes reviewed: nursing, RT HEART Score - HEART Score Age: < 45 Risk factors: 1-2 risk factors Troponin: Troponin T < 0.010 ng/mL (0.00-0.029) 12/10/21 13:46 Troponin: < normal limit - Critical Actions Critical Actions: 0-3 pts:0.9-1.7%risk of adverse cardiac event.Candidate for discharge Results - Labs CBC & Chem 7: 12/11/21 04:22 12/11/21 04:00 Labs: Laboratory Last Values WBC 10.3 K/mm3 (4.5-11.0) 12/11/21 04: RBC 4.84 M/mm3 (3.65-5.03) 12/11/21 04:22 Hgb 14.7 gm/dl (10.1-14.3) H 12/11/21 04:22 Hct 46.1 % (30.3-42.9) H 12/11/21 04:22 MCV 95 fl (79-97) 12/11/21 04:22 MCH 30 pg (28-32) 12/11/21 04:22 MCHC 32 % (30-34) 12/11/21 04:22 RDW 17.8 % (13.2-15.2) H 12/11/21 04:22 Plt Count 208 K/mm3 (140-440) 12/11/21 04:22 Lymph % (Auto) 8.0 % (13.4-35.0) L 12/11/21 04:22 [place] % (Auto) 4.1 % (0.0-7.3) 12/11/21 04:22 Eos % (Auto) 0.1 % (0.0-4.3) 12/11/21 04:22 Baso % (Auto) 0.2 % (0.0-1.8) 12/11/21 04:22 Lymph # (Auto) 0.8 K/mm3 (1.2-5.4) L 12/11/21 04:22 [place] # (Auto) 0.4 K/mm3 (0.0-0.8) 12/11/21 04:22 Eos # (Auto) 0.0 K/mm3 (0.0-0.4) 12/11/21 04:22 Baso # (Auto) 0.0 K/mm3 (0.0-0.1) 12/11/21 04:22 Add Manual Diff Complete 12/10/21 13:46 Total Counted 100 12/10/21 13:46 Seg Neutrophils % 87.6 % (40.0-70.0) H 12/11/21 04:22 Seg Neuts % (Manual) 71.0 % (40.0-70.0) H 12/10/21 13:46 Band Neutrophils % 0 % 12/10/21 13:46 Lymphocytes % (Manual) 25.0 % (13.4-35.0) 12/10/21 13:46 Reactive Lymphs % (Man) 0 % 12/10/21 13:46 Monocytes % (Manual) 3.0 % (0.0-7.3) 12/10/21 13:46 Eosinophils % (Manual) 0 % (0.0-4.3) 12/10/21 13:46 Basophils % (Manual) 0 % (0.0-1.8) 12/10/21 13:46 Metamyelocytes % 0 % 12/10/21 13:46 Myelocytes % 1.0 % 12/10/21 13:46 Promyelocytes % 0 % 12/10/21 13:46 Blast Cells % 0 % 12/10/21 13:46 Nucleated RBC % Not Reportable 12/10/21 13:46 Seg Neutrophils # 9.1 K/mm3 (1.8-7.7) H 12/11/21 04:22 Seg Neutrophils # Man 9.2 K/mm3 (1.8-7.7) H 12/10/21 13:46 Band Neutrophils # 0.0 K/mm3 12/10/21 13:46 Lymphocytes # (Manual) 3.3 K/mm3 (1.2-5.4) 12/10/21 13:46 Abs React Lymphs (Man) 0.0 K/mm3 12/10/21 13:46 Monocytes # (Manual) 0.4 K/mm3 (0.0-0.8) 12/10/21 13:46 Eosinophils # (Manual) 0.0 K/mm3 (0.0-0.4) 12/10/21 13:46 Basophils # (Manual) 0.0 K/mm3 (0.0-0.1) 12/10/21 13:46 Metamyelocytes # 0.0 K/mm3 12/10/21 13:46 Myelocytes # 0.1 K/mm3 12/10/21 13:46 Promyelocytes # 0.0 K/mm3 12/10/21 13:46 Blast Cells # 0.0 K/mm3 12/10/21 13:46 WBC Morphology Not Reportable 12/10/21 13:46 Hypersegmented Neuts Not Reportable 12/10/21 13:46 Hyposegmented Neuts Not Reportable 12/10/21 13:46 Hypogranular Neuts Not Reportable 12/10/21 13:46 Smudge Cells Not Reportable 12/10/21 13:46 Toxic Granulation Not Reportable 12/10/21 13:46 Toxic Vacuolation Not Reportable 12/10/21 13:46 Dohle Bodies Not Reportable 12/10/21 13:46 Pelger-Huet Anomaly Not Reportable 12/10/21 13:46 Renny Rods Not Reportable 12/10/21 13:46 Platelet Estimate Consistent w auto 12/10/21 13:46 Clumped Platelets Not Reportable 12/10/21 13:46 Plt Clumps, EDTA Not Reportable 12/10/21 13:46 Large Platelets Not Reportable 12/10/21 13:46 Giant Platelets Not Reportable 12/10/21 13:46 Platelet Satelliting Not Reportable 12/10/21 13:46 Plt Morphology Comment Not Reportable 12/10/21 13:46 RBC Morphology Normal 12/10/21 13:46 Dimorphic RBCs Not Reportable 12/10/21 13:46 Polychromasia Not Reportable 12/10/21 13:46 Hypochromasia Not Reportable 12/10/21 13:46 Poikilocytosis Not Reportable 12/10/21 13:46 Anisocytosis Not Reportable 12/10/21 13:46 Microcytosis Not Reportable 12/10/21 13:46 Macrocytosis Not Reportable 12/10/21 13:46 Spherocytes Not Reportable 12/10/21 13:46 Pappenheimer Bodies Not Reportable 12/10/21 13:46 Sickle Cells Not Reportable 12/10/21 13:46 Target Cells Not Reportable 12/10/21 13:46 Tear Drop Cells Not Reportable 12/10/21 13:46 Ovalocytes Not Reportable 12/10/21 13:46 Helmet Cells Not Reportable 12/10/21 13:46 [place] Bodies Not Reportable 12/10/21 13:46 [place] Rings Not Reportable 12/10/21 13:46 [place] Cells Not Reportable 12/10/21 13:46 Bite Cells Not Reportable 12/10/21 13:46 Crenated Cell Not Reportable 12/10/21 13:46 Elliptocytes Not Reportable 12/10/21 13:46 Acanthocytes (Spur) Not Reportable 12/10/21 13:46 Rouleaux Not Reportable 12/10/21 13:46 Hemoglobin C Crystals Not Reportable 12/10/21 13:46 Schistocytes Not Reportable 12/10/21 13:46 Malaria parasites Not Reportable 12/10/21 13:46 [place] Bodies Not Reportable 12/10/21 13:46 Hem Pathologist Commnt No 12/10/21 13:46 ABG pH 7.276 pH Units (7.350-7.450) L 12/11/21 05:47 ABG pCO2 34.5 mm Hg 12/11/21 05:47 ABG pO2 111.0 mm Hg (80.0-90.0) H 12/11/21 05:47 ABG HCO3 15.7 mmol/L (20.0-26.0) L 12/11/21 05:47 ABG O2 Saturation 98.4 % (95.0-99.0) 12/11/21 05:47 ABG O2 Content 18.1 (0.0-44) 12/10/21 14:40 ABG Base Excess -10.0 mmol/L (-2.0-3.0) L 12/11/21 05:47 ABG Hemoglobin 16.1 gm/dl (12.0-16.0) H 12/11/21 05:47 ABG Carboxyhemoglobin 0.6 % (0.0-5.0) 12/11/21 05:47 ABG Methemoglobin 0.1 % (0.0-1.5) 12/11/21 05:47 VBG pH 6.888 (7.320-7.420) L* 12/10/21 14:12 Oxyhemoglobin 97.7 % (95.0-99.0) 12/11/21 05:47 FiO2 90 % 12/11/21 05:47 Sodium 141 mmol/L (137-145) 12/11/21 04:00 Potassium 3.6 mmol/L (3.6-5.0) 12/11/21 04:00 Chloride 105.6 mmol/L (98-107) 12/11/21 04:00 Carbon Dioxide 21 mmol/L (22-30) L 12/11/21 04:00 Anion Gap 18 mmol/L 12/11/21 04:00 BUN 23 mg/dL (7-17) H 12/11/21 04:00 Creatinine 3.0 mg/dL (0.6-1.2) H D 12/11/21 04:00 Estimated GFR 21 ml/min 12/11/21 04:00 BUN/Creatinine Ratio 8 % 12/11/21 04:00 Glucose 202 mg/dL (65-100) H 12/11/21 04:00 POC Glucose 189 mg/dL (70-105) H 12/11/21 06:06 Lactic Acid 1.70 mmol/L (0.7-2.0) 12/11/21 Unknown Calcium 7.6 mg/dL (8.4-10.2) L D 12/11/21 04:00 Magnesium 2.30 mg/dL (1.7-2.3) 12/10/21 13:46 Total Bilirubin 0.40 mg/dL (0.1-1.2) 12/11/21 04:00 AST 319 units/L (5-40) H 12/11/21 04:00 ALT 123 units/L (7-56) H 12/11/21 04:00 Alkaline Phosphatase 119 units/L (35-129) 12/11/21 04:00 Total Creatine Kinase 170 units/L (30-135) H 12/10/21 13:46 CK-MB (CK-2) 1.4 ng/mL (0.0-4.0) 12/10/21 13:46 CK-MB (CK-2) Rel Index 0.8 (0-4) 12/10/21 13:46 Troponin T < 0.010 ng/mL (0.00-0.029) 12/10/21 13:46 Total Protein 5.7 g/dL (6.3-8.2) L 12/11/21 04:00 Albumin 3.4 g/dL (3.9-5) L 12/11/21 04:00 Albumin/Globulin Ratio 1.5 % 12/11/21 04:00 TSH 3.160 mlU/mL (0.270-4.200) 12/10/21 14:12 Free T4 0.70 ng/dL (0.76-1.46) L 12/10/21 14:12 HCG, Qual Negative (Negative) 12/10/21 13:46 Urine Color Yellow (Yellow) 12/10/21 14:21 Urine Turbidity Slightly cloudy (Clear) 12/10/21 14:21 Specific [place] (Man) 1.010 (1.003-1.030) 12/10/21 14:21 Ur Protein (Man) Negative mg/dL (Negative) 12/10/21 14:21 Ur Ketones (Man) Negative (Negative) 12/10/21 14:21 Ur Nitrite (Man) Negative (Negative) 12/10/21 14:21 Ur Reducing Substances Not Reportable 12/10/21 14:21 Urine Bilirubin (Man) Negative (Negative) 12/10/21 14:21 Urine Ictotest Not Reportable 12/10/21 14:21 Leukocyte Esterase (Man) Negative (Negative) 12/10/21 14:21 Urine WBC (Auto) 125.0 /HPF (0.0-6.0) H 12/10/21 14:21 Urine RBC (Auto) 14.0 /HPF (0.0-6.0) 12/10/21 14:21 U Epithel Cells (Auto) 7.0 /HPF (0-13.0) 12/10/21 14:21 Urine Bacteria (Auto) 2+ /HPF (Negative) 12/10/21 14:21 Urine RBC (Manual) 2+ (Negative) 12/10/21 14:21 Urine Mucus Few /HPF 12/10/21 14:21 Urine Opiates Screen Negative 12/10/21 14:21 Urine Methadone Screen Negative 12/10/21 14:21 Ur Barbiturates Screen Negative 12/10/21 14:21 Ur Phencyclidine Scrn Negative 12/10/21 14:21 Ur Amphetamines Screen Negative 12/10/21 14:21 U Benzodiazepines Scrn Negative 12/10/21 14:21 Urine Cocaine Screen Negative 12/10/21 14:21 U Marijuana (THC) Screen Negative 12/10/21 14:21 Drugs of Abuse Note Disclamer 12/10/21 14:21 Plasma/Serum Alcohol < 0.01 % (0-0.07) 12/10/21 13:46 Microbiology: Microbiology 12/11/21 07:53 Peripheral/Venous Blood Culture - Preliminary Culture in Progress Steven/IV: Voiding Method Indwelling Catheter Active Medications - Current Medications Current Medications: Generic Name Dose Route Start Last Admin Trade Name Freq PRN Reason Stop Dose Admin Acetaminophen 650 mg 12/10/21 21:37 12/11/21 12:42 Acetaminophen 325 Mg Tab PO 650 mg Q4H PRN Administration Pain MILD(1-3)/Fever >100.5/WEBB Heparin Sodium (Porcine) 5,000 unit 12/10/21 22:00 12/11/21 10:12 Heparin 5,000 Unit/1 Ml Vial SUB-Q 5,000 unit Q12HR PAIGE Administration NORepinephrine/NS 8 MG-250 ML 8 mg in 250 mls @ 11.25 mls/hr 12/10/21 15:00 12/11/21 11:05 Norepinephrine/Ns 8 Mg-250 Ml (Double Conc) IV 30 mcg/min TITRATE PAIGE 56.25 mls/hr Administration Protocol 6 MCG/MIN Sodium Chloride 1,000 mls @ 75 mls/hr 12/10/21 21:45 12/11/21 03:31 Nacl 0.9% 1000 Ml IV 75 mls/hr DIRECT PAIGE Administration Cefepime HCl 2 gm in 100 mls @ 200 mls/hr 12/12/21 06:00 Cefepime/Ns 2 Gm/100 Ml IV Q24H PAIGE Protocol Vasopressin 20 unit/ Sodium 101 mls @ 9.09 mls/hr 12/11/21 09:00 12/11/21 09:08 Chloride IV 0.03 units/min TITR PAIGE 9.09 mls/hr Administration Protocol 0.03 UNITS/MIN Phenylephrine HCl 100 mg/ 100 mls @ 3 mls/hr 12/11/21 12:00 12/11/21 12:27 Sodium Chloride IV 50 mcg/min TITR PAIGE 3 mls/hr Administration Protocol 50 MCG/MIN Ondansetron HCl 4 mg 12/10/21 21:37 Ondansetron 4 Mg/2 Ml Inj IV Q8H PRN Nausea And Vomiting Sodium Chloride 10 ml 12/10/21 22:00 12/11/21 10:13 Sodium Chloride 0.9% 10 Ml Flush Syringe IV 10 ml BID PAIGE Administration Sodium Chloride 10 ml 12/10/21 21:37 Sodium Chloride 0.9% 10 Ml Flush Syringe IV PRN PRN LINE FLUSH Nutrition/Malnutrition Assess - Dietary Evaluation Nutrition/Malnutrition Findings: Nutrition Notes Start: 12/11/21 12:02 Freq: Status: Active Protocol: Document 12/11/21 12:04 ARACELI (Rec: 12/11/21 12:16 ARACELI [id number]) Nutrition Notes Need for Assessment generated from: MD Order,MST Initial or Follow up Assessment Other Pertinent Diagnosis Cardiac arrest, anoxic encephalopathy, seizures, hypotension, pneu... 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 Weight Status Obese Subjective/Other Information RD consult for malnutrition screening tool score 2 (Unsure wt loss / no decreased appetite) per MD. Pt mechanically ventilated w/ O2 Saturation 93% per physical assessment notes and receiving 2 pressors at this time. Visited and spoke with family who was unable to provide information regarding UBW or wt loss. Family reported pt usually consumed dinner meals. Contact for daughter was provided - but unable to reach in attempt. RN reported no plans of feeding at this time d/t anoxic encephalopathy. Nutrition supplements removed from orders d/t NPO status. Physical assessment reviewed. Will continue to monitor and follow-up per protocol. Burn Absent Trauma Absent GI Symptoms None Food Allergy No Skin Integrity/Comment Blue/Black fingernails/bruised skin Current % PO Other Minimum of two criteria No Fluid Accumulation N/A Reduced Human Resource Officer Strength N/A (non-severe) Protein-Calorie Malnutrition N\A #1 Nutrition Diagnosis Swallowing difficulty Etiology Mechanical ventilation As Evidenced by Signs and Symptoms No current diet order for pt, but presumed NPO. Is patient on ventilator? Yes Is Patient Ambulatory and/or Out of Bed No REE-(Clarke-St. Jeor-confined to bed) 1771.884 Kcal/Kg value to use for calculation 14 Approximate Energy Requirements Using 1176 kcal/Kg Calculation Used for Recommendations Kcal/kg Additional Notes Estimated energy requirements in relation to pt's overall medical condition. Estimated protein needs: 2.0g/ kg IBW = 105g PRO q day Estimated fluid needs: 1mL/ kcal Nutrition Intervention Nutrition Support: Initiate TF when medically feasible. Goal #1 Pt to advance to enteral nutrition or PO intake within 48-72 hours. Follow-Up By: 12/14/21 Additional Comments Monitor diet advancement and medication administration.
[2021-12-12] MEDS: SODIUM CHLORIDE 0.9% 1000 ML 1,000 ML IV SCH (03:53)
[2021-12-12] MEDS: NORepinephrine/NS 8 MG-250 ML 8 MG/250 ML INFUS..BTL IV SCH ×2 (04:06→10:00)
[2021-12-12 04:54] LABS: ABG Base Excess -11.9 mmol/L (-2.0-3.0); ABG HCO3 13.9 mmol/L (20.0-26.0); ABG Methemoglobin 0.6 % (0.0-1.5); ABG Oxygen Saturation 96.7 % (95.0-99.0); ABG PCO2 31.9 mm Hg; ABG PH 7.257 pH Units (7.350-7.450); ABG PO2 90.4 mm Hg (80.0-90.0)
[2021-12-12 04:57] LABS: Hematocrit 42.8 % (30.3-42.9); Hemoglobin 13.5 gm/dl (10.1-14.3); Mean Corpuscular HGB Conc 32 % (30-34); Mean Corpuscular Volume 95 fl (79-97); Platelet Count 117 K/mm3 (140-440); Red Blood Count 4.49 M/mm3 (3.65-5.03); Red Cell Distribution Width 17.7 % (13.2-15.2)
[2021-12-12] MEDS: CEFEPIME/NS 2 GM/100 ML 2 GM/100 ML BAG IV SCH (05:03)
[2021-12-12 05:14] LABS: Calcium 6.8 mg/dL (8.4-10.2)
[2021-12-12] MEDS: VASOPRESSIN 20 UNIT in SODIUM CHLORIDE 0.9% 100 ML IV SCH ×3 (08:53→23:05)
[2021-12-12] MEDS: HEPARIN 5,000 UNIT/1 ML VIAL SUB-Q SCH ×2 (10:00→21:27)
[2021-12-12] MEDS ORDERED: LACTATED RINGERS 1,000 ML IV ONE (10:00)
--- NOTE | 2021-12-12 11:46 | Progress Note ---
<CAROLAETHANJuan Jose - Last Filed: 12/12/21 12:03> Assessment and Plan Assessment and plan: This is a 41-year-old female with seizure disorder and nicotine abuse admitted s/p cardiac arrest with acute hypoxic respiratory failure Neuro: Anoxic brain injury -CT C-spine showed no indication of cervical fracture, subluxation or significant degenerative change -CT head shows loss of new/white differentiation and diffuse mass-effect with effacement of cortical sulci and basilar cisterns, findings indicate the presence of severe global anoxic injury involving both cerebral hemispheres and cerebellar hemispheres. -Neurology consulted, appreciate recommendations -No cough/gag, no pupillary response, pupils dilated Cardiac: S/p cardiac arrest -Per EMS she received 4 rounds of epinephrine, 1 amp of bicarb, 1 calcium connate, amiodarone 200 mg and Narcan 2 mg and was defibrillated 1 time, achievement of ROSC x3 -Suffered another cardiac arrest in the emergency department with ROSC after 5 minutes -Stat echocardiogram pending -Blood pressure monitoring per protocol -Vasopressor support with Levophed and vasopressin -MAP goal greater than 65 Respiratory: Acute hypoxic respiratory failure -CCM consulted, appreciate recommendations -Intubated on 7.0 ETT at 21 cm of the right lip -A.m. vent settings: Assist-control rate 20, tidal volume 450, FiO2 45%, PEEP 8 -See RT notes for titration -A.m. ABG and CXR noted -VAP bundle -SPO2 monitoring GI: Transaminitis, moderate protein calorie malnutrition, obesity -24 hours + 2072 ml -PPI -NPO for pressor requirements : Acute kidney injury secondary to vasomotor nephropathy, metabolic acidosis -monitor intake and output -Renally dose medications -Avoid nephrotoxic medications ID: SIRS (POA) -presented with tachycardia, febrile illness, leukocytosis -Antibiotic therapy with cefepime, vancomycin -f/u blood culture -Monitor WBC and temperature curve Endo: NAD -Avoid hypoglycemia Heme: Leukocytosis -Trend CBC -Transfuse hemoglobin less than 7 -SCDs to BLE while in bed The high probability of a clinically significant, sudden or life threatening deterioration of the [multi] system(s) required my full and direct attention, intervention and personal management. The aggregate critical care time was [60] minutes. This time is in addition to time spent performing reported procedures but includes the following: [x] Data Review and interpretation [x] Patient assessment and monitoring of vital signs [x] Documentation [x] Medication orders and management Disposition Plan: icu Total Time Spent with Patient (Minutes): 60 History Interval history: This is a 41-year-old female with seizure disorder and smoker who presented to the emergency department via EMS after being found in cardiac arrest. 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 ACLS was initiated and the patient was intubated using a Kristian airway and ROSC was achieved 3 times with the last just prior to arrival to the ED and was defibrillated once. She did receive 4 rounds of epinephrine, 1 amp of bicarbonate, 1 calcium, amiodarone 300mg and 2 mg of Narcan by EMS. Upon arrival to the emergency department patient was intubated and was found to be in asystole and ACLS protocols were continued with eventual ROSC after 5 minutes. Patient was also started on a dopamine drip in the ED. Patient was admitted to the hospitalist service with consults to [facility] s/p cardiac arrest with acute hypoxic respiratory failure, lactic acidosis, hypokalemia, metabolic acidosis. Hospital course to date: 12/11: Morning lab work showed worsening renal function with transaminitis and resolution of leukocytosis. Family at bedside. Patient maxed on Levophed and started on vasopressin. Stat echocardiogram ordered with a neurology consult. 12/12: Worsening renal function. Given 1 liter LR bolus. Remains on levophed and vaso drip was restarted this morning. Echo pending. Hospitalist Physical - Constitutional Vitals: Temp Pulse Resp BP Pulse Ox 98.8 F 87 20 118/72 97 12/12/21 08:00 12/12/21 11:27 12/12/21 11:15 12/12/21 11:27 12/12/21 11:27 General appearance: Present: no acute distress, well-nourished - EENT Eyes: Absent: PERRL, EOM intact ENT: dentition normal - Neck Neck: Absent: masses or JVD, cervical LAD - Respiratory Respiratory effort: normal Respiratory: bilateral: diminished - Cardiovascular Rhythm: regular Heart Sounds: Present: S1 & S2. Absent: systolic murmur, diastolic murmur - Extremities Extremities: no ischemia, pulses intact, pulses symmetrical Peripheral Pulses: within normal limits - Abdominal General gastrointestinal: soft, normal bowel sounds - Integumentary Integumentary: Present: warm, dry - Psychiatric Psychiatric: other - Neurologic Neurologic: other (no cough/gag, pupils not reactive to light) - Allied Health Allied health notes reviewed: nursing, RT HEART Score - HEART Score Age: < 45 Risk factors: 1-2 risk factors Troponin: Troponin T < 0.010 ng/mL (0.00-0.029) 12/10/21 13:46 Troponin: < normal limit - Critical Actions Critical Actions: 0-3 pts:0.9-1.7%risk of adverse cardiac event.Candidate for discharge Results - Labs CBC & Chem 7: 12/12/21 04:36 12/12/21 04:36 Labs: Laboratory Last Values WBC 18.4 K/mm3 (4.5-11.0) H 12/12/21 04:36 RBC 4.49 M/mm3 (3.65-5.03) 12/12/21 04:36 Hgb 13.5 gm/dl (10.1-14.3) 12/12/21 04:36 Hct 42.8 % (30.3-42.9) 12/12/21 04:36 MCV 95 fl (79-97) 12/12/21 04:36 MCH 30 pg (28-32) 12/12/21 04:36 MCHC 32 % (30-34) 12/12/21 04:36 RDW 17.7 % (13.2-15.2) H 12/12/21 04:36 Plt Count 117 K/mm3 (140-440) L 12/12/21 04:36 Lymph % (Auto) 8.0 % (13.4-35.0) L 12/11/21 04:22 [place] % (Auto) 4.1 % (0.0-7.3) 12/11/21 04:22 Eos % (Auto) 0.1 % (0.0-4.3) 12/11/21 04:22 Baso % (Auto) 0.2 % (0.0-1.8) 12/11/21 04:22 Lymph # (Auto) 0.8 K/mm3 (1.2-5.4) L 12/11/21 04:22 [place] # (Auto) 0.4 K/mm3 (0.0-0.8) 12/11/21 04:22 Eos # (Auto) 0.0 K/mm3 (0.0-0.4) 12/11/21 04:22 Baso # (Auto) 0.0 K/mm3 (0.0-0.1) 12/11/21 04:22 Add Manual Diff Complete 12/10/21 13:46 Total Counted 100 12/10/21 13:46 Seg Neutrophils % 87.6 % (40.0-70.0) H 12/11/21 04:22 Seg Neuts % (Manual) 71.0 % (40.0-70.0) H 12/10/21 13:46 Band Neutrophils % 0 % 12/10/21 13:46 Lymphocytes % (Manual) 25.0 % (13.4-35.0) 12/10/21 13:46 Reactive Lymphs % (Man) 0 % 12/10/21 13:46 Monocytes % (Manual) 3.0 % (0.0-7.3) 12/10/21 13:46 Eosinophils % (Manual) 0 % (0.0-4.3) 12/10/21 13:46 Basophils % (Manual) 0 % (0.0-1.8) 12/10/21 13:46 Metamyelocytes % 0 % 12/10/21 13:46 Myelocytes % 1.0 % 12/10/21 13:46 Promyelocytes % 0 % 12/10/21 13:46 Blast Cells % 0 % 12/10/21 13:46 Nucleated RBC % Not Reportable 12/10/21 13:46 Seg Neutrophils # 9.1 K/mm3 (1.8-7.7) H 12/11/21 04:22 Seg Neutrophils # Man 9.2 K/mm3 (1.8-7.7) H 12/10/21 13:46 Band Neutrophils # 0.0 K/mm3 12/10/21 13:46 Lymphocytes # (Manual) 3.3 K/mm3 (1.2-5.4) 12/10/21 13:46 Abs React Lymphs (Man) 0.0 K/mm3 12/10/21 13:46 Monocytes # (Manual) 0.4 K/mm3 (0.0-0.8) 12/10/21 13:46 Eosinophils # (Manual) 0.0 K/mm3 (0.0-0.4) 12/10/21 13:46 Basophils # (Manual) 0.0 K/mm3 (0.0-0.1) 12/10/21 13:46 Metamyelocytes # 0.0 K/mm3 12/10/21 13:46 Myelocytes # 0.1 K/mm3 12/10/21 13:46 Promyelocytes # 0.0 K/mm3 12/10/21 13:46 Blast Cells # 0.0 K/mm3 12/10/21 13:46 WBC Morphology Not Reportable 12/10/21 13:46 Hypersegmented Neuts Not Reportable 12/10/21 13:46 Hyposegmented Neuts Not Reportable 12/10/21 13:46 Hypogranular Neuts Not Reportable 12/10/21 13:46 Smudge Cells Not Reportable 12/10/21 13:46 Toxic Granulation Not Reportable 12/10/21 13:46 Toxic Vacuolation Not Reportable 12/10/21 13:46 Dohle Bodies Not Reportable 12/10/21 13:46 Pelger-Huet Anomaly Not Reportable 12/10/21 13:46 Renny Rods Not Reportable 12/10/21 13:46 Platelet Estimate Consistent w auto 12/10/21 13:46 Clumped Platelets Not Reportable 12/10/21 13:46 Plt Clumps, EDTA Not Reportable 12/10/21 13:46 Large Platelets Not Reportable 12/10/21 13:46 Giant Platelets Not Reportable 12/10/21 13:46 Platelet Satelliting Not Reportable 12/10/21 13:46 Plt Morphology Comment Not Reportable 12/10/21 13:46 RBC Morphology Normal 12/10/21 13:46 Dimorphic RBCs Not Reportable 12/10/21 13:46 Polychromasia Not Reportable 12/10/21 13:46 Hypochromasia Not Reportable 12/10/21 13:46 Poikilocytosis Not Reportable 12/10/21 13:46 Anisocytosis Not Reportable 12/10/21 13:46 Microcytosis Not Reportable 12/10/21 13:46 Macrocytosis Not Reportable 12/10/21 13:46 Spherocytes Not Reportable 12/10/21 13:46 Pappenheimer Bodies Not Reportable 12/10/21 13:46 Sickle Cells Not Reportable 12/10/21 13:46 Target Cells Not Reportable 12/10/21 13:46 Tear Drop Cells Not Reportable 12/10/21 13:46 Ovalocytes Not Reportable 12/10/21 13:46 Helmet Cells Not Reportable 12/10/21 13:46 [place] Bodies Not Reportable 12/10/21 13:46 Benton Rings Not Reportable 12/10/21 13:46 Cade Cells Not Reportable 12/10/21 13:46 Bite Cells Not Reportable 12/10/21 13:46 Crenated Cell Not Reportable 12/10/21 13:46 Elliptocytes Not Reportable 12/10/21 13:46 Acanthocytes (Spur) Not Reportable 12/10/21 13:46 Rouleaux Not Reportable 12/10/21 13:46 Hemoglobin C Crystals Not Reportable 12/10/21 13:46 Schistocytes Not Reportable 12/10/21 13:46 Malaria parasites Not Reportable 12/10/21 13:46 Pedro Pablo Bodies Not Reportable 12/10/21 13:46 Hem Pathologist Commnt No 12/10/21 13:46 ABG pH 7.257 pH Units (7.350-7.450) L 12/12/21 04:30 ABG pCO2 31.9 mm Hg 12/12/21 04:30 ABG pO2 90.4 mm Hg (80.0-90.0) H 12/12/21 04:30 ABG HCO3 13.9 mmol/L (20.0-26.0) L 12/12/21 04:30 ABG O2 Saturation 96.7 % (95.0-99.0) 12/12/21 04:30 ABG O2 Content 18.3 (0.0-44) 12/12/21 04:30 ABG Base Excess -11.9 mmol/L (-2.0-3.0) L 12/12/21 04:30 ABG Hemoglobin 13.6 gm/dl (12.0-16.0) 12/12/21 04:30 ABG Carboxyhemoglobin 1.1 % (0.0-5.0) 12/12/21 04:30 ABG Methemoglobin 0.6 % (0.0-1.5) 12/12/21 04:30 VBG pH 6.888 (7.320-7.420) L* 12/10/21 14:12 Oxyhemoglobin 95.0 % (95.0-99.0) 12/12/21 04:30 FiO2 45 % 12/12/21 04:30 Sodium 138 mmol/L (137-145) 12/12/21 04:36 Potassium 4.7 mmol/L (3.6-5.0) D 12/12/21 04:36 Chloride 106.1 mmol/L (98-107) 12/12/21 04:36 Carbon Dioxide 11 mmol/L (22-30) L D 12/12/21 04:36 Anion Gap 26 mmol/L 12/12/21 04:36 BUN 43 mg/dL (7-17) H 12/12/21 04:36 Creatinine 5.0 mg/dL (0.6-1.2) H D 12/12/21 04:36 Estimated GFR 12 ml/min 12/12/21 04:36 BUN/Creatinine Ratio 9 % 12/12/21 04:36 Glucose 160 mg/dL (65-100) H 12/12/21 04:36 POC Glucose 139 mg/dL (70-105) H 12/11/21 23:48 Lactic Acid 1.70 mmol/L (0.7-2.0) 12/11/21 Unknown Calcium 6.8 mg/dL (8.4-10.2) L 12/12/21 04:36 Magnesium 2.30 mg/dL (1.7-2.3) 12/10/21 13:46 Total Bilirubin 0.40 mg/dL (0.1-1.2) 12/11/21 04:00 AST 319 units/L (5-40) H 12/11/21 04:00 ALT 123 units/L (7-56) H 12/11/21 04:00 Alkaline Phosphatase 119 units/L (35-129) 12/11/21 04:00 Total Creatine Kinase 170 units/L (30-135) H 12/10/21 13:46 CK-MB (CK-2) 1.4 ng/mL (0.0-4.0) 12/10/21 13:46 CK-MB (CK-2) Rel Index 0.8 (0-4) 12/10/21 13:46 Troponin T < 0.010 ng/mL (0.00-0.029) 12/10/21 13:46 Total Protein 5.7 g/dL (6.3-8.2) L 12/11/21 04:00 Albumin 3.4 g/dL (3.9-5) L 12/11/21 04:00 Albumin/Globulin Ratio 1.5 % 12/11/21 04:00 TSH 3.160 mlU/mL (0.270-4.200) 12/10/21 14:12 Free T4 0.70 ng/dL (0.76-1.46) L 12/10/21 14:12 HCG, Qual Negative (Negative) 12/10/21 13:46 Urine Color Yellow (Yellow) 12/10/21 14:21 Urine Turbidity Slightly cloudy (Clear) 12/10/21 14:21 Specific [place] (Man) 1.010 (1.003-1.030) 12/10/21 14:21 Ur Protein (Man) Negative mg/dL (Negative) 12/10/21 14:21 Ur Ketones (Man) Negative (Negative) 12/10/21 14:21 Ur Nitrite (Man) Negative (Negative) 12/10/21 14:21 Ur Reducing Substances Not Reportable 12/10/21 14:21 Urine Bilirubin (Man) Negative (Negative) 12/10/21 14:21 Urine Ictotest Not Reportable 12/10/21 14:21 Leukocyte Esterase (Man) Negative (Negative) 12/10/21 14:21 Urine WBC (Auto) 125.0 /HPF (0.0-6.0) H 12/10/21 14:21 Urine RBC (Auto) 14.0 /HPF (0.0-6.0) 12/10/21 14:21 U Epithel Cells (Auto) 7.0 /HPF (0-13.0) 12/10/21 14:21 Urine Bacteria (Auto) 2+ /HPF (Negative) 12/10/21 14:21 Urine RBC (Manual) 2+ (Negative) 12/10/21 14:21 Urine Mucus Few /HPF 12/10/21 14:21 Random Vancomycin 19.5 ug/mL (0-40.0) 12/12/21 04:36 Urine Opiates Screen Negative 12/10/21 14:21 Urine Methadone Screen Negative 12/10/21 14:21 Ur Barbiturates Screen Negative 12/10/21 14:21 Ur Phencyclidine Scrn Negative 12/10/21 14:21 Ur Amphetamines Screen Negative 12/10/21 14:21 U Benzodiazepines Scrn Negative 12/10/21 14:21 Urine Cocaine Screen Negative 12/10/21 14:21 U Marijuana (THC) Screen Negative 12/10/21 14:21 Drugs of Abuse Note Disclamer 12/10/21 14:21 Plasma/Serum Alcohol < 0.01 % (0-0.07) 12/10/21 13:46 Microbiology: Microbiology 12/11/21 07:53 Peripheral/Venous Blood Culture - Preliminary NO GROWTH AFTER 24 HOURS 12/10/21 16:10 Tracheal Aspirate Sputum Culture - Final Steven/IV: Voiding Method Indwelling Catheter Active Medications - Current Medications Current Medications: Generic Name Dose Route Start Last Admin Trade Name Freq PRN Reason Stop Dose Admin Acetaminophen 650 mg 12/10/21 21:37 12/11/21 20:36 Acetaminophen 325 Mg Tab PO 650 mg Q4H PRN Administration Pain MILD(1-3)/Fever >100.5/WEBB Heparin Sodium (Porcine) 5,000 unit 12/10/21 22:00 12/12/21 10:00 Heparin 5,000 Unit/1 Ml Vial SUB-Q 5,000 unit Q12HR PAIGE Administration NORepinephrine/NS 8 MG-250 ML 8 mg in 250 mls @ 11.25 mls/hr 12/10/21 15:00 12/12/21 10:43 Norepinephrine/Ns 8 Mg-250 Ml (Double Conc) IV 16 mcg/min TITRATE PAIGE 30 mls/hr Titration Protocol 6 MCG/MIN Sodium Chloride 1,000 mls @ 75 mls/hr 12/10/21 21:45 12/12/21 03:53 Nacl 0.9% 1000 Ml IV 75 mls/hr DIRECT PAIGE Administration Cefepime HCl 2 gm in 100 mls @ 200 mls/hr 12/12/21 06:00 12/12/21 05:33 Cefepime/Ns 2 Gm/100 Ml IV Infused Q24H PAIGE Infusion Protocol Vasopressin 20 unit/ Sodium 101 mls @ 9.09 mls/hr 12/11/21 09:00 12/12/21 10:02 Chloride IV 0.03 units/min TITR PAIGE 9.09 mls/hr Administration Protocol 0.03 UNITS/MIN Phenylephrine HCl 100 mg/ 100 mls @ 3 mls/hr 12/11/21 12:00 12/12/21 03:00 Sodium Chloride IV 0 mcg/min TITR PAIGE 0 mls/hr Titration Protocol 50 MCG/MIN Ondansetron HCl 4 mg 12/10/21 21:37 Ondansetron 4 Mg/2 Ml Inj IV Q8H PRN Nausea And Vomiting Sodium Chloride 10 ml 12/10/21 22:00 12/12/21 10:01 Sodium Chloride 0.9% 10 Ml Flush Syringe IV 10 ml BID PAIGE Administration Sodium Chloride 10 ml 12/10/21 21:37 Sodium Chloride 0.9% 10 Ml Flush Syringe IV PRN PRN LINE FLUSH Nutrition/Malnutrition Assess - Dietary Evaluation Nutrition/Malnutrition Findings: Nutrition Notes Start: 12/11/21 12:02 Freq: Status: Active Protocol: Document 12/11/21 12:04 ARACELI (Rec: 12/11/21 12:16 [facility] [id number]) Nutrition Notes Need for Assessment generated from: MD Order,MST Initial or Follow up Assessment Other Pertinent Diagnosis Cardiac arrest, anoxic encephalopathy, seizures, hypotension, pneu... 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 Weight Status Obese Subjective/Other Information RD consult for malnutrition screening tool score 2 (Unsure wt loss / no decreased appetite) per MD. Pt mechanically ventilated w/ O2 Saturation 93% per physical assessment notes and receiving 2 pressors at this time. Visited and spoke with family who was unable to provide information regarding UBW or wt loss. Family reported pt usually consumed dinner meals. Contact for daughter was provided - but unable to reach in attempt. RN reported no plans of feeding at this time d/t anoxic encephalopathy. Nutrition supplements removed from orders d/t NPO status. Physical assessment reviewed. Will continue to monitor and follow-up per protocol. Burn Absent Trauma Absent GI Symptoms None Food Allergy No Skin Integrity/Comment Blue/Black fingernails/bruised skin Current % PO Other Minimum of two criteria No Fluid Accumulation N/A Reduced Bench Technician Strength N/A (non-severe) Protein-Calorie Malnutrition N\A #1 Nutrition Diagnosis Swallowing difficulty Etiology Mechanical ventilation As Evidenced by Signs and Symptoms No current diet order for pt, but presumed NPO. Is patient on ventilator? Yes Is Patient Ambulatory and/or Out of Bed No REE-([place]-confined to bed) 1771.884 Kcal/Kg value to use for calculation 14 Approximate Energy Requirements Using 1176 kcal/Kg Calculation Used for Recommendations Kcal/kg Additional Notes Estimated energy requirements in relation to pt's overall medical condition. Estimated protein needs: 2.0g/ kg IBW = 105g PRO q day Estimated fluid needs: 1mL/ kcal Nutrition Intervention Nutrition Support: Initiate TF when medically feasible. Goal #1 Pt to advance to enteral nutrition or PO intake within 48-72 hours. Follow-Up By: 12/14/21 Additional Comments Monitor diet advancement and medication administration. <DANIEL BECERRA - Last Filed: 12/21/21 08:20> History Interval history: I saw and evaluated the patient. Discussed with the nurse practitioner and agree with their findings and plan as documented in this note. Hospitalist Physical - Constitutional Vitals: Temp Pulse Resp BP Pulse Ox 97.9 F 67 16 110/71 99 12/15/21 00:00 12/15/21 00:00 12/15/21 00:00 12/14/21 23:46 12/15/21 00:10 HEART Score - HEART Score Troponin: Troponin T < 0.010 ng/mL (0.00-0.029) 12/10/21 13:46 Results - Labs CBC & Chem 7: 12/14/21 04:27 12/14/21 21:10 Labs: Laboratory Last Values WBC 14.6 K/mm3 (4.5-11.0) H 12/14/21 04:27 RBC 3.51 M/mm3 (3.65-5.03) L 12/14/21 04:27 Hgb 10.7 gm/dl (10.1-14.3) 12/14/21 04:27 Hct 32.6 % (30.3-42.9) 12/14/21 04:27 MCV 93 fl (79-97) 12/14/21 04:27 MCH 30 pg (28-32) 12/14/21 04:27 MCHC 33 % (30-34) 12/14/21 04:27 RDW 17.9 % (13.2-15.2) H 12/14/21 04:27 Plt Count 67 K/mm3 (140-440) L 12/14/21 04:27 Lymph % (Auto) 8.0 % (13.4-35.0) L 12/11/21 04:22 [place] % (Auto) 4.1 % (0.0-7.3) 12/11/21 04:22 Eos % (Auto) 0.1 % (0.0-4.3) 12/11/21 04:22 Baso % (Auto) 0.2 % (0.0-1.8) 12/11/21 04:22 Lymph # (Auto) 0.8 K/mm3 (1.2-5.4) L 12/11/21 04:22 [place] # (Auto) 0.4 K/mm3 (0.0-0.8) 12/11/21 04:22 Eos # (Auto) 0.0 K/mm3 (0.0-0.4) 12/11/21 04:22 Baso # (Auto) 0.0 K/mm3 (0.0-0.1) 12/11/21 04:22 Add Manual Diff Complete 12/10/21 13:46 Total Counted 100 12/10/21 13:46 Seg Neutrophils % 87.6 % (40.0-70.0) H 12/11/21 04:22 Seg Neuts % (Manual) 71.0 % (40.0-70.0) H 12/10/21 13:46 Band Neutrophils % 0 % 12/10/21 13:46 Lymphocytes % (Manual) 25.0 % (13.4-35.0) 12/10/21 13:46 Reactive Lymphs % (Man) 0 % 12/10/21 13:46 Monocytes % (Manual) 3.0 % (0.0-7.3) 12/10/21 13:46 Eosinophils % (Manual) 0 % (0.0-4.3) 12/10/21 13:46 Basophils % (Manual) 0 % (0.0-1.8) 12/10/21 13:46 Metamyelocytes % 0 % 12/10/21 13:46 Myelocytes % 1.0 % 12/10/21 13:46 Promyelocytes % 0 % 12/10/21 13:46 Blast Cells % 0 % 12/10/21 13:46 Nucleated RBC % Not Reportable 12/10/21 13:46 Seg Neutrophils # 9.1 K/mm3 (1.8-7.7) H 12/11/21 04:22 Seg Neutrophils # Man 9.2 K/mm3 (1.8-7.7) H 12/10/21 13:46 Band Neutrophils # 0.0 K/mm3 12/10/21 13:46 Lymphocytes # (Manual) 3.3 K/mm3 (1.2-5.4) 12/10/21 13:46 Abs React Lymphs (Man) 0.0 K/mm3 12/10/21 13:46 Monocytes # (Manual) 0.4 K/mm3 (0.0-0.8) 12/10/21 13:46 Eosinophils # (Manual) 0.0 K/mm3 (0.0-0.4) 12/10/21 13:46 Basophils # (Manual) 0.0 K/mm3 (0.0-0.1) 12/10/21 13:46 Metamyelocytes # 0.0 K/mm3 12/10/21 13:46 Myelocytes # 0.1 K/mm3 12/10/21 13:46 Promyelocytes # 0.0 K/mm3 12/10/21 13:46 Blast Cells # 0.0 K/mm3 12/10/21 13:46 WBC Morphology Not Reportable 12/10/21 13:46 Hypersegmented Neuts Not Reportable 12/10/21 13:46 Hyposegmented Neuts Not Reportable 12/10/21 13:46 Hypogranular Neuts Not Reportable 12/10/21 13:46 Smudge Cells Not Reportable 12/10/21 13:46 Toxic Granulation Not Reportable 12/10/21 13:46 Toxic Vacuolation Not Reportable 12/10/21 13:46 Dohle Bodies Not Reportable 12/10/21 13:46 Pelger-Huet Anomaly Not Reportable 12/10/21 13:46 Renny Rods Not Reportable 12/10/21 13:46 Platelet Estimate Consistent w auto 12/10/21 13:46 Clumped Platelets Not Reportable 12/10/21 13:46 Plt Clumps, EDTA Not Reportable 12/10/21 13:46 Large Platelets Not Reportable 12/10/21 13:46 Giant Platelets Not Reportable 12/10/21 13:46 Platelet Satelliting Not Reportable 12/10/21 13:46 Plt Morphology Comment Not Reportable 12/10/21 13:46 RBC Morphology Normal 12/10/21 13:46 Dimorphic RBCs Not Reportable 12/10/21 13:46 Polychromasia Not Reportable 12/10/21 13:46 Hypochromasia Not Reportable 12/10/21 13:46 Poikilocytosis Not Reportable 12/10/21 13:46 Anisocytosis Not Reportable 12/10/21 13:46 Microcytosis Not Reportable 12/10/21 13:46 Macrocytosis Not Reportable 12/10/21 13:46 Spherocytes Not Reportable 12/10/21 13:46 Pappenheimer Bodies Not Reportable 12/10/21 13:46 Sickle Cells Not Reportable 12/10/21 13:46 Target Cells Not Reportable 12/10/21 13:46 Tear Drop Cells Not Reportable 12/10/21 13:46 Ovalocytes Not Reportable 12/10/21 13:46 Helmet Cells Not Reportable 12/10/21 13:46 [place] Bodies Not Reportable 12/10/21 13:46 [place] Rings Not Reportable 12/10/21 13:46 [place]vin Cells Not Reportable 12/10/21 13:46 Bite Cells Not Reportable 12/10/21 13:46 Crenated Cell Not Reportable 12/10/21 13:46 Elliptocytes Not Reportable 12/10/21 13:46 Acanthocytes (Spur) Not Reportable 12/10/21 13:46 Rouleaux Not Reportable 12/10/21 13:46 Hemoglobin C Crystals Not Reportable 12/10/21 13:46 Schistocytes Not Reportable 12/10/21 13:46 Malaria parasites Not Reportable 12/10/21 13:46 [place] Bodies Not Reportable 12/10/21 13:46 Hem Pathologist Commnt No 12/10/21 13:46 ABG pH 7.334 pH Units (7.350-7.450) L 12/14/21 20:10 ABG pCO2 33.6 mm Hg 12/14/21 20:10 ABG pO2 134.0 mm Hg (80.0-90.0) H 12/14/21 20:10 ABG HCO3 17.5 mmol/L (20.0-26.0) L 12/14/21 20:10 ABG O2 Saturation 98.5 % (95.0-99.0) 12/14/21 20:10 ABG O2 Content 14.9 (0.0-44) 12/14/21 20:10 ABG Base Excess -7.5 mmol/L (-2.0-3.0) L 12/14/21 20:10 ABG Hemoglobin 10.8 gm/dl (12.0-16.0) L 12/14/21 20:10 ABG Carboxyhemoglobin 1.3 % (0.0-5.0) 12/14/21 20:10 ABG Methemoglobin 0.4 % (0.0-1.5) 12/14/21 20:10 VBG pH 6.888 (7.320-7.420) L* 12/10/21 14:12 Oxyhemoglobin 96.8 % (95.0-99.0) 12/14/21 20:10 FiO2 40 % 12/14/21 20:10 Sodium 148 mmol/L (137-145) H 12/14/21 21:10 Potassium 3.8 mmol/L (3.6-5.0) 12/14/21 21:10 Chloride 117.1 mmol/L (98-107) H 12/14/21 21:10 Carbon Dioxide 14 mmol/L (22-30) L D 12/14/21 21:10 Anion Gap 21 mmol/L 12/14/21 21:10 BUN 81 mg/dL (7-17) H 12/14/21 21:10 Creatinine 4.4 mg/dL (0.6-1.2) H 12/14/21 21:10 Estimated GFR 13 ml/min 12/14/21 21:10 BUN/Creatinine Ratio 18 % 12/14/21 21:10 Glucose 143 mg/dL (65-100) H 12/14/21 21:10 POC Glucose 123 mg/dL (70-105) H 12/14/21 11:11 Lactic Acid 1.70 mmol/L (0.7-2.0) 12/11/21 Unknown Calcium 7.8 mg/dL (8.4-10.2) L 12/14/21 21:10 Phosphorus 3.70 mg/dL (2.5-4.5) 12/14/21 04:27 Magnesium 1.70 mg/dL (1.7-2.3) 12/14/21 04:27 Total Bilirubin 0.20 mg/dL (0.1-1.2) 12/14/21 04:27 AST 57 units/L (5-40) H 12/14/21 04:27 ALT 103 units/L (7-56) H 12/14/21 04:27 Alkaline Phosphatase 129 units/L (35-129) 12/14/21 04:27 Total Creatine Kinase 170 units/L (30-135) H 12/10/21 13:46 CK-MB (CK-2) 1.4 ng/mL (0.0-4.0) 12/10/21 13:46 CK-MB (CK-2) Rel Index 0.8 (0-4) 12/10/21 13:46 Troponin T < 0.010 ng/mL (0.00-0.029) 12/10/21 13:46 Total Protein 4.8 g/dL (6.3-8.2) L 12/14/21 04:27 Albumin 2.5 g/dL (3.9-5) L 12/14/21 04:27 Albumin/Globulin Ratio 1.1 % 12/14/21 04:27 TSH 3.160 mlU/mL (0.270-4.200) 12/10/21 14:12 Free T4 0.70 ng/dL (0.76-1.46) L 12/10/21 14:12 HCG, Qual Negative (Negative) 12/10/21 13:46 Urine Color Yellow (Yellow) 12/10/21 14:21 Urine Turbidity Slightly cloudy (Clear) 12/10/21 14:21 Specific [place] (Man) 1.010 (1.003-1.030) 12/10/21 14:21 Ur Protein (Man) Negative mg/dL (Negative) 12/10/21 14:21 Ur Ketones (Man) Negative (Negative) 12/10/21 14:21 Ur Nitrite (Man) Negative (Negative) 12/10/21 14:21 Ur Reducing Substances Not Reportable 12/10/21 14:21 Urine Bilirubin (Man) Negative (Negative) 12/10/21 14:21 Urine Ictotest Not Reportable 12/10/21 14:21 Leukocyte Esterase (Man) Negative (Negative) 12/10/21 14:21 Urine WBC (Auto) 125.0 /HPF (0.0-6.0) H 12/10/21 14:21 Urine RBC (Auto) 14.0 /HPF (0.0-6.0) 12/10/21 14:21 U Epithel Cells (Auto) 7.0 /HPF (0-13.0) 12/10/21 14:21 Urine Bacteria (Auto) 2+ /HPF (Negative) 12/10/21 14:21 Urine RBC (Manual) 2+ (Negative) 12/10/21 14:21 Urine Mucus Few /HPF 12/10/21 14:21 Random Vancomycin 19.5 ug/mL (0-40.0) 12/12/21 04:36 Urine Opiates Screen Negative 12/10/21 14:21 Urine Methadone Screen Negative 12/10/21 14:21 Ur Barbiturates Screen Negative 12/10/21 14:21 Ur Phencyclidine Scrn Negative 12/10/21 14:21 Ur Amphetamines Screen Negative 12/10/21 14:21 U Benzodiazepines Scrn Negative 12/10/21 14:21 Urine Cocaine Screen Negative 12/10/21 14:21 U Marijuana (THC) Screen Negative 12/10/21 14:21 Drugs of Abuse Note Disclamer 12/10/21 14:21 Plasma/Serum Alcohol < 0.01 % (0-0.07) 12/10/21 13:46 Steven/IV: Voiding Method Indwelling Catheter Nutrition/Malnutrition Assess - Dietary Evaluation Nutrition/Malnutrition Findings: Nutrition Notes Start: 12/11/21 12:02 Freq: Status: Discharge Protocol: Document 12/13/21 15:58 NHALL (Rec: 12/13/21 16:09 [facility] [id number]) Nutrition Notes Need for Assessment generated from: MD Order Initial or Follow up Reassessment Current Diagnosis Acute Kidney Injury, Respiratory Failure Other Pertinent Diagnosis s/p cardiac arrest, anoxic brain injury Current Diet No diet order Labs/Tests BUN 63 Cr 5.3 BG 152 Pertinent Medications Vasopressin gtt Height 5 ft 3 in Weight 84 kg [place] Body Weight (kg) 52.27 BMI 32.8 Intake Prior to Admission Good Weight Status Obese Subjective/Other Information RD consulted for TF. Pt remains on vent support. Burn Absent Trauma Absent #1 Nutrition Diagnosis Swallowing difficulty Diagnosis Progress(for reassessment Continues documentation) Is patient on ventilator? Yes Is Patient Ambulatory and/or Out of Bed No REE-([place]-confined to bed) 1771.884 Kcal/Kg value to use for calculation 15 Approximate Energy Requirements Using 1260 kcal/Kg Calculation Used for Recommendations Kcal/kg Additional Notes Pro needs 0.8-1.2g/kg adjBW: 55-82g/day Fluid needs 1ml/kcal Nutrition Intervention Nutrition Support: Glucerna 1.2 at 45ml/hr with 75ml water flush q4h. Kcal 1,296 Protein (gm) 65 Carbohydrates (gm) 124 Fat (gm) 65 Fluid (mL) 869 Fiber (gm) 17 Goal #1 TF tolerance Goal #2 TF to meet 65-70% energy and at least 75% pro needs Follow-Up By: 12/15/21 Additional Comments F/U: New TF, vent status, renal function
--- NOTE | 2021-12-12 12:17 | Progress Note ---
Assessment and Plan 41 Y/O FEMALE WITH OUT OF HOSPITAL CARDIAC ARREST, UNKNOWN DOWNTIME WITH ROSC FOUND TO HAVE SEVERE ANOXIC BRAIN INJURY, RENAL FAILURE AND CARDIOVASCULAR COLLAPSE 12/12/21: Ok with IV hydration to see if this will improve renal function. Follow up echo report. Overall prognosis is still very very poor. Wean pressors as tolerated. No family present at bedside this morning, but plans for a meeting are in the works. 1. ECHO 2. NEUROLOGY CONSULT 3. SUPPORTIVE CARE 4. GIVEN THE CLINICAL FINDINGS AND IMAGING, LIKELIHOOD OF RECOVERY IS NONE. WILL DISCUSS WITH FAMILY. POOR PROGNOSIS. Subjective Date of service: 12/12/21 Interval history: Clinically no changes. Renal function worsened overnight. UOP has fallen as well. Pressor requirement is down. Echo done but not read yet. Objective Vital Signs - 12hr 12/12/21 12/12/21 12/12/21 00:15 00:30 00:45 Temperature Pulse Rate 86 85 86 Pulse Rate [ From Monitor] Respiratory 20 20 20 Rate Blood Pressure 133/77 137/72 141/79 O2 Sat by Pulse 95 96 96 Oximetry 12/12/21 12/12/21 12/12/21 01:00 01:15 01:30 Temperature Pulse Rate 86 86 86 Pulse Rate [ From Monitor] Respiratory 20 20 20 Rate Blood Pressure 140/76 142/78 145/78 O2 Sat by Pulse 96 96 96 Oximetry 12/12/21 12/12/21 12/12/21 01:45 02:00 02:15 Temperature Pulse Rate 87 87 87 Pulse Rate [ From Monitor] Respiratory 20 20 20 Rate Blood Pressure 150/79 145/82 145/79 O2 Sat by Pulse 96 96 96 Oximetry 12/12/21 12/12/21 12/12/21 02:30 02:45 03:00 Temperature Pulse Rate 89 90 87 Pulse Rate [ From Monitor] Respiratory 20 20 20 Rate Blood Pressure 153/85 158/87 146/79 O2 Sat by Pulse 96 96 95 Oximetry 12/12/21 12/12/21 12/12/21 03:16 03:30 03:45 Temperature Pulse Rate 85 87 86 Pulse Rate [ From Monitor] Respiratory 20 20 20 Rate Blood Pressure 123/68 120/66 115/71 O2 Sat by Pulse 95 95 Oximetry 12/12/21 12/12/21 12/12/21 03:52 04:00 04:15 Temperature 97.7 F 97.7 F Pulse Rate 85 85 Pulse Rate [ 85 From Monitor] Respiratory 20 20 Rate Blood Pressure 106/63 105/59 O2 Sat by Pulse 95 95 Oximetry 12/12/21 12/12/21 12/12/21 04:30 04:42 04:45 Temperature Pulse Rate 85 86 86 Pulse Rate [ From Monitor] Respiratory 20 20 Rate Blood Pressure 97/51 97/51 104/53 O2 Sat by Pulse 94 95 95 Oximetry 12/12/21 12/12/21 12/12/21 05:00 05:15 05:30 Temperature Pulse Rate 83 83 83 Pulse Rate [ From Monitor] Respiratory 20 20 20 Rate Blood Pressure 105/59 93/53 93/53 O2 Sat by Pulse 94 95 Oximetry 12/12/21 12/12/21 12/12/21 05:45 06:00 06:15 Temperature Pulse Rate 85 85 85 Pulse Rate [ From Monitor] Respiratory 20 20 20 Rate Blood Pressure 112/61 115/65 116/67 O2 Sat by Pulse 95 97 Oximetry 12/12/21 12/12/21 12/12/21 06:30 06:45 07:00 Temperature Pulse Rate 85 86 85 Pulse Rate [ From Monitor] Respiratory 20 20 20 Rate Blood Pressure 111/63 111/66 111/66 O2 Sat by Pulse 95 96 97 Oximetry 12/12/21 12/12/21 12/12/21 07:16 07:30 07:45 Temperature Pulse Rate 85 84 86 Pulse Rate [ From Monitor] Respiratory 20 20 20 Rate Blood Pressure 93/47 97/48 94/54 O2 Sat by Pulse 96 98 97 Oximetry 12/12/21 12/12/21 12/12/21 07:56 08:00 08:15 Temperature 98.0 F 98.8 F Pulse Rate 85 87 Pulse Rate [ 85 From Monitor] Respiratory 20 20 Rate Blood Pressure 84/46 95/52 O2 Sat by Pulse 95 96 Oximetry 12/12/21 12/12/21 12/12/21 08:30 08:45 09:00 Temperature Pulse Rate 88 88 88 Pulse Rate [ From Monitor] Respiratory 20 20 20 Rate Blood Pressure 101/54 97/54 110/62 O2 Sat by Pulse 97 97 Oximetry 12/12/21 12/12/21 12/12/21 09:01 09:15 09:30 Temperature Pulse Rate 85 86 85 Pulse Rate [ From Monitor] Respiratory 20 20 Rate Blood Pressure 120/73 84/46 O2 Sat by Pulse 97 100 Oximetry 12/12/21 12/12/21 12/12/21 09:45 10:00 10:15 Temperature Pulse Rate 84 87 87 Pulse Rate [ From Monitor] Respiratory 20 20 20 Rate Blood Pressure 68/40 120/73 117/75 O2 Sat by Pulse 93 96 Oximetry 12/12/21 12/12/21 12/12/21 10:30 10:45 11:00 Temperature Pulse Rate 87 88 88 Pulse Rate [ From Monitor] Respiratory 20 20 20 Rate Blood Pressure 116/74 113/69 118/72 O2 Sat by Pulse 97 98 99 Oximetry 12/12/21 12/12/21 12/12/21 11:15 11:27 11:51 Temperature Pulse Rate 88 87 Pulse Rate [ 87 From Monitor] Respiratory 20 20 Rate Blood Pressure 115/71 118/72 O2 Sat by Pulse 99 97 96 Oximetry 12/12/21 11:58 Temperature 98.5 F Pulse Rate Pulse Rate [ From Monitor] Respiratory Rate Blood Pressure O2 Sat by Pulse Oximetry Constitutional: comatose Eyes: other (PUPILS FIXED AND DILATED) ENT: other (ORALLY INTUBATED, NO COUGH, NO GAG) Neck: supple Effort: normal Ascultation: Bilateral: clear CBC and BMP: 12/12/21 04:36 12/12/21 04:36 ABG, PT/INR, D-dimer: ABG ABG pH 7.257 pH Units (7.350-7.450) L 12/12/21 04:30 ABG pCO2 31.9 mm Hg 12/12/21 04:30 ABG pO2 90.4 mm Hg (80.0-90.0) H 12/12/21 04:30 ABG O2 Saturation 96.7 % (95.0-99.0) 12/12/21 04:30 Abnormal lab findings: Abnormal Labs 12/10/21 12/10/21 12/10/21 13:27 13:46 13:46 WBC 13.0 H Hgb Hct MCV 105 H MCHC 29 L RDW 18.3 H Plt Count Lymph % (Auto) Lymph # (Auto) Seg Neutrophils % Seg Neuts % (Manual) 71.0 H Seg Neutrophils # Seg Neutrophils # Man 9.2 H ABG pH ABG pO2 ABG HCO3 ABG Base Excess ABG Hemoglobin VBG pH Oxyhemoglobin Potassium 3.4 L Chloride 92.6 L Carbon Dioxide 15 L BUN 6 L Creatinine Glucose 349 H POC Glucose 354 H Lactic Acid Calcium 11.2 H AST 76 H ALT Total Creatine Kinase 170 H Total Protein 5.8 L Albumin 3.6 L Free T4 Urine WBC (Auto) 12/10/21 12/10/21 12/10/21 14:12 14:12 14:12 WBC Hgb Hct MCV MCHC RDW Plt Count Lymph % (Auto) Lymph # (Auto) Seg Neutrophils % Seg Neuts % (Manual) Seg Neutrophils # Seg Neutrophils # Man ABG pH ABG pO2 ABG HCO3 ABG Base Excess ABG Hemoglobin VBG pH 6.888 L* Oxyhemoglobin Potassium Chloride Carbon Dioxide BUN Creatinine Glucose POC Glucose Lactic Acid 17.70 H* Calcium AST ALT Total Creatine Kinase Total Protein Albumin Free T4 0.70 L Urine WBC (Auto) 12/10/21 12/10/21 12/10/21 14:21 14:40 15:31 WBC Hgb Hct MCV MCHC RDW Plt Count Lymph % (Auto) Lymph # (Auto) Seg Neutrophils % Seg Neuts % (Manual) Seg Neutrophils # Seg Neutrophils # Man ABG pH 6.969 L* ABG pO2 163.5 H ABG HCO3 16.5 L ABG Base Excess -16.2 L ABG Hemoglobin VBG pH Oxyhemoglobin 94.9 L Potassium Chloride Carbon Dioxide BUN Creatinine Glucose POC Glucose Lactic Acid 11.40 H* Calcium AST ALT Total Creatine Kinase Total Protein Albumin Free T4 Urine WBC (Auto) 125.0 H 12/10/21 12/10/21 12/11/21 16:23 22:54 02:23 WBC Hgb Hct MCV MCHC RDW Plt Count Lymph % (Auto) Lymph # (Auto) Seg Neutrophils % Seg Neuts % (Manual) Seg Neutrophils # Seg Neutrophils # Man ABG pH ABG pO2 ABG HCO3 ABG Base Excess ABG Hemoglobin VBG pH Oxyhemoglobin Potassium Chloride Carbon Dioxide BUN Creatinine Glucose POC Glucose 187 H Lactic Acid 10.30 H* 2.20 H* Calcium AST ALT Total Creatine Kinase Total Protein Albumin Free T4 Urine WBC (Auto) 12/11/21 12/11/21 12/11/21 04:00 04:22 05:47 WBC Hgb 14.7 H Hct 46.1 H MCV MCHC RDW 17.8 H Plt Count Lymph % (Auto) 8.0 L Lymph # (Auto) 0.8 L Seg Neutrophils % 87.6 H Seg Neuts % (Manual) Seg Neutrophils # 9.1 H Seg Neutrophils # Man ABG pH 7.276 L ABG pO2 111.0 H ABG HCO3 15.7 L ABG Base Excess -10.0 L ABG Hemoglobin 16.1 H VBG pH Oxyhemoglobin Potassium Chloride Carbon Dioxide 21 L BUN 23 H Creatinine 3.0 H D Glucose 202 H POC Glucose Lactic Acid Calcium 7.6 L D AST 319 H ALT 123 H Total Creatine Kinase Total Protein 5.7 L Albumin 3.4 L Free T4 Urine WBC (Auto) 12/11/21 12/11/21 12/12/21 06:06 23:48 04:30 WBC Hgb Hct MCV MCHC RDW Plt Count Lymph % (Auto) Lymph # (Auto) Seg Neutrophils % Seg Neuts % (Manual) Seg Neutrophils # Seg Neutrophils # Man ABG pH 7.257 L ABG pO2 90.4 H ABG HCO3 13.9 L ABG Base Excess -11.9 L ABG Hemoglobin VBG pH Oxyhemoglobin Potassium Chloride Carbon Dioxide BUN Creatinine Glucose POC Glucose 189 H 139 H Lactic Acid Calcium AST ALT Total Creatine Kinase Total Protein Albumin Free T4 Urine WBC (Auto) 12/12/21 12/12/21 04:36 04:36 WBC 18.4 H Hgb Hct MCV MCHC RDW 17.7 H Plt Count 117 L Lymph % (Auto) Lymph # (Auto) Seg Neutrophils % Seg Neuts % (Manual) Seg Neutrophils # Seg Neutrophils # Man ABG pH ABG pO2 ABG HCO3 ABG Base Excess ABG Hemoglobin VBG pH Oxyhemoglobin Potassium Chloride Carbon Dioxide 11 L D BUN 43 H Creatinine 5.0 H D Glucose 160 H POC Glucose Lactic Acid Calcium 6.8 L AST ALT Total Creatine Kinase Total Protein Albumin Free T4 Urine WBC (Auto)
[2021-12-13 04:00] LABS: ABG Base Excess -10.4 mmol/L (-2.0-3.0); ABG HCO3 14.4 mmol/L (20.0-26.0); ABG Methemoglobin 0.6 % (0.0-1.5); ABG Oxygen Saturation 98.1 % (95.0-99.0); ABG PCO2 29.2 mm Hg; ABG PH 7.313 pH Units (7.350-7.450)
[2021-12-13 04:47] LABS: Hematocrit 37.7 % (30.3-42.9); Hemoglobin 11.6 gm/dl (10.1-14.3); Mean Corpuscular HGB Conc 31 % (30-34); Mean Corpuscular Volume 94 fl (79-97); Red Cell Distribution Width 18.1 % (13.2-15.2)
[2021-12-13 04:51] LABS: Platelet Count 91 K/mm3 (140-440)
[2021-12-13 05:03] LABS: Calcium 6.4 mg/dL (8.4-10.2)
[2021-12-13] MEDS: CEFEPIME/NS 2 GM/100 ML 2 GM/100 ML BAG IV SCH (05:16)
[2021-12-13] MEDS: HEPARIN 5,000 UNIT/1 ML VIAL SUB-Q SCH ×2 (10:21→22:23)
[2021-12-13] MEDS: FAMOTIDINE 10 MG TAB FEEDTUBE SCH ×2 (10:21→22:25)
--- NOTE | 2021-12-13 11:25 | Progress Note ---
Assessment and Plan Assessment and plan: This is a 41-year old female with known past medical history of seizure disorder and current smoker admitted s/p out-of hospital cardiac arrest with ROSC Hospital course to date: 12/11: Morning lab work showed worsening renal function with transaminitis and resolution of leukocytosis. Family at bedside. Patient maxed on Levophed and started on vasopressin. Stat echocardiogram ordered with a neurology consult. 12/12: Worsening renal function. Given 1 liter LR bolus. Remains on levophed and vaso drip was restarted this morning. Echo pending. 12/13: Remains unresponsive on the vent. Pupils are blown and nonreactive with no gag/cough reflexes. Levophed gtt weaned off, remains on vasopressin. Titrate pressor for MAP above 65. Family meeting today with the attending. Patient's overall condition and poor prognosis were thoroughly discussed. All questions and concerns were addressed. Patient's family is considering withdrawal of care after arrangements made, no consents signed at this time. Assessment and Plan Neuro: Anoxic brain injury -CT C-spine showed no indication of cervical fracture, subluxation or significan t degenerative change -CT head shows loss of new/white differentiation and diffuse mass-effect with effacement of cortical sulci and basilar cisterns, findings indicate the presence of severe global anoxic injury involving both cerebral hemispheres and cerebellar hemispheres. -Neurology consulted, appreciate recommendations -Intubated and unresponsive. No cough/gag, no pupillary response, pupils dilated -PRN Analgesia for CPOT greater than 3 -Seizure precaution -Aspiration precaution Cardiac: S/p cardiac arrest, Systolic Congestive Heart Failure -Found unresponsive at work -Per EMS, patient was found in PEA arrest treated per ACLS protocol -In the ED, patient coded again. Asystole on the monitor, treated per ACLS protocol ROSC aschived after 5 minutes -Echo result noted, LVEF 40-45% -Levophed gtt was weaned off overnight, remains on Vasopressin -Continue blood pressure monitoring per protocol -Titrate pressors for MAP above 65 -Strict I&Os and daily weight Respiratory: Acute Hypoxic Respiratory Failure -CCM consulted, appreciate recommendations -Intubated on admit 12/10 -Vent setting: PRVC-45%,8,16,450 -AM ABG noted -CCM consulted, appreciate recommendations -VAP bundle addressed -Aspiration precaution HOB above 30 -Daily SBT and SAT trials as tolerated -Daily ABG and CXR -Continue SPO2 monitoring for SPO2 goal above 92% GI: Transaminitis, moderate protein calorie malnutrition, obesity -most likely shock liver secondary to cardiac arrest -Continue to trend LFTs -Pressor requirement decreased -Nutrition consulted for TF management : Acute Kidney Injury (NEHA) most likely ATN -secondary to code, hypoperfusion -Baseline renal function is unknown -Renal function worsen this am, still nonoliguric -Plan for possible withdrawal of care, continue current supportive measures -Strict intake and output -Avoid nephrotoxic medications; Renally dose medications -Monitor and replace electrolytes as needed ID: SIRS (POA),Leukocytosis -presented with tachycardia, febrile illness, leukocytosis -S/p Antibiotic therapy with cefepime, vancomycin -f/u blood culture -Monitor WBC and temperature curve GI/DVT Prophylaxis -PPI- Pepcid -Heaprin SubQ -SCDs to bilateral lower extremities while in bed The high probability of a clinically significant, sudden or life threatening deterioration of the [multi] system(s) required my full and direct attention, intervention and personal management. The aggregate critical care time was [60] minutes. This time is in addition to time spent performing reported procedures but includes the following: [x] Data Review and interpretation [x] Patient assessment and monitoring of vital signs [x] Documentation [x] Medication orders and management Disposition Plan: ICU Total Time Spent with Patient (Minutes): 60 History Interval history: Patient seen and examined at the bedside. Intubated and unresponsive, not on any sedations. Pupils are dilated and nonreactive, with no gag/cough reflexes. Remains on Vasopressin. MARILYNN overnight Hospitalist Physical - Constitutional Vitals: Temp Pulse Resp BP Pulse Ox 97.4 F L 73 20 110/71 98 12/13/21 11:23 12/13/21 11:09 12/13/21 11:09 12/13/21 11:00 12/13/21 11:09 General appearance: Present: no acute distress, well-nourished, obese, other (On the vent and unresponsive) - EENT Eyes: Present: irregular pupil, mydriasis (Blown, nonreactive) - Respiratory Respiratory effort: normal Respiratory: bilateral: rhonchi - Cardiovascular Rhythm: regular Heart Sounds: Present: S1 & S2 - Extremities Extremities: no ischemia, pulses intact, pulses symmetrical Extremity abnormal: edema - Peripheral Assessment Generalized Edema Type: Non-pitting Edema Degree: 2+ Capillary Refill: < 3 seconds Skin Temperature: Warm Peripheral Pulses: within normal limits - Abdominal General gastrointestinal: soft, non-distended, normal bowel sounds - Integumentary Integumentary: Present: clear, warm, dry - Psychiatric Psychiatric: other (KEN, unresponsive) - Neurologic Neurologic: focal deficits (Pupils are blown and nonreactive. No gag/cough), other (Intubated and unresponsive, not on any sedations) - Allied Health Allied health notes reviewed: nursing, case management HEART Score - HEART Score Age: < 45 Risk factors: 1-2 risk factors Troponin: Troponin T < 0.010 ng/mL (0.00-0.029) 12/10/21 13:46 Troponin: < normal limit - Critical Actions Critical Actions: 0-3 pts:0.9-1.7%risk of adverse cardiac event.Candidate for discharge Results - Labs CBC & Chem 7: 12/13/21 04:13 12/13/21 04:00 Labs: Laboratory Last Values WBC 13.4 K/mm3 (4.5-11.0) H 12/13/21 04:13 RBC 4.00 M/mm3 (3.65-5.03) 12/13/21 04:13 Hgb 11.6 gm/dl (10.1-14.3) 12/13/21 04:13 Hct 37.7 % (30.3-42.9) 12/13/21 04:13 MCV 94 fl (79-97) 12/13/21 04:13 MCH 29 pg (28-32) 12/13/21 04:13 MCHC 31 % (30-34) 12/13/21 04:13 RDW 18.1 % (13.2-15.2) H 12/13/21 04:13 Plt Count 91 K/mm3 (140-440) L 12/13/21 04:13 Lymph % (Auto) 8.0 % (13.4-35.0) L 12/11/21 04:22 Love % (Auto) 4.1 % (0.0-7.3) 12/11/21 04:22 Eos % (Auto) 0.1 % (0.0-4.3) 12/11/21 04:22 Baso % (Auto) 0.2 % (0.0-1.8) 12/11/21 04:22 Lymph # (Auto) 0.8 K/mm3 (1.2-5.4) L 12/11/21 04:22 Love # (Auto) 0.4 K/mm3 (0.0-0.8) 12/11/21 04:22 Eos # (Auto) 0.0 K/mm3 (0.0-0.4) 12/11/21 04:22 Baso # (Auto) 0.0 K/mm3 (0.0-0.1) 12/11/21 04:22 Add Manual Diff Complete 12/10/21 13:46 Total Counted 100 12/10/21 13:46 Seg Neutrophils % 87.6 % (40.0-70.0) H 12/11/21 04:22 Seg Neuts % (Manual) 71.0 % (40.0-70.0) H 12/10/21 13:46 Band Neutrophils % 0 % 12/10/21 13:46 Lymphocytes % (Manual) 25.0 % (13.4-35.0) 12/10/21 13:46 Reactive Lymphs % (Man) 0 % 12/10/21 13:46 Monocytes % (Manual) 3.0 % (0.0-7.3) 12/10/21 13:46 Eosinophils % (Manual) 0 % (0.0-4.3) 12/10/21 13:46 Basophils % (Manual) 0 % (0.0-1.8) 12/10/21 13:46 Metamyelocytes % 0 % 12/10/21 13:46 Myelocytes % 1.0 % 12/10/21 13:46 Promyelocytes % 0 % 12/10/21 13:46 Blast Cells % 0 % 12/10/21 13:46 Nucleated RBC % Not Reportable 12/10/21 13:46 Seg Neutrophils # 9.1 K/mm3 (1.8-7.7) H 12/11/21 04:22 Seg Neutrophils # Man 9.2 K/mm3 (1.8-7.7) H 12/10/21 13:46 Band Neutrophils # 0.0 K/mm3 12/10/21 13:46 Lymphocytes # (Manual) 3.3 K/mm3 (1.2-5.4) 12/10/21 13:46 Abs React Lymphs (Man) 0.0 K/mm3 12/10/21 13:46 Monocytes # (Manual) 0.4 K/mm3 (0.0-0.8) 12/10/21 13:46 Eosinophils # (Manual) 0.0 K/mm3 (0.0-0.4) 12/10/21 13:46 Basophils # (Manual) 0.0 K/mm3 (0.0-0.1) 12/10/21 13:46 Metamyelocytes # 0.0 K/mm3 12/10/21 13:46 Myelocytes # 0.1 K/mm3 12/10/21 13:46 Promyelocytes # 0.0 K/mm3 12/10/21 13:46 Blast Cells # 0.0 K/mm3 12/10/21 13:46 WBC Morphology Not Reportable 12/10/21 13:46 Hypersegmented Neuts Not Reportable 12/10/21 13:46 Hyposegmented Neuts Not Reportable 12/10/21 13:46 Hypogranular Neuts Not Reportable 12/10/21 13:46 Smudge Cells Not Reportable 12/10/21 13:46 Toxic Granulation Not Reportable 12/10/21 13:46 Toxic Vacuolation Not Reportable 12/10/21 13:46 Dohle Bodies Not Reportable 12/10/21 13:46 Pelger-Huet Anomaly Not Reportable 12/10/21 13:46 Renny Rods Not Reportable 12/10/21 13:46 Platelet Estimate Consistent w auto 12/10/21 13:46 Clumped Platelets Not Reportable 12/10/21 13:46 Plt Clumps, EDTA Not Reportable 12/10/21 13:46 Large Platelets Not Reportable 12/10/21 13:46 Giant Platelets Not Reportable 12/10/21 13:46 Platelet Satelliting Not Reportable 12/10/21 13:46 Plt Morphology Comment Not Reportable 12/10/21 13:46 RBC Morphology Normal 12/10/21 13:46 Dimorphic RBCs Not Reportable 12/10/21 13:46 Polychromasia Not Reportable 12/10/21 13:46 Hypochromasia Not Reportable 12/10/21 13:46 Poikilocytosis Not Reportable 12/10/21 13:46 Anisocytosis Not Reportable 12/10/21 13:46 Microcytosis Not Reportable 12/10/21 13:46 Macrocytosis Not Reportable 12/10/21 13:46 Spherocytes Not Reportable 12/10/21 13:46 Pappenheimer Bodies Not Reportable 12/10/21 13:46 Sickle Cells Not Reportable 12/10/21 13:46 Target Cells Not Reportable 12/10/21 13:46 Tear Drop Cells Not Reportable 12/10/21 13:46 Ovalocytes Not Reportable 12/10/21 13:46 Helmet Cells Not Reportable 12/10/21 13:46 Davison-Argenta Bodies Not Reportable 12/10/21 13:46 [place] Rings Not Reportable 12/10/21 13:46 Melvni Cells Not Reportable 12/10/21 13:46 Bite Cells Not Reportable 12/10/21 13:46 Crenated Cell Not Reportable 12/10/21 13:46 Elliptocytes Not Reportable 12/10/21 13:46 Acanthocytes (Spur) Not Reportable 12/10/21 13:46 Rouleaux Not Reportable 12/10/21 13:46 Hemoglobin C Crystals Not Reportable 12/10/21 13:46 Schistocytes Not Reportable 12/10/21 13:46 Malaria parasites Not Reportable 12/10/21 13:46 Pedro Pablo Bodies Not Reportable 12/10/21 13:46 Hem Pathologist Commnt No 12/10/21 13:46 ABG pH 7.313 pH Units (7.350-7.450) L 12/13/21 03:31 ABG pCO2 29.2 mm Hg 12/13/21 03:31 ABG pO2 117.0 mm Hg (80.0-90.0) H 12/13/21 03:31 ABG HCO3 14.4 mmol/L (20.0-26.0) L 12/13/21 03:31 ABG O2 Saturation 98.1 % (95.0-99.0) 12/13/21 03:31 ABG O2 Content 16.3 (0.0-44) 12/13/21 03:31 ABG Base Excess -10.4 mmol/L (-2.0-3.0) L 12/13/21 03:31 ABG Hemoglobin 11.9 gm/dl (12.0-16.0) L 12/13/21 03:31 ABG Carboxyhemoglobin 1.2 % (0.0-5.0) 12/13/21 03:31 ABG Methemoglobin 0.6 % (0.0-1.5) 12/13/21 03:31 VBG pH 6.888 (7.320-7.420) L* 12/10/21 14:12 Oxyhemoglobin 96.3 % (95.0-99.0) 12/13/21 03:31 FiO2 45 % 12/13/21 03:31 Sodium 143 mmol/L (137-145) 12/13/21 04:00 Potassium 4.2 mmol/L (3.6-5.0) 12/13/21 04:00 Chloride 108.9 mmol/L (98-107) H 12/13/21 04:00 Carbon Dioxide 17 mmol/L (22-30) L 12/13/21 04:00 Anion Gap 21 mmol/L 12/13/21 04:00 BUN 63 mg/dL (7-17) H 12/13/21 04:00 Creatinine 5.3 mg/dL (0.6-1.2) H 12/13/21 04:00 Estimated GFR 11 ml/min 12/13/21 04:00 BUN/Creatinine Ratio 12 % 12/13/21 04:00 Glucose 152 mg/dL (65-100) H 12/13/21 04:00 POC Glucose 123 mg/dL (70-105) H 12/12/21 16:10 Lactic Acid 1.70 mmol/L (0.7-2.0) 12/11/21 Unknown Calcium 6.4 mg/dL (8.4-10.2) L 12/13/21 04:00 Magnesium 2.30 mg/dL (1.7-2.3) 12/10/21 13:46 Total Bilirubin 0.40 mg/dL (0.1-1.2) 12/11/21 04:00 AST 319 units/L (5-40) H 12/11/21 04:00 ALT 123 units/L (7-56) H 12/11/21 04:00 Alkaline Phosphatase 119 units/L (35-129) 12/11/21 04:00 Total Creatine Kinase 170 units/L (30-135) H 12/10/21 13:46 CK-MB (CK-2) 1.4 ng/mL (0.0-4.0) 12/10/21 13:46 CK-MB (CK-2) Rel Index 0.8 (0-4) 12/10/21 13:46 Troponin T < 0.010 ng/mL (0.00-0.029) 12/10/21 13:46 Total Protein 5.7 g/dL (6.3-8.2) L 12/11/21 04:00 Albumin 3.4 g/dL (3.9-5) L 12/11/21 04:00 Albumin/Globulin Ratio 1.5 % 12/11/21 04:00 TSH 3.160 mlU/mL (0.270-4.200) 12/10/21 14:12 Free T4 0.70 ng/dL (0.76-1.46) L 12/10/21 14:12 HCG, Qual Negative (Negative) 12/10/21 13:46 Urine Color Yellow (Yellow) 12/10/21 14:21 Urine Turbidity Slightly cloudy (Clear) 12/10/21 14:21 Specific [place] (Man) 1.010 (1.003-1.030) 12/10/21 14:21 Ur Protein (Man) Negative mg/dL (Negative) 12/10/21 14:21 Ur Ketones (Man) Negative (Negative) 12/10/21 14:21 Ur Nitrite (Man) Negative (Negative) 12/10/21 14:21 Ur Reducing Substances Not Reportable 12/10/21 14:21 Urine Bilirubin (Man) Negative (Negative) 12/10/21 14:21 Urine Ictotest Not Reportable 12/10/21 14:21 Leukocyte Esterase (Man) Negative (Negative) 12/10/21 14:21 Urine WBC (Auto) 125.0 /HPF (0.0-6.0) H 12/10/21 14:21 Urine RBC (Auto) 14.0 /HPF (0.0-6.0) 12/10/21 14:21 U Epithel Cells (Auto) 7.0 /HPF (0-13.0) 12/10/21 14:21 Urine Bacteria (Auto) 2+ /HPF (Negative) 12/10/21 14:21 Urine RBC (Manual) 2+ (Negative) 12/10/21 14:21 Urine Mucus Few /HPF 12/10/21 14:21 Random Vancomycin 19.5 ug/mL (0-40.0) 12/12/21 04:36 Urine Opiates Screen Negative 12/10/21 14:21 Urine Methadone Screen Negative 12/10/21 14:21 Ur Barbiturates Screen Negative 12/10/21 14:21 Ur Phencyclidine Scrn Negative 12/10/21 14:21 Ur Amphetamines Screen Negative 12/10/21 14:21 U Benzodiazepines Scrn Negative 12/10/21 14:21 Urine Cocaine Screen Negative 12/10/21 14:21 U Marijuana (THC) Screen Negative 12/10/21 14:21 Drugs of Abuse Note Disclamer 12/10/21 14:21 Plasma/Serum Alcohol < 0.01 % (0-0.07) 12/10/21 13:46 Microbiology: Microbiology 12/11/21 23:28 Peripheral/Venous Blood Culture - Preliminary Culture in Progress 12/11/21 07:53 Peripheral/Venous Blood Culture - Preliminary NO GROWTH AFTER 24 HOURS Steven/IV: Voiding Method Indwelling Catheter Active Medications - Current Medications Current Medications: Generic Name Dose Route Start Last Admin Trade Name Freq PRN Reason Stop Dose Admin Acetaminophen 650 mg 12/10/21 21:37 12/11/21 20:36 Acetaminophen 325 Mg Tab PO 650 mg Q4H PRN Administration Pain MILD(1-3)/Fever >100.5/WEBB Famotidine 10 mg 12/13/21 10:00 12/13/21 10:21 Famotidine 10 Mg Tab FEEDTUBE 10 mg BID PAIGE Administration Heparin Sodium (Porcine) 5,000 unit 12/10/21 22:00 12/13/21 10:21 Heparin 5,000 Unit/1 Ml Vial SUB-Q 5,000 unit Q12HR PAIGE Administration Vasopressin 20 unit/ Sodium 101 mls @ 9.09 mls/hr 12/11/21 09:00 12/12/21 23:05 Chloride IV 0.03 units/min TITR PAIGE 9.09 mls/hr Administration Protocol 0.03 UNITS/MIN Ondansetron HCl 4 mg 12/10/21 21:37 Ondansetron 4 Mg/2 Ml Inj IV Q8H PRN Nausea And Vomiting Sodium Chloride 10 ml 12/10/21 22:00 12/13/21 10:21 Sodium Chloride 0.9% 10 Ml Flush Syringe IV 10 ml BID PAIGE Administration Sodium Chloride 10 ml 12/10/21 21:37 Sodium Chloride 0.9% 10 Ml Flush Syringe IV PRN PRN LINE FLUSH Nutrition/Malnutrition Assess - Dietary Evaluation Nutrition/Malnutrition Findings: Nutrition Notes Start: 12/11/21 12:02 Freq: Status: Active Protocol: Document 12/11/21 12:04 [facility] (Rec: 12/11/21 12:16 [facility] [id number]) Nutrition Notes Need for Assessment generated from: MD Order,MST Initial or Follow up Assessment Other Pertinent Diagnosis Cardiac arrest, anoxic encephalopathy, seizures, hypotension, pneu... Current Diet No diet order Labs/Tests CO2 21 BUN 23 Cr 3.0 Glu 202 Adjusted Ca2+ = 8.08 Pertinent Medications Norepinephrine 26mcg/min Vasopressin 0.03 units/min Height 5 ft 3 in Weight 84 kg [place] Body Weight (kg) 52.27 BMI 32.8 Intake Prior to Admission Good Weight change and time frame Unsure of unintentional wt loss [employer]ACHINE [employer] per MST. Weight Status Obese Subjective/Other Information RD consult for malnutrition screening tool score 2 (Unsure wt loss / no decreased appetite) per MD. Pt mechanically ventilated w/ O2 Saturation 93% per physical assessment notes and receiving 2 pressors at this time. Visited and spoke with family who was unable to provide information regarding UBW or wt loss. Family reported pt usually consumed dinner meals. Contact for daughter was provided - but unable to reach in attempt. RN reported no plans of feeding at this time d/t anoxic encephalopathy. Nutrition supplements removed from orders d/t NPO status. Physical assessment reviewed. Will continue to monitor and follow-up per protocol. Burn Absent Trauma Absent GI Symptoms None Food Allergy No Skin Integrity/Comment Blue/Black fingernails/bruised skin Current % PO Other Minimum of two criteria No Fluid Accumulation N/A Reduced Regulator Inspector Strength N/A (non-severe) Protein-Calorie Malnutrition N\A #1 Nutrition Diagnosis Swallowing difficulty Etiology Mechanical ventilation As Evidenced by Signs and Symptoms No current diet order for pt, but presumed NPO. Is patient on ventilator? Yes Is Patient Ambulatory and/or Out of Bed No [facility] 1771.884 Kcal/Kg value to use for calculation 14 Approximate Energy Requirements Using 1176 kcal/Kg Calculation Used for Recommendations Kcal/kg Additional Notes Estimated energy requirements in relation to pt's overall medical condition. Estimated protein needs: 2.0g/ kg IBW = 105g PRO q day Estimated fluid needs: 1mL/ kcal Nutrition Intervention Nutrition Support: Initiate TF when medically feasible. Goal #1 Pt to advance to enteral nutrition or PO intake within 48-72 hours. Follow-Up By: 12/14/21 Additional Comments Monitor diet advancement and medication administration.
--- NOTE | 2021-12-13 13:10 | Event Note ---
Date: 12/13/21 Family conference held to discuss goals of care.. Patient daughters, Paz Jarvis , Sonu Li , her Mother, 3 sisters and a [id number]. Discussed presentation, clinical data, imaging studies to family. Also discussed neurological prognosis with family and given imaging studies revealing gross findings consistent with brain anoxia and exam demonstrating no cough,gag, and pupilary reflex. Poor prognosis was communicated. Family made decision to withdraw care after arrangements made (would like body to be moved to [facility]) and family has had a chance to mourn/say goodbye's at bedside. POA daughter Paz states she would sign the withdrawal paper work this evening or tomorrow AM. Support given by myself, CM, and ICU staff. They declined organ donation during our conversation. Life link rep approached by me immediately after I had conversation with family. I directed her to the family for their final decision. +30 min cct
--- NOTE | 2021-12-13 13:50 | Progress Note ---
Assessment and Plan 41 Y/O FEMALE WITH OUT OF HOSPITAL CARDIAC ARREST, UNKNOWN DOWNTIME WITH ROSC FOUND TO HAVE SEVERE ANOXIC BRAIN INJURY, RENAL FAILURE AND CARDIOVASCULAR COLLAPSE 12/13/21: Worsening renal function despite hydration. Systolic dysfunction on echo. Very very poor prognosis. 12/12/21: Ok with IV hydration to see if this will improve renal function. Follow up echo report. Overall prognosis is still very very poor. Wean pressors as tolerated. No family present at bedside this morning, but plans for a meeting are in the works. 1. ECHO 2. NEUROLOGY CONSULT 3. SUPPORTIVE CARE 4. GIVEN THE CLINICAL FINDINGS AND IMAGING, LIKELIHOOD OF RECOVERY IS NONE. WILL DISCUSS WITH FAMILY. POOR PROGNOSIS. Subjective Date of service: 12/13/21 Interval history: IMS had family meeting. Reviewed details of that. Objective Vital Signs - 12hr 12/13/21 12/13/21 12/13/21 02:00 02:15 02:30 Temperature Pulse Rate 79 78 78 Pulse Rate [ From Monitor] Pulse Rate [ Left Radial] Respiratory 20 20 20 Rate Blood Pressure 105/72 105/70 110/72 O2 Sat by Pulse 100 100 Oximetry 12/13/21 12/13/21 12/13/21 02:45 03:00 03:15 Temperature Pulse Rate 76 77 77 Pulse Rate [ From Monitor] Pulse Rate [ Left Radial] Respiratory 20 20 20 Rate Blood Pressure 107/73 116/77 118/77 O2 Sat by Pulse 99 Oximetry 12/13/21 12/13/21 12/13/21 03:30 03:45 04:00 Temperature 97.7 F Pulse Rate 76 75 75 Pulse Rate [ 75 From Monitor] Pulse Rate [ Left Radial] Respiratory 20 20 20 Rate Blood Pressure 110/71 111/74 109/73 O2 Sat by Pulse 97 97 98 Oximetry 12/13/21 12/13/21 12/13/21 04:46 05:00 05:30 Temperature Pulse Rate 75 Pulse Rate [ From Monitor] Pulse Rate [ Left Radial] Respiratory Rate Blood Pressure 101/66 94/58 95/61 O2 Sat by Pulse 98 Oximetry 12/13/21 12/13/21 12/13/21 05:48 06:00 06:16 Temperature Pulse Rate 76 76 75 Pulse Rate [ From Monitor] Pulse Rate [ Left Radial] Respiratory 16 16 16 Rate Blood Pressure 95/61 93/58 O2 Sat by Pulse 98 98 98 Oximetry 12/13/21 12/13/21 12/13/21 06:30 06:46 07:00 Temperature Pulse Rate 75 76 78 Pulse Rate [ From Monitor] Pulse Rate [ Left Radial] Respiratory 16 16 16 Rate Blood Pressure 93/58 93/60 93/60 O2 Sat by Pulse 99 98 99 Oximetry 12/13/21 12/13/21 12/13/21 07:10 07:16 07:30 Temperature 97.5 F L Pulse Rate 75 75 Pulse Rate [ From Monitor] Pulse Rate [ Left Radial] Respiratory 16 16 Rate Blood Pressure 99/64 99/64 O2 Sat by Pulse 98 96 Oximetry 12/13/21 12/13/21 12/13/21 07:46 08:00 08:16 Temperature Pulse Rate 75 74 73 Pulse Rate [ 74 From Monitor] Pulse Rate [ 74 Left Radial] Respiratory 16 16 16 Rate Blood Pressure 96/61 96/61 105/67 O2 Sat by Pulse 99 98 98 Oximetry 12/13/21 12/13/21 12/13/21 08:18 08:30 08:46 Temperature Pulse Rate 76 74 74 Pulse Rate [ From Monitor] Pulse Rate [ Left Radial] Respiratory 16 16 Rate Blood Pressure 105/67 101/65 O2 Sat by Pulse 99 Oximetry 12/13/21 12/13/21 12/13/21 09:00 09:10 09:16 Temperature Pulse Rate 74 72 72 Pulse Rate [ From Monitor] Pulse Rate [ Left Radial] Respiratory 16 16 Rate Blood Pressure 101/65 113/74 103/65 O2 Sat by Pulse 98 98 99 Oximetry 12/13/21 12/13/21 12/13/21 09:30 09:49 10:00 Temperature Pulse Rate 73 71 73 Pulse Rate [ From Monitor] Pulse Rate [ Left Radial] Respiratory 16 16 16 Rate Blood Pressure 103/65 93/58 92/61 O2 Sat by Pulse 99 99 99 Oximetry 12/13/21 12/13/21 12/13/21 10:15 10:30 10:45 Temperature Pulse Rate 73 74 73 Pulse Rate [ From Monitor] Pulse Rate [ Left Radial] Respiratory 16 16 16 Rate Blood Pressure 92/61 113/74 113/74 O2 Sat by Pulse 99 97 98 Oximetry 12/13/21 12/13/21 12/13/21 11:00 11:09 11:15 Temperature Pulse Rate 72 73 72 Pulse Rate [ 73 From Monitor] Pulse Rate [ Left Radial] Respiratory 16 20 16 Rate Blood Pressure 110/71 113/74 O2 Sat by Pulse 98 98 98 Oximetry 12/13/21 12/13/21 12/13/21 11:23 11:30 11:45 Temperature 97.4 F L Pulse Rate 73 74 Pulse Rate [ From Monitor] Pulse Rate [ Left Radial] Respiratory 16 16 Rate Blood Pressure 108/72 108/72 O2 Sat by Pulse 98 98 Oximetry 12/13/21 12/13/21 12:00 13:29 Temperature Pulse Rate 73 73 Pulse Rate [ From Monitor] Pulse Rate [ Left Radial] Respiratory 16 Rate Blood Pressure 112/72 112/72 O2 Sat by Pulse 97 98 Oximetry Constitutional: comatose Eyes: other (PUPILS FIXED AND DILATED) ENT: other (ORALLY INTUBATED, NO COUGH, NO GAG) Neck: supple Effort: normal Ascultation: Bilateral: clear CBC and BMP: 12/13/21 04:13 12/13/21 04:00 ABG, PT/INR, D-dimer: ABG ABG pH 7.313 pH Units (7.350-7.450) L 12/13/21 03:31 ABG pCO2 29.2 mm Hg 12/13/21 03:31 ABG pO2 117.0 mm Hg (80.0-90.0) H 12/13/21 03:31 ABG O2 Saturation 98.1 % (95.0-99.0) 12/13/21 03:31 Abnormal lab findings: Abnormal Labs 12/10/21 12/10/21 12/10/21 13:27 13:46 13:46 WBC 13.0 H Hgb Hct MCV 105 H MCHC 29 L RDW 18.3 H Plt Count Lymph % (Auto) Lymph # (Auto) Seg Neutrophils % Seg Neuts % (Manual) 71.0 H Seg Neutrophils # Seg Neutrophils # Man 9.2 H ABG pH ABG pO2 ABG HCO3 ABG Base Excess ABG Hemoglobin VBG pH Oxyhemoglobin Potassium 3.4 L Chloride 92.6 L Carbon Dioxide 15 L BUN 6 L Creatinine Glucose 349 H POC Glucose 354 H Lactic Acid Calcium 11.2 H AST 76 H ALT Total Creatine Kinase 170 H Total Protein 5.8 L Albumin 3.6 L Free T4 Urine WBC (Auto) 12/10/21 12/10/21 12/10/21 14:12 14:12 14:12 WBC Hgb Hct MCV MCHC RDW Plt Count Lymph % (Auto) Lymph # (Auto) Seg Neutrophils % Seg Neuts % (Manual) Seg Neutrophils # Seg Neutrophils # Man ABG pH ABG pO2 ABG HCO3 ABG Base Excess ABG Hemoglobin VBG pH 6.888 L* Oxyhemoglobin Potassium Chloride Carbon Dioxide BUN Creatinine Glucose POC Glucose Lactic Acid 17.70 H* Calcium AST ALT Total Creatine Kinase Total Protein Albumin Free T4 0.70 L Urine WBC (Auto) 12/10/21 12/10/21 12/10/21 14:21 14:40 15:31 WBC Hgb Hct MCV MCHC RDW Plt Count Lymph % (Auto) Lymph # (Auto) Seg Neutrophils % Seg Neuts % (Manual) Seg Neutrophils # Seg Neutrophils # Man ABG pH 6.969 L* ABG pO2 163.5 H ABG HCO3 16.5 L ABG Base Excess -16.2 L ABG Hemoglobin VBG pH Oxyhemoglobin 94.9 L Potassium Chloride Carbon Dioxide BUN Creatinine Glucose POC Glucose Lactic Acid 11.40 H* Calcium AST ALT Total Creatine Kinase Total Protein Albumin Free T4 Urine WBC (Auto) 125.0 H 12/10/21 12/10/21 12/11/21 16:23 22:54 02:23 WBC Hgb Hct MCV MCHC RDW Plt Count Lymph % (Auto) Lymph # (Auto) Seg Neutrophils % Seg Neuts % (Manual) Seg Neutrophils # Seg Neutrophils # Man ABG pH ABG pO2 ABG HCO3 ABG Base Excess ABG Hemoglobin VBG pH Oxyhemoglobin Potassium Chloride Carbon Dioxide BUN Creatinine Glucose POC Glucose 187 H Lactic Acid 10.30 H* 2.20 H* Calcium AST ALT Total Creatine Kinase Total Protein Albumin Free T4 Urine WBC (Auto) 12/11/21 12/11/21 12/11/21 04:00 04:22 05:47 WBC Hgb 14.7 H Hct 46.1 H MCV MCHC RDW 17.8 H Plt Count Lymph % (Auto) 8.0 L Lymph # (Auto) 0.8 L Seg Neutrophils % 87.6 H Seg Neuts % (Manual) Seg Neutrophils # 9.1 H Seg Neutrophils # Man ABG pH 7.276 L ABG pO2 111.0 H ABG HCO3 15.7 L ABG Base Excess -10.0 L ABG Hemoglobin 16.1 H VBG pH Oxyhemoglobin Potassium Chloride Carbon Dioxide 21 L BUN 23 H Creatinine 3.0 H D Glucose 202 H POC Glucose Lactic Acid Calcium 7.6 L D AST 319 H ALT 123 H Total Creatine Kinase Total Protein 5.7 L Albumin 3.4 L Free T4 Urine WBC (Auto) 12/11/21 12/11/21 12/12/21 06:06 23:48 04:30 WBC Hgb Hct MCV MCHC RDW Plt Count Lymph % (Auto) Lymph # (Auto) Seg Neutrophils % Seg Neuts % (Manual) Seg Neutrophils # Seg Neutrophils # Man ABG pH 7.257 L ABG pO2 90.4 H ABG HCO3 13.9 L ABG Base Excess -11.9 L ABG Hemoglobin VBG pH Oxyhemoglobin Potassium Chloride Carbon Dioxide BUN Creatinine Glucose POC Glucose 189 H 139 H Lactic Acid Calcium AST ALT Total Creatine Kinase Total Protein Albumin Free T4 Urine WBC (Auto) 12/12/21 12/12/21 12/12/21 04:36 04:36 08:42 WBC 18.4 H Hgb Hct MCV MCHC RDW 17.7 H Plt Count 117 L Lymph % (Auto) Lymph # (Auto) Seg Neutrophils % Seg Neuts % (Manual) Seg Neutrophils # Seg Neutrophils # Man ABG pH ABG pO2 ABG HCO3 ABG Base Excess ABG Hemoglobin VBG pH Oxyhemoglobin Potassium Chloride Carbon Dioxide 11 L D BUN 43 H Creatinine 5.0 H D Glucose 160 H POC Glucose 149 H Lactic Acid Calcium 6.8 L AST ALT Total Creatine Kinase Total Protein Albumin Free T4 Urine WBC (Auto) 12/12/21 12/13/21 12/13/21 16:10 03:31 04:00 WBC Hgb Hct MCV MCHC RDW Plt Count Lymph % (Auto) Lymph # (Auto) Seg Neutrophils % Seg Neuts % (Manual) Seg Neutrophils # Seg Neutrophils # Man ABG pH 7.313 L ABG pO2 117.0 H ABG HCO3 14.4 L ABG Base Excess -10.4 L ABG Hemoglobin 11.9 L VBG pH Oxyhemoglobin Potassium Chloride 108.9 H Carbon Dioxide 17 L BUN 63 H Creatinine 5.3 H Glucose 152 H POC Glucose 123 H Lactic Acid Calcium 6.4 L AST ALT Total Creatine Kinase Total Protein Albumin Free T4 Urine WBC (Auto) 12/13/21 04:13 WBC 13.4 H Hgb Hct MCV MCHC RDW 18.1 H Plt Count 91 L Lymph % (Auto) Lymph # (Auto) Seg Neutrophils % Seg Neuts % (Manual) Seg Neutrophils # Seg Neutrophils # Man ABG pH ABG pO2 ABG HCO3 ABG Base Excess ABG Hemoglobin VBG pH Oxyhemoglobin Potassium Chloride Carbon Dioxide BUN Creatinine Glucose POC Glucose Lactic Acid Calcium AST ALT Total Creatine Kinase Total Protein Albumin Free T4 Urine WBC (Auto)
--- NOTE | 2021-12-13 15:35 | Consultation ---
History of Present Illness Consult date: 12/13/21 Reason for Consult: Seizure History of present illness: This is a 41-year-old female with seizure disorder and smoker who presented to the emergency department via EMS after being found in cardiac arrest. 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 ACLS was initiated and the patient was intubated using a Kristian airway and ROSC was achieved 3 times with the last just prior to arrival to the ED and was defibrillated once. She did receive 4 rounds of epinephrine, 1 amp of bicarbonate, 1 calcium, amiodarone 300mg and 2 mg of Narcan by EMS. Upon arrival to the emergency department patient was intubated and was found to be in asystole and ACLS protocols were continued with eventual ROSC after 5 minutes. Patient was also started on a dopamine drip in the ED. Patient was admitted to the hospitalist service with consults to [facility] s/p cardiac arrest with acute hypoxic respiratory failure, lactic acidosis, hypokalemia, metabolic acidosis. No family in the room , the patient is intubated . Past History Past Medical History: seizures Past Surgical History: Other (UNABLE TO OBTAIN) Social history: smoking Medications and Allergies Allergies Allergy/AdvReac Type Severity Reaction Status Date / Time No Known Allergies Allergy Verified 11/11/21 10:14 Home Medications Medication Instructions Recorded Confirmed Last Taken Type Baclofen [Lioresal] 10 mg PO TID #30 tab 12/09/20 12/11/21 04/28/21 Rx levETIRAcetam [Keppra TAB] 500 mg PO BID #60 tablet 02/17/21 12/11/21 09/06/21 09:00 Rx Aspirin/Caffeine [Bc Pain Relief 2 each PO QDAY 04/30/21 12/11/21 04/29/21 History Powder Packet] HYDROcodone/APAP 5-325 [[place] 1 each PO Q6HR PRN #24 tablet 05/03/21 12/11/21 Unknown Rx 5/325] dexAMETHasone [Decadron] 4 mg PO DAILY #6 tab 05/03/21 12/11/21 Unknown Rx Ketorolac [Toradol] 10 mg PO Q6H PRN #10 tab 07/02/21 12/11/21 Unknown Rx Ibuprofen [Motrin] 600 mg PO Q8H PRN #20 tablet 11/11/21 12/11/21 Unknown Rx levETIRAcetam [Keppra TAB] 500 mg PO BID #60 tablet 11/11/21 12/11/21 Unknown Rx Active Meds: Active Medications Acetaminophen (Acetaminophen 325 Mg Tab) 650 mg PO Q4H PRN PRN Reason: Pain MILD(1-3)/Fever >100.5/WEBB Last Admin: 12/11/21 20:36 Dose: 650 mg Famotidine (Famotidine 10 Mg Tab) 10 mg FEEDTUBE BID [facility] Last Admin: 12/13/21 10:21 Dose: 10 mg Heparin Sodium (Porcine) (Heparin 5,000 Unit/1 Ml Vial) 5,000 unit SUB-Q Q12HR [facility] Last Admin: 12/13/21 10:21 Dose: 5,000 unit Vasopressin 20 unit/ Sodium (Chloride) 101 mls @ 9.09 mls/hr IV TITR [facility]; Protocol Last Admin: 12/12/21 23:05 Dose: 0.03 units/min, 9.09 mls/hr Ondansetron HCl (Ondansetron 4 Mg/2 Ml Inj) 4 mg IV Q8H PRN PRN Reason: Nausea And Vomiting Sodium Chloride (Sodium Chloride 0.9% 10 Ml Flush Syringe) 10 ml IV BID [facility] Last Admin: 12/13/21 10:21 Dose: 10 ml Sodium Chloride (Sodium Chloride 0.9% 10 Ml Flush Syringe) 10 ml IV PRN PRN PRN Reason: LINE FLUSH Physical Examination - Vital Signs Vital Signs: Vital Signs BP 109/49 12/10/21 13:48 - Physical Exam Narrative exam: 1. The patient is intubated, no gag and no movement in the upper and lower extremity on stimulation . Results - Laboratory Findings CBC and BMP: 12/13/21 04:13 12/13/21 04:00 Abnormal Lab Findings: Abnormal Labs 12/10/21 12/10/21 12/10/21 13:27 13:46 13:46 WBC 13.0 H Hgb Hct MCV 105 H MCHC 29 L RDW 18.3 H Plt Count Lymph % (Auto) Lymph # (Auto) Seg Neutrophils % Seg Neuts % (Manual) 71.0 H Seg Neutrophils # Seg Neutrophils # Man 9.2 H ABG pH ABG pO2 ABG HCO3 ABG Base Excess ABG Hemoglobin VBG pH Oxyhemoglobin Potassium 3.4 L Chloride 92.6 L Carbon Dioxide 15 L BUN 6 L Creatinine Glucose 349 H POC Glucose 354 H Lactic Acid Calcium 11.2 H AST 76 H ALT Total Creatine Kinase 170 H Total Protein 5.8 L Albumin 3.6 L Free T4 Urine WBC (Auto) 12/10/21 12/10/21 12/10/21 14:12 14:12 14:12 WBC Hgb Hct MCV MCHC RDW Plt Count Lymph % (Auto) Lymph # (Auto) Seg Neutrophils % Seg Neuts % (Manual) Seg Neutrophils # Seg Neutrophils # Man ABG pH ABG pO2 ABG HCO3 ABG Base Excess ABG Hemoglobin VBG pH 6.888 L* Oxyhemoglobin Potassium Chloride Carbon Dioxide BUN Creatinine Glucose POC Glucose Lactic Acid 17.70 H* Calcium AST ALT Total Creatine Kinase Total Protein Albumin Free T4 0.70 L Urine WBC (Auto) 12/10/21 12/10/21 12/10/21 14:21 14:40 15:31 WBC Hgb Hct MCV MCHC RDW Plt Count Lymph % (Auto) Lymph # (Auto) Seg Neutrophils % Seg Neuts % (Manual) Seg Neutrophils # Seg Neutrophils # Man ABG pH 6.969 L* ABG pO2 163.5 H ABG HCO3 16.5 L ABG Base Excess -16.2 L ABG Hemoglobin VBG pH Oxyhemoglobin 94.9 L Potassium Chloride Carbon Dioxide BUN Creatinine Glucose POC Glucose Lactic Acid 11.40 H* Calcium AST ALT Total Creatine Kinase Total Protein Albumin Free T4 Urine WBC (Auto) 125.0 H 12/10/21 12/10/21 12/11/21 16:23 22:54 02:23 WBC Hgb Hct MCV MCHC RDW Plt Count Lymph % (Auto) Lymph # (Auto) Seg Neutrophils % Seg Neuts % (Manual) Seg Neutrophils # Seg Neutrophils # Man ABG pH ABG pO2 ABG HCO3 ABG Base Excess ABG Hemoglobin VBG pH Oxyhemoglobin Potassium Chloride Carbon Dioxide BUN Creatinine Glucose POC Glucose 187 H Lactic Acid 10.30 H* 2.20 H* Calcium AST ALT Total Creatine Kinase Total Protein Albumin Free T4 Urine WBC (Auto) 12/11/21 12/11/21 12/11/21 04:00 04:22 05:47 WBC Hgb 14.7 H Hct 46.1 H MCV MCHC RDW 17.8 H Plt Count Lymph % (Auto) 8.0 L Lymph # (Auto) 0.8 L Seg Neutrophils % 87.6 H Seg Neuts % (Manual) Seg Neutrophils # 9.1 H Seg Neutrophils # Man ABG pH 7.276 L ABG pO2 111.0 H ABG HCO3 15.7 L ABG Base Excess -10.0 L ABG Hemoglobin 16.1 H VBG pH Oxyhemoglobin Potassium Chloride Carbon Dioxide 21 L BUN 23 H Creatinine 3.0 H D Glucose 202 H POC Glucose Lactic Acid Calcium 7.6 L D AST 319 H ALT 123 H Total Creatine Kinase Total Protein 5.7 L Albumin 3.4 L Free T4 Urine WBC (Auto) 12/11/21 12/11/21 12/12/21 06:06 23:48 04:30 WBC Hgb Hct MCV MCHC RDW Plt Count Lymph % (Auto) Lymph # (Auto) Seg Neutrophils % Seg Neuts % (Manual) Seg Neutrophils # Seg Neutrophils # Man ABG pH 7.257 L ABG pO2 90.4 H ABG HCO3 13.9 L ABG Base Excess -11.9 L ABG Hemoglobin VBG pH Oxyhemoglobin Potassium Chloride Carbon Dioxide BUN Creatinine Glucose POC Glucose 189 H 139 H Lactic Acid Calcium AST ALT Total Creatine Kinase Total Protein Albumin Free T4 Urine WBC (Auto) 12/12/21 12/12/21 12/12/21 04:36 04:36 08:42 WBC 18.4 H Hgb Hct MCV MCHC RDW 17.7 H Plt Count 117 L Lymph % (Auto) Lymph # (Auto) Seg Neutrophils % Seg Neuts % (Manual) Seg Neutrophils # Seg Neutrophils # Man ABG pH ABG pO2 ABG HCO3 ABG Base Excess ABG Hemoglobin VBG pH Oxyhemoglobin Potassium Chloride Carbon Dioxide 11 L D BUN 43 H Creatinine 5.0 H D Glucose 160 H POC Glucose 149 H Lactic Acid Calcium 6.8 L AST ALT Total Creatine Kinase Total Protein Albumin Free T4 Urine WBC (Auto) 12/12/21 12/13/21 12/13/21 16:10 03:31 04:00 WBC Hgb Hct MCV MCHC RDW Plt Count Lymph % (Auto) Lymph # (Auto) Seg Neutrophils % Seg Neuts % (Manual) Seg Neutrophils # Seg Neutrophils # Man ABG pH 7.313 L ABG pO2 117.0 H ABG HCO3 14.4 L ABG Base Excess -10.4 L ABG Hemoglobin 11.9 L VBG pH Oxyhemoglobin Potassium Chloride 108.9 H Carbon Dioxide 17 L BUN 63 H Creatinine 5.3 H Glucose 152 H POC Glucose 123 H Lactic Acid Calcium 6.4 L AST ALT Total Creatine Kinase Total Protein Albumin Free T4 Urine WBC (Auto) 12/13/21 04:13 WBC 13.4 H Hgb Hct MCV MCHC RDW 18.1 H Plt Count 91 L Lymph % (Auto) Lymph # (Auto) Seg Neutrophils % Seg Neuts % (Manual) Seg Neutrophils # Seg Neutrophils # Man ABG pH ABG pO2 ABG HCO3 ABG Base Excess ABG Hemoglobin VBG pH Oxyhemoglobin Potassium Chloride Carbon Dioxide BUN Creatinine Glucose POC Glucose Lactic Acid Calcium AST ALT Total Creatine Kinase Total Protein Albumin Free T4 Urine WBC (Auto) Assessment and Plan 1. Hypoxic - Ischemic Brain Damage secondary to Arrest . 2. Reviewed Head CT . 3. EEG for Prognostication . 4. Continue All Home Medications . 5. Neurological Prognosis is poor Dr. Rodrigez
[2021-12-13] MEDS: SENNOSIDES ORAL LIQD 8.8 MG/5 ML ORAL LIQD PO SCH ×2 (22:25→22:28)
[2021-12-13] MEDS: VASOPRESSIN 20 UNIT in SODIUM CHLORIDE 0.9% 100 ML IV SCH (23:48)
[2021-12-14 04:49] LABS: Hematocrit 32.6 % (30.3-42.9); Hemoglobin 10.7 gm/dl (10.1-14.3); Mean Corpuscular HGB Conc 33 % (30-34); Mean Corpuscular Volume 93 fl (79-97); Red Blood Count 3.51 M/mm3 (3.65-5.03); Red Cell Distribution Width 17.9 % (13.2-15.2)
[2021-12-14 04:50] LABS: Platelet Count 67 K/mm3 (140-440)
[2021-12-14 05:10] LABS: ABG Base Excess -7.7 mmol/L (-2.0-3.0); ABG HCO3 18.4 mmol/L (20.0-26.0); ABG Methemoglobin 0.5 % (0.0-1.5); ABG PCO2 39.2 mm Hg; ABG PH 7.288 pH Units (7.350-7.450); ABG PO2 174.3 mm Hg (80.0-90.0)
[2021-12-14 05:12] LABS: Albumin 2.5 g/dL (3.9-5); Calcium 7.1 mg/dL (8.4-10.2)
[2021-12-14] MEDS: FAMOTIDINE 10 MG TAB FEEDTUBE SCH (10:04)
[2021-12-14] MEDS ORDERED: FAMOTIDINE 20 MG TAB FEEDTUBE SCH (11:00)
[2021-12-14] MEDS: VASOPRESSIN 20 UNIT in SODIUM CHLORIDE 0.9% 100 ML IV SCH ×2 (12:54→23:02)
--- NOTE | 2021-12-14 13:08 | Progress Note ---
Assessment and Plan 41 Y/O FEMALE WITH OUT OF HOSPITAL CARDIAC ARREST, UNKNOWN DOWNTIME WITH ROSC FOUND TO HAVE SEVERE ANOXIC BRAIN INJURY, RENAL FAILURE AND CARDIOVASCULAR COLLAPSE 12/14/21: Supportive measures. Per chart patient is an organ donor. [email or web address] notified. IMS to speak with family today about brain . Will help them attempt apnea test. very very poor prognosis 12/13/21: Worsening renal function despite hydration. Systolic dysfunction on echo. Very very poor prognosis. 12/12/21: Ok with IV hydration to see if this will improve renal function. Follow up echo report. Overall prognosis is still very very poor. Wean pressors as tolerated. No family present at bedside this morning, but plans for a meeting are in the works. 1. ECHO 2. NEUROLOGY CONSULT 3. SUPPORTIVE CARE 4. GIVEN THE CLINICAL FINDINGS AND IMAGING, LIKELIHOOD OF RECOVERY IS NONE. WILL DISCUSS WITH FAMILY. POOR PROGNOSIS. Subjective Date of service: 12/14/21 Interval history: Remains unresponsive. no cough no gag Objective Vital Signs - 12hr 12/14/21 12/14/21 12/14/21 01:16 01:30 01:46 Temperature Pulse Rate 72 69 70 Pulse Rate [ From Monitor] Respiratory 15 16 16 Rate Blood Pressure 118/77 101/61 101/61 O2 Sat by Pulse 99 98 99 Oximetry 12/14/21 12/14/21 12/14/21 02:00 02:16 02:30 Temperature Pulse Rate 69 68 83 Pulse Rate [ From Monitor] Respiratory 16 16 16 Rate Blood Pressure 102/63 102/63 103/74 O2 Sat by Pulse 99 99 99 Oximetry 12/14/21 12/14/21 12/14/21 02:46 03:00 03:16 Temperature Pulse Rate 69 69 67 Pulse Rate [ From Monitor] Respiratory 16 16 16 Rate Blood Pressure 103/74 107/68 107/68 O2 Sat by Pulse 99 98 99 Oximetry 12/14/21 12/14/21 12/14/21 03:30 03:46 04:00 Temperature 97.5 F L Pulse Rate 66 66 64 Pulse Rate [ 64 From Monitor] Respiratory 16 16 20 Rate Blood Pressure 91/54 91/54 87/53 O2 Sat by Pulse 100 99 98 Oximetry 12/14/21 12/14/21 12/14/21 04:16 04:25 04:30 Temperature Pulse Rate 66 65 65 Pulse Rate [ From Monitor] Respiratory 16 16 Rate Blood Pressure 87/53 91/55 91/55 O2 Sat by Pulse 99 99 98 Oximetry 12/14/21 12/14/21 12/14/21 04:46 05:00 05:16 Temperature Pulse Rate 66 65 63 Pulse Rate [ From Monitor] Respiratory 16 16 16 Rate Blood Pressure 91/55 91/54 91/54 O2 Sat by Pulse 100 100 Oximetry 12/14/21 12/14/21 12/14/21 05:30 05:31 05:46 Temperature Pulse Rate 65 63 Pulse Rate [ From Monitor] Respiratory 16 16 Rate Blood Pressure 92/54 92/54 O2 Sat by Pulse 99 99 100 Oximetry 12/14/21 12/14/21 12/14/21 06:00 06:04 06:16 Temperature Pulse Rate 64 64 Pulse Rate [ From Monitor] Respiratory 16 16 Rate Blood Pressure 95/56 95/56 O2 Sat by Pulse 100 99 100 Oximetry 12/14/21 12/14/21 12/14/21 06:30 06:45 07:00 Temperature Pulse Rate 63 62 63 Pulse Rate [ From Monitor] Respiratory 16 16 18 Rate Blood Pressure 95/59 93/59 O2 Sat by Pulse 100 100 Oximetry 12/14/21 12/14/21 12/14/21 07:05 07:12 07:16 Temperature 98.0 F Pulse Rate 63 62 Pulse Rate [ 63 From Monitor] Respiratory 20 16 Rate Blood Pressure 93/59 O2 Sat by Pulse 100 100 Oximetry 12/14/21 12/14/21 12/14/21 07:30 07:46 08:00 Temperature Pulse Rate 63 63 62 Pulse Rate [ From Monitor] Respiratory 16 13 16 Rate Blood Pressure 94/58 94/58 91/58 O2 Sat by Pulse 98 99 Oximetry 12/14/21 12/14/21 12/14/21 08:16 08:30 08:46 Temperature Pulse Rate 61 59 L 60 Pulse Rate [ From Monitor] Respiratory 16 16 16 Rate Blood Pressure 91/58 88/55 91/58 O2 Sat by Pulse 99 99 Oximetry 12/14/21 12/14/21 12/14/21 09:00 09:16 09:30 Temperature Pulse Rate 59 L 58 L 58 L Pulse Rate [ From Monitor] Respiratory 16 16 16 Rate Blood Pressure 89/53 89/53 89/56 O2 Sat by Pulse 99 99 98 Oximetry 12/14/21 12/14/21 12/14/21 09:46 10:00 10:16 Temperature Pulse Rate 58 L 64 58 L Pulse Rate [ From Monitor] Respiratory 16 16 16 Rate Blood Pressure 89/56 97/63 97/63 O2 Sat by Pulse 99 99 Oximetry 12/14/21 12/14/21 12/14/21 10:30 10:46 11:00 Temperature Pulse Rate 62 61 58 L Pulse Rate [ From Monitor] Respiratory 16 16 16 Rate Blood Pressure 91/59 91/59 84/54 O2 Sat by Pulse 99 Oximetry 12/14/21 12/14/21 12/14/21 11:16 11:30 11:39 Temperature 98.1 F Pulse Rate 56 L 60 Pulse Rate [ From Monitor] Respiratory 16 16 Rate Blood Pressure 84/54 105/68 O2 Sat by Pulse 99 96 Oximetry 12/14/21 12/14/21 12/14/21 11:46 11:54 12:00 Temperature Pulse Rate 64 58 L 57 L Pulse Rate [ 57 L From Monitor] Respiratory 16 20 Rate Blood Pressure 105/68 105/68 92/60 O2 Sat by Pulse 99 99 99 Oximetry 12/14/21 12:16 Temperature Pulse Rate 57 L Pulse Rate [ From Monitor] Respiratory 16 Rate Blood Pressure 92/60 O2 Sat by Pulse 99 Oximetry Constitutional: comatose Eyes: other (PUPILS FIXED AND DILATED) ENT: other (ORALLY INTUBATED, NO COUGH, NO GAG) Neck: supple Effort: normal Ascultation: Bilateral: clear CBC and BMP: 12/14/21 04:27 12/14/21 21:10 ABG, PT/INR, D-dimer: ABG ABG pH 7.288 pH Units (7.350-7.450) L 12/14/21 04:25 ABG pCO2 39.2 mm Hg 12/14/21 04:25 ABG pO2 174.3 mm Hg (80.0-90.0) H 12/14/21 04:25 ABG O2 Saturation 99.0 % (95.0-99.0) 12/14/21 04:25 Abnormal lab findings: Abnormal Labs 12/10/21 12/10/21 12/10/21 13:27 13:46 13:46 WBC 13.0 H RBC Hgb Hct MCV 105 H MCHC 29 L RDW 18.3 H Plt Count Lymph % (Auto) Lymph # (Auto) Seg Neutrophils % Seg Neuts % (Manual) 71.0 H Seg Neutrophils # Seg Neutrophils # Man 9.2 H ABG pH ABG pO2 ABG HCO3 ABG Base Excess ABG Hemoglobin VBG pH Oxyhemoglobin Potassium 3.4 L Chloride 92.6 L Carbon Dioxide 15 L BUN 6 L Creatinine Glucose 349 H POC Glucose 354 H Lactic Acid Calcium 11.2 H AST 76 H ALT Total Creatine Kinase 170 H Total Protein 5.8 L Albumin 3.6 L Free T4 Urine WBC (Auto) 12/10/21 12/10/21 12/10/21 14:12 14:12 14:12 WBC RBC Hgb Hct MCV MCHC RDW Plt Count Lymph % (Auto) Lymph # (Auto) Seg Neutrophils % Seg Neuts % (Manual) Seg Neutrophils # Seg Neutrophils # Man ABG pH ABG pO2 ABG HCO3 ABG Base Excess ABG Hemoglobin VBG pH 6.888 L* Oxyhemoglobin Potassium Chloride Carbon Dioxide BUN Creatinine Glucose POC Glucose Lactic Acid 17.70 H* Calcium AST ALT Total Creatine Kinase Total Protein Albumin Free T4 0.70 L Urine WBC (Auto) 12/10/21 12/10/21 12/10/21 14:21 14:40 15:31 WBC RBC Hgb Hct MCV MCHC RDW Plt Count Lymph % (Auto) Lymph # (Auto) Seg Neutrophils % Seg Neuts % (Manual) Seg Neutrophils # Seg Neutrophils # Man ABG pH 6.969 L* ABG pO2 163.5 H ABG HCO3 16.5 L ABG Base Excess -16.2 L ABG Hemoglobin VBG pH Oxyhemoglobin 94.9 L Potassium Chloride Carbon Dioxide BUN Creatinine Glucose POC Glucose Lactic Acid 11.40 H* Calcium AST ALT Total Creatine Kinase Total Protein Albumin Free T4 Urine WBC (Auto) 125.0 H 12/10/21 12/10/21 12/11/21 16:23 22:54 02:23 WBC RBC Hgb Hct MCV MCHC RDW Plt Count Lymph % (Auto) Lymph # (Auto) Seg Neutrophils % Seg Neuts % (Manual) Seg Neutrophils # Seg Neutrophils # Man ABG pH ABG pO2 ABG HCO3 ABG Base Excess ABG Hemoglobin VBG pH Oxyhemoglobin Potassium Chloride Carbon Dioxide BUN Creatinine Glucose POC Glucose 187 H Lactic Acid 10.30 H* 2.20 H* Calcium AST ALT Total Creatine Kinase Total Protein Albumin Free T4 Urine WBC (Auto) 12/11/21 12/11/21 12/11/21 04:00 04:22 05:47 WBC RBC Hgb 14.7 H Hct 46.1 H MCV MCHC RDW 17.8 H Plt Count Lymph % (Auto) 8.0 L Lymph # (Auto) 0.8 L Seg Neutrophils % 87.6 H Seg Neuts % (Manual) Seg Neutrophils # 9.1 H Seg Neutrophils # Man ABG pH 7.276 L ABG pO2 111.0 H ABG HCO3 15.7 L ABG Base Excess -10.0 L ABG Hemoglobin 16.1 H VBG pH Oxyhemoglobin Potassium Chloride Carbon Dioxide 21 L BUN 23 H Creatinine 3.0 H D Glucose 202 H POC Glucose Lactic Acid Calcium 7.6 L D AST 319 H ALT 123 H Total Creatine Kinase Total Protein 5.7 L Albumin 3.4 L Free T4 Urine WBC (Auto) 12/11/21 12/11/21 12/12/21 06:06 23:48 04:30 WBC RBC Hgb Hct MCV MCHC RDW Plt Count Lymph % (Auto) Lymph # (Auto) Seg Neutrophils % Seg Neuts % (Manual) Seg Neutrophils # Seg Neutrophils # Man ABG pH 7.257 L ABG pO2 90.4 H ABG HCO3 13.9 L ABG Base Excess -11.9 L ABG Hemoglobin VBG pH Oxyhemoglobin Potassium Chloride Carbon Dioxide BUN Creatinine Glucose POC Glucose 189 H 139 H Lactic Acid Calcium AST ALT Total Creatine Kinase Total Protein Albumin Free T4 Urine WBC (Auto) 12/12/21 12/12/21 12/12/21 04:36 04:36 08:42 WBC 18.4 H RBC Hgb Hct MCV MCHC RDW 17.7 H Plt Count 117 L Lymph % (Auto) Lymph # (Auto) Seg Neutrophils % Seg Neuts % (Manual) Seg Neutrophils # Seg Neutrophils # Man ABG pH ABG pO2 ABG HCO3 ABG Base Excess ABG Hemoglobin VBG pH Oxyhemoglobin Potassium Chloride Carbon Dioxide 11 L D BUN 43 H Creatinine 5.0 H D Glucose 160 H POC Glucose 149 H Lactic Acid Calcium 6.8 L AST ALT Total Creatine Kinase Total Protein Albumin Free T4 Urine WBC (Auto) 12/12/21 12/13/21 12/13/21 16:10 03:31 04:00 WBC RBC Hgb Hct MCV MCHC RDW Plt Count Lymph % (Auto) Lymph # (Auto) Seg Neutrophils % Seg Neuts % (Manual) Seg Neutrophils # Seg Neutrophils # Man ABG pH 7.313 L ABG pO2 117.0 H ABG HCO3 14.4 L ABG Base Excess -10.4 L ABG Hemoglobin 11.9 L VBG pH Oxyhemoglobin Potassium Chloride 108.9 H Carbon Dioxide 17 L BUN 63 H Creatinine 5.3 H Glucose 152 H POC Glucose 123 H Lactic Acid Calcium 6.4 L AST ALT Total Creatine Kinase Total Protein Albumin Free T4 Urine WBC (Auto) 12/13/21 12/13/21 12/13/21 04:13 11:04 23:57 WBC 13.4 H RBC Hgb Hct MCV MCHC RDW 18.1 H Plt Count 91 L Lymph % (Auto) Lymph # (Auto) Seg Neutrophils % Seg Neuts % (Manual) Seg Neutrophils # Seg Neutrophils # Man ABG pH ABG pO2 ABG HCO3 ABG Base Excess ABG Hemoglobin VBG pH Oxyhemoglobin Potassium Chloride Carbon Dioxide BUN Creatinine Glucose POC Glucose 163 H 135 H Lactic Acid Calcium AST ALT Total Creatine Kinase Total Protein Albumin Free T4 Urine WBC (Auto) 12/14/21 12/14/21 12/14/21 04:25 04:27 04:27 WBC 14.6 H RBC 3.51 L Hgb Hct MCV MCHC RDW 17.9 H Plt Count 67 L Lymph % (Auto) Lymph # (Auto) Seg Neutrophils % Seg Neuts % (Manual) Seg Neutrophils # Seg Neutrophils # Man ABG pH 7.288 L ABG pO2 174.3 H ABG HCO3 18.4 L ABG Base Excess -7.7 L ABG Hemoglobin 11.0 L VBG pH Oxyhemoglobin Potassium Chloride 110.8 H Carbon Dioxide 21 L BUN 77 H Creatinine 5.1 H Glucose 136 H POC Glucose Lactic Acid Calcium 7.1 L AST 57 H ALT 103 H Total Creatine Kinase Total Protein 4.8 L Albumin 2.5 L Free T4 Urine WBC (Auto)
[2021-12-14 14:07] LABS: ABG Base Excess -6.9 mmol/L (-2.0-3.0); ABG HCO3 18.9 mmol/L (20.0-26.0); ABG Methemoglobin 0.5 % (0.0-1.5); ABG Oxygen Saturation 98.9 % (95.0-99.0); ABG PCO2 39.3 mm Hg; ABG PH 7.301 pH Units (7.350-7.450); ABG PO2 162.7 mm Hg (80.0-90.0)
--- NOTE | 2021-12-14 14:16 | Event Note ---
Date: 12/14/21 initiating Apenea test. Discussed the process of the neurology brain with family and they agreeable. They state that they do not want to prolong the process. Discussed with Pulmonary physician on the case and the respiratory therapist.
[2021-12-14] MEDS ORDERED: NORepinephrine/NS 8 MG-250 ML 8 MG/250 ML INFUS..BTL IV ONE (14:34)
[2021-12-14 14:53] LABS: ABG HCO3 19.6 mmol/L (20.0-26.0); ABG Methemoglobin 0.4 % (0.0-1.5); ABG Oxygen Saturation 99.3 % (95.0-99.0); ABG PCO2 55.8 mm Hg; ABG PO2 242.8 mm Hg (80.0-90.0)
[2021-12-14] MEDS ORDERED: NORepinephrine/NS 8 MG-250 ML 8 MG/250 ML INFUS..BTL IV SCH (15:00)
--- NOTE | 2021-12-14 15:02 | Event Note ---
Date: 12/14/21 Apnea test had to be aborted due to hemodynamic instability, test only lasted 7 minutes before patient desaturated to 60%, HR dropped to 40 with systolic blood pressure drooping to 60. Patient was placed back on the ventilator and ABG showed a CO2 OF 55.8. Will obtain a Brain flow scan for confirmatory test. No spontaneous breath was witnessed.
[2021-12-14 15:17] LABS: ABG PH 7.164 pH Units (7.350-7.450)
--- NOTE | 2021-12-14 16:05 | Nuclear Medicine Report ---
NM BRAIN FLOW HISTORY: Anoxic injury COMPARISON: None. TECHNIQUE: Following administration of radiopharmaceutical, followed by a saline flush, immediate dyn amic images of the head and neck were acquired in the anterior projection for one minute. Subsequentl y, static images of the head were obtained. RADIOPHARMACEUTICAL: 20 mCi of [id number] FINDINGS: DYNAMIC IMAGING: No activity in the internal carotid arteries with no identification of the anterior and middle cerebral arteries. DELAYED IMAGING: No intracranial acitivity is identified. Increased activity in the nose is indicati ve of increased collateral flow through the external carotids. Additional Findings: None. IMPRESSION: 1. Intracranial cerebral perfusion is absent. Signer Name: Damon Hudson MD Signed: 12/14/2021 3:58 PM Workstation Name: [employer]
[2021-12-14] MEDS ORDERED: SODIUM CHLORIDE 0.9% 1000 ML 1,000 ML ONE (16:26)
--- NOTE | 2021-12-14 18:14 | Event Note ---
Date: 12/14/21 Unresponsive to verbal and Noxious stimuli Pupil non reactive to light, fixed and dilated No Corneal Reflex Oculovestibular reflex absent Oculocephalic Reflex was absent Gag Reflex absent No response to Noxious stimuli in all limbs No facial reflex noted and no response to Noxious to stimuli THis is exam has been consistent since admission. apnea test was aborted secondary to hemodynamic instability. A Brain Flow was ordered and read at 1538 PM. By definition this would be the time of brain .
--- NOTE | 2021-12-14 18:56 | Death Note ---
Note Date of : 12/14/21 Time of : 15:58 Time Pronounced: 15:58 (Sam flow scan result recieved. Time of based on Brain scan and physical exam. Family notified and condolence expressed.) - Preliminary Cause of (problem) (1) Anoxic brain injury Preliminary cause of (2) Cardiac arrest Preliminary cause of
--- NOTE | 2021-12-14 19:34 | Death Summary ---
<NATALIA JOHNSON - Last Filed: 12/27/21 13:25> Summary - Providers Date of service: 12/14/21 Consults: 12/10/21 21:37 Consult to Physician [CONS] Routine Comment: Consulting Provider: TRIP ELI Physician Instructions: Reason For Exam: Cardiac arrest 12/11/21 13:48 Consult to Physician [CONS] Routine Comment: Consulting Provider: ALEX CARLOS Physician Instructions: Reason For Exam: s/p cardiac arrest 12/13/21 15:51 Consult to Dietitian/Nutrition [CONS] Routine Physician Instructions: Reason For Exam: Reason for Consult: Write/Manage Tube Feeding Attending: ROSELINE LORENZO MD - summary Date of admission: 12/10/21 21:37 Date of : 12/14/21 Reason for admission: s/p out-of hospital cardiac arrest with ROSC Disposition: This is a 41-year old female with known past medical history of seizure disorder and current smoker presented s/p out-of hospital cardiac arrest with ROSC. 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 Approximately 10 minutes later staff went to check on the patient and found her unresponsive on the ground outside. EMS was called and arrived on scene at 12:55 and find the patient in PEA arrest. ACLS protocols were initiated and patient was intubated using a Kristian airway. Per EMS they achieved ROSC 3 times the last which just prior to arrival to the ED. Patient was defibrillated once, administered 4 rounds of epi, 1 amp of sodium bicarb, 1 calcium and Narcan 2 mg prior to arrival. Upon arrival to the ED the Kristian airway was removed and the patient was intubated by the ED physician. Patient coded again in the ED, went in asystole which was treated per ACLS protocol and ROSC was achieved. Post code, patient required vasopressin, LFTs were elevated, with acute kidney injury. CT scan of the head revealed loss of new-white differentiation and diffuse mass effect with effacement of cortical sulci and basilar cisterns as described in detail above. These findings indicate the presence of severe global anoxic injury involving both cerebral hemispheres and cerebellar hemispheres. Patient was admitted to the ICU. Empiric IV abx was initiated for SIRS, CCM and Neurology were consulted. In the ICU, patient remained unresponsive, pupils were blown and nonreactive with no gag/cough reflexes. findings consistent with severe anoxic brain injury. Echocardiogram showed a LVEF of 40-45%. The left ventricle is normal size. Mild concentric left ventricular hypertrophy. Left ventricular systolic function is mild to moderately decreased. Moderate diastolic dysfunction present. Patient's condition, diagnoses, and overall poor prognosis thoroughly discussed with patient's daughters, they verbalized understanding of the info provided, however they were still in doubt. An apnea test was attempted, however, the test was aborted due to hemodynamic instability, test only lasted 7 minutes before patient desaturated to 60%, HR dropped to 40 with systolic blood pressure drooping to 60. No spontaneous breath was witnessed. A NM brain flow scan was then performed which revealed no intracranial cerebral perfusion. Apnea test and NM brain flow scan were thoroughly discussed with patient's daughters, they opted for AND/DNR. Patient was also a registered organ donor, [employer] was also involved. On exam, patient remained unresponsive to verbal and Noxious stimuli. Pupils were non reactive to light, fixed and dilated, with no Corneal Reflex. Oculovestibular, oculocephalic, and gag Reflexes were absent. No response to Noxious stimuli in all limbs. No facial reflex noted and no response to Noxious to stimuli. Base on physical examination and NM brain flow scan result, patient was pronounced on 12/14/2021 at 1558. Patient family were notified at the bedside and condolences expressed. [facility] took over patient care for possible organ donation. Severe Anoxic bBrain Injury S/p cardiac arrest, Systolic Congestive Heart Failure Acute Hypoxic Respiratory Failure Transaminitis moderate protein calorie malnutrition Acute Kidney Injury (NEHA) most likely ATN SIRS, Leukocytosis <ROSELINE LORENZO - Last Filed: 12/30/21 07:10> Summary - Providers Consults: 12/10/21 21:37 Consult to Physician [CONS] Routine Comment: Consulting Provider: TRIP ELI Physician Instructions: Reason For Exam: Cardiac arrest 12/11/21 13:48 Consult to Physician [CONS] Routine Comment: Consulting Provider: ALEX CARLOS Physician Instructions: Reason For Exam: s/p cardiac arrest 12/13/21 15:51 Consult to Dietitian/Nutrition [CONS] Routine Physician Instructions: Reason For Exam: Reason for Consult: Write/Manage Tube Feeding Attending: ROSELINE LORENZO MD - summary Date of admission: 12/10/21 21:37 - Final diagnosis (1) Anoxic brain injury Note: Final diagnosis: (2) Cardiac arrest Note: Final diagnosis:
[2021-12-14 20:40] LABS: ABG Base Excess -7.5 mmol/L (-2.0-3.0); ABG HCO3 17.5 mmol/L (20.0-26.0); ABG Methemoglobin 0.4 % (0.0-1.5); ABG Oxygen Saturation 98.5 % (95.0-99.0); ABG PCO2 33.6 mm Hg; ABG PH 7.334 pH Units (7.350-7.450)
[2021-12-14] MEDS ORDERED: SENNOSIDES ORAL LIQD 8.8 MG/5 ML ORAL LIQD FEEDTUBE SCH (22:00)
[2021-12-14 22:04] LABS: Calcium 7.8 mg/dL (8.4-10.2)
[2021-12-14] MEDS ORDERED: SODIUM CHLORIDE 0.45% 1000 ML IV SOLN IV STA (22:31)
[2021-12-14] MEDS ORDERED: LACTATED RINGERS 1000 ML IV SOLN IV SCH (22:45)
[2021-12-15 00:18] VITALS: BP 110/71
== END 2021-12-15 | DRG 207 ==
LOC: ED 13:21 → CC1 21:37
PROVIDERS: ADMIT Internal Medicine; ATTEND Internal Medicine
PROC: 5A1955Z Respiratory Ventilation, Greater than 96 Consecutive Hours (ICD-10-PCS; principal; 2021-12-10)
PROC: 0BH17EZ Insertion of Endotracheal Airway into Trachea, Via Natural or Artificial Opening (ICD-10-PCS; 2021-12-10)
PROC: 06HY33Z Insertion of Infusion Device into Lower Vein, Percutaneous Approach (ICD-10-PCS; 2021-12-10)
PROC: 5A12012 Performance of Cardiac Output, Single, Manual (ICD-10-PCS; 2021-12-10)
PROC: 4A033R1 Measurement of Arterial Saturation, Peripheral, Percutaneous Approach (ICD-10-PCS; 2021-12-14)
DX: J96.01 Acute respiratory failure with hypoxia (principal); N17.0 Acute kidney failure with tubular necrosis; J69.0 Pneumonitis due to inhalation of food and vomit; G93.1 Anoxic brain damage, not elsewhere classified; E44.0 Moderate protein-calorie malnutrition; R65.10 Systemic inflammatory response syndrome (SIRS) of non-infectious origin without acute organ dysfunction; E87.2 Acidosis; I50.20 Unspecified systolic (congestive) heart failure; I46.9 Cardiac arrest, cause unspecified; Z66 Do not resuscitate; G40.909 Epilepsy, unspecified, not intractable, without status epilepticus; Z68.32 Body mass index [BMI] 32.0-32.9, adult; I95.9 Hypotension, unspecified; E66.9 Obesity, unspecified; Z79.82 Long term (current) use of aspirin
CPT/HCPCS: 36415; 36600; 70450; 71045; 72125; 78601; 80048; 80053; 80202; 80307; 80320; 81001; 82140; 82550; 82553; 82803; 82805; 82962; 83735; 84100; 84439; 84443; 84484; 84703; 85007; 85025; 85027; 87040; 87070; 87205; 93306; 94002; 94003; 96365; 96375; 99285; G0378; J2354; J3490; A9512; C8929; G0480; J0171; J0461; J0692; J1265; J1644; J2370; J3370; J3480; J7030; J7040; J7120